=== PATIENT | female | born 1945 | race Caucasian/White ===

== ENCOUNTER → 2017-04-21 | Outpatient (CLI) | payer OTHER ==
[~2017-04-21] MED LIST: DTR/5 PO; HYDR-5688 PO; Hydrocodone PO; IPRA1AER2 INH; LEVO88TA3 PO; LOSA1TAB PO; NICO21DI4 TOP; OMEP20CA9 PO; OXYC-57 PO; PRVC40 PO; SANDOSTATIN IM; TIOT1AER INH; VNTHFA/IN INH
[2017-04-21 18:53] LABS: BLOOD UREA NITROGEN 10 mg/dl (7-18); BUN/CREATININE RATIO 15.8 (10-20); CALCIUM 8.9 mg/dl (8.5-10.1); CARBON DIOXIDE 28 mmol/L (21-32); CHLORIDE 101 mmol/L (98-107); CREATININE 0.64 mg/dl (0.60-1.20); GLUCOSE 87 mg/dl (70-99); POTASSIUM 4.1 mmol/L (3.5-5.1); SODIUM 135 mmol/L (136-145)
[2017-04-28 04:46] LABS: ACETYLCHOLINE RECEP MODULATING 14; ACETYLCHOLINE RECEPT BLOCKING <15 % inhibit (<15)
== END | disposition home or self-care (01) ==
LOC: C.LABBFT 11:39
PROVIDERS: ATTEND Psychiatry & Neurology Neurology
DX: H53.2 Diplopia (principal); R03.0 Elevated blood-pressure reading, without diagnosis of hypertension

== ENCOUNTER → 2017-07-05 | Outpatient (CLI) | payer OTHER ==
[~2017-07-05] MED LIST changes: -DTR/5 PO; -HYDR-5688 PO; -NICO21DI4 TOP; +OXYB5TAB74 PO
[2017-07-05 12:32] LABS: ALT/SGPT 19 U/L (12-78); AST/SGOT 17 U/L (15-37); BLOOD UREA NITROGEN 5 mg/dl (7-18); BUN/CREATININE RATIO 8.1 (10-20); CALCIUM 8.9 mg/dl (8.5-10.1); CARBON DIOXIDE 30 mmol/L (21-32); CHLORIDE 99 mmol/L (98-107); CREATININE 0.67 mg/dl (0.60-1.20); GLUCOSE 89 mg/dl (70-99); POTASSIUM 4.2 mmol/L (3.5-5.1); SODIUM 134 mmol/L (136-145)
[2017-07-05 12:43] LABS: ALKALINE PHOSPHATASE 93 U/L (45-117); CHOLESTEROL 150 mg/dl (0-200); CHOLESTEROL/HDL RATIO 3.9; HDL CHOLESTEROL 38 mg/dl; LDL CHOLESTEROL CALCULATED 66 mg/dl; THYROID STIMULATING HORMONE 0.116 uIu/ml (0.300-4.500); TRIGLYCERIDES 230 mg/dl (0-150); VERY LOW DENSITY LIPOPROT CALC 46 mg/dl
== END | disposition home or self-care (01) ==
LOC: C.LABBFT 09:37
PROVIDERS: ATTEND Physician Assistant Medical
DX: E78.5 Hyperlipidemia, unspecified (principal); E03.9 Hypothyroidism, unspecified; I10 Essential (primary) hypertension

== ENCOUNTER → 2017-08-10 | Outpatient (CLI) | payer OTHER ==
[~2017-08-10] MED LIST changes: -IPRA1AER2 INH; -LEVO88TA3 PO; -LOSA1TAB PO; -OMEP20CA9 PO; -OXYB5TAB74 PO; -PRVC40 PO; -SANDOSTATIN IM; -TIOT1AER INH; -VNTHFA/IN INH
--- NOTE | 2017-08-10 16:04 | DIAGNOSTIC IMAGING REPORT ---
TWO VIEW CHEST CLINICAL HISTORY: COPD. Chronic cough. FINDINGS: PA and lateral chest radiographs are compared to study dated 07/02/2013 and correlated with chest CT dated 04/28/2016. The PA view is degraded by patient rotation The cardiomediastinal silhouette is unremarkable. There is atherosclerotic calcification of the thoracic aorta. Emphysema and chronic interstitial thickening are similar to previous. No airspace consolidation or pleural effusion is identified. A nodular density projecting over the right lung base may represent a nipple shadow. There is no pneumothorax. The skeletal structures are osteopenic. Degenerative change and kyphoscoliosis are noted in the thoracic spine. Atherosclerotic calcification is seen in the carotid bulbs. IMPRESSION: 1. Emphysema with no acute cardiopulmonary abnormality. 2. A nodular density projecting over the right lower lung may represent a nipple shadow. A repeat examination with nipple markers is recommended for reassessment. Electronically signed by: Oliver Galvez M.D. 08/10/2017 4:03 PM Dictated Date/Time: 08/10/2017 4:00 PM
== END | disposition home or self-care (01) ==
LOC: C.RAD1850 15:14
PROVIDERS: ATTEND Physician Assistant Medical
DX: J44.9 Chronic obstructive pulmonary disease, unspecified (principal); R93.8 Abnormal findings on diagnostic imaging of other specified body structures

== ENCOUNTER → 2017-08-17 | Outpatient (CLI) | payer OTHER ==
[~2017-08-17] MED LIST changes: +IPRA1AER2 INH; +LEVO88TA3 PO; +LOSA1TAB PO; +OMEP20CA9 PO; +OXYB5TAB74 PO; +PRVC40 PO; +SANDOSTATIN IM; +TIOT1AER INH; +VNTHFA/IN INH
--- NOTE | 2017-08-17 17:41 | DIAGNOSTIC IMAGING REPORT ---
CHEST 2 VIEWS ROUTINE HISTORY: R93.8 Abnormal chest x-ray repeat chest x-ray to be done with nip COMPARISON: Chest 08/10/2017. FINDINGS: Mild emphysema. No pleural effusions. No pneumothorax. The nodular density seen on the prior study within the right lower lobe is no longer visualized but could be obscured on this study. This did not correspond to a nipple shadow based on this repeat examination. The left lung is clear. The heart is normal in size. IMPRESSION: The nodular density within the right lower lobe on the prior study is not clearly visualized on this examination but did not correspond to a nipple shadow. Follow-up nonemergent chest CT is recommended for further evaluation. Electronically signed by: Bala Jennings M.D. 08/17/2017 5:40 PM Dictated Date/Time: 08/17/2017 5:37 PM
== END | disposition home or self-care (01) ==
LOC: C.RAD1850 16:26
PROVIDERS: ATTEND Internal Medicine
DX: R93.8 Abnormal findings on diagnostic imaging of other specified body structures (principal)

== ENCOUNTER → 2017-08-26 | Day surgery (SDC) | payer OTHER ==
[2017-08-17 14:52] VITALS: Ht 160 cm; Wt 63.2 kg
[~2017-08-26] VITALS: Ht 160 cm; Wt 63.2 kg
[~2017-08-26] MED LIST changes: -Hydrocodone PO; +IOPAMIDOL INJ 61% 15 ML VIAL ONE; +LIDOCAINE HCL 1% MPF 5 ML VIAL ONE; +SODIUM CHLORIDE 0.9% INJ 10 ML VIAL ONE
[2017-08-26 13:27] LABS: HEMATOCRIT 37.1 % (37-47); MEAN CELL VOLUME 87.1 fL (80-100); MEAN CORPUSCULAR HEMOGLOBIN 30.5 pg (25-34); MEAN PLATELET VOLUME 9.8 fL (7.4-10.4); PLATELET COUNT 208 K/uL (130-400); RED BLOOD COUNT 4.26 M/uL (4.2-5.4); WHITE BLOOD COUNT 6.87 K/uL (4.8-10.8)
--- NOTE | 2017-08-26 14:00 | History & Physical Bridge - SC ---
H&P Re-Evaluation Bridge Note: I have examined the patient, reviewed the History & Physical and in the interval since the performance of the History & Physical I have noted the following changes of clinical significance: No changes noted
[2017-08-26 14:24] VITALS: TEMP 37.4
--- NOTE | 2017-08-26 14:31 | Discharge Instructions ---
Discharge Instructions Date of Service Aug 26, 2017. Visit Reason for Visit: Lumbar Radiculopathy Discharge Discharge Diagnosis / Problem: left leg pain Discharge Goals Goal(s): Decrease discomfort, Improve function Activity Recommendations Activity Limitations: resume your previous activity Anesthesia . Post Anesthesia Instructions: If you have had General Anesthesia or IV Sedation: * Do not drive today. * Resume driving when surgeon permits. * Do not make important decisions or sign legal documents today. * Call surgeon for: 1. Temperature elevations greater than 101 degrees F. 2. Uncontrollable pain. 3. Excessive bleeding. 4. Persistent nausea and vomiting. 5. Medication intolerance (nausea, vomiting or rash). * For nausea and vomiting use only clear liquids such as: tea, soda, bouillon until nausea subsides, then gradually increase diet as tolerated. * If you have any concerns or questions, call your surgeon's office. If physician is unavailable and it is an emergency, call 911 or go to the nearest emergency room. . Diet Recommendations Recommended Home Diet: resume previous diet Procedures Procedures Performed: LUMBAR EPIDURAL STEROID INJECTION Pending Studies Studies pending at discharge: no Medical Emergencies . Who to Call and When: Medical Emergencies: If at any time you feel your situation is an emergency, please call 911 immediately. . Non-Emergent Contact Non-Emergency issues call your: Specialist . . "Provider Documentation" section prepared by Marty Slater. .
[2017-08-26 14:35] VITALS: BP 139/75; PULSE 68; O2SAT 98
--- NOTE | 2017-08-26 14:44 | OPERATIVE REPORT ---
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 POSTOPERATIVE DIAGNOSIS: Same. PROCEDURE: Right paramedian L4-L5 interlaminar epidural steroid injection under fluoroscopic guidance. SURGEON: Dr. Marty Slater. INDICATIONS: The patient is a 71-year-old white female who was last seen 8 years ago and she did well following an SI joint injection. She represented to the office with radicular pain down the right leg. She is currently being treated for carcinoid tumor, but she is describing pain that radiates down the right L4 dermatomal distribution. X-rays revealed significant spondylytic changes with scoliosis felt that lead to foraminal stenosis causing the right L4 radiculopathy. She presents today for an injection to provide her with relief. PHYSICAL EXAMINATION: Pleasant female seated comfortably, extension reproduces pain into the buttocks area. She has normal motor and sensory exam with negative seated straight leg raises of her lower extremities. CONSENT: Verbal and written consent was obtained from the patient. Risks and benefits were reviewed. Risks include but are not limited to epidural abscess, epidural hematoma, allergic reaction and dural puncture. The patient wishes to proceed. PROCEDURE: The patient was taken back to the special procedures room of the [facility]. She was maintained in a prone position. Backside was cleansed with Betadine x3 and a dry sterile dressing was applied. Fluoroscope was used to identify the L4-L5 interlaminar space and overlying skin on the right side was anesthetized with 4 mL of lidocaine 1% with a 25 gauge 1.5-inch needle. A 22-gauge 3-1/2 inch Tuohy needle was then directed down towards the intralaminar space. It was advanced under lateral fluoroscopic guidance and loss of resistance was noted at a depth of a little more than 7 cm. Isovue-300 contrast 1 mL was injected in which demonstrated epidural uptake pattern. This was confirmed noted on the lateral view. She then underwent injection after negative aspiration of 40 mg of Depo-Medrol, 4 mL of preservative free sodium chloride. Injection was well tolerated. DISPOSITION: 1. The patient is taken out into the discharge recovery area where she will be discharged home once discharge criteria have been met. 2. Follow up in the [facility] office in 2-4 weeks. Also, it should be noted that we did check her CBC prior to the injection to assure her platelet count was adequate prior to proceeding given the chemotherapy she is on to treat her carcinoid tumor. It was 208, within the normal limits range. I attest to the content of the Intraoperative Record and any orders documented therein. Any exception s are noted below.
== END | disposition home or self-care (01) ==
LOC: X.SURG 12:26
PROVIDERS: ATTEND Physical Medicine & Rehabilitation
DX: M48.061 Spinal stenosis, lumbar region without neurogenic claudication (principal); J44.9 Chronic obstructive pulmonary disease, unspecified; K21.9 Gastro-esophageal reflux disease without esophagitis; E78.5 Hyperlipidemia, unspecified; E03.9 Hypothyroidism, unspecified; Z90.89 Acquired absence of other organs; Z98.49 Cataract extraction status, unspecified eye; Z82.49 Family history of ischemic heart disease and other diseases of the circulatory system

== ENCOUNTER → 2017-10-11 | Day surgery (SDC) | payer OTHER ==
[2017-10-04 14:54] VITALS: Ht 160 cm; Wt 63.2 kg
[~2017-10-11] VITALS: Ht 160 cm; Wt 63.2 kg
[~2017-10-11] MED LIST changes: +DTR/5 PO; +HYDR-5688 PO; -IOPAMIDOL INJ 61% 15 ML VIAL ONE; -LIDOCAINE HCL 1% MPF 5 ML VIAL ONE; +LIDOCAINE HCL 2% 2 ML VIAL (20MG/ML) ONE; +NICO21DI4 TOP; -OXYB5TAB74 PO; -OXYC-57 PO; +PROPOFOL IV EMULSION 10 MG/ML 20 ML VIAL IV ONE; -SODIUM CHLORIDE 0.9% INJ 10 ML VIAL ONE; -TIOT1AER INH
--- NOTE | 2017-10-11 15:52 | Endo History and Physical ---
History & Physical Date of Service: Oct 11, 2017. Chief Complaint: Carcinoid Tumor Referring Physician: Dr Philomena Marquis History of Present Illness For EGD and colonoscopy Past Medical History Cancer, COPD, Thyroid Disease Past Surgical History Hx Cardiac Surgery: No Hx Internal Defibrillator: No Hx Pacemaker: No Hx Abdominal Surgery: Yes (SPEEDY, HYSTER, APPY) Hx of Implantable Prosthesis: No Hx Post-Op Nausea and Vomiting: No Hx Cancer Surgery: Yes (COLON RESECTION) Hx Thoracic Surgery: No Hx Orthopedic: No Hx Urinary Tract Surgery: No Family History None Social History Smoking Status: Current Every Day Smoker Hx Substance Use: Yes (SEE MED REC) Hx Alcohol Use: No Allergies Coded Allergies: No Known Allergies (Verified , 10/11/17) Current Medications Reported Home Medications Medications Dose Route/Sig Max Daily Dose Days Date Category Dose Instructions Nicoderm Cq (Nicotine) 21 Mg/24 Hr Dis 1 Patch TOP DAILY 10/04/17 Reported [place] 5MG/325MG (Acetaminophen/Hydrocodone Bitart) Tab 1-2 Tabs PO Q4H PRN 10/04/17 Reported PRN PAIN [Sandostatin] 1 Dose IM MONTHLY 08/17/17 Reported Pravastatin Sodium (Pravastatin Sod) 40 Mg Tab 1 Tab PO HS 08/17/17 Reported Ditropan (Oxybutynin Chloride) 5 Mg Tab 1 Tab PO BID 08/17/17 Reported Prilosec (Omeprazole) 20 Mg Cap 20 Mg PO QAM 08/17/17 Reported Cozaar (Losartan Potassium) 25 Mg Tab 25 Mg PO QAM 08/17/17 Reported Levothyroxine Sodium 88 Mcg Tab 1 Tab PO QAM 08/17/17 Reported Combivent Respimat (Ipratropium-Albuterol) 1 Aer Aer 1 Puffs INH QID 08/17/17 Reported Ventolin Hfa (Albuterol) 200 Puffs/02438 Mcg Aers 2-4 Puffs INH Q6H PRN 08/17/17 Reported Vital Signs Weight (Kilograms): 63.18 Height (Feet): 5 Height (Inches): 3 Date Time Temp Pulse Resp B/P (MAP) Pulse Ox O2 Delivery O2 Flow Rate FiO2 10/11/17 15:26 36.9 86 20 153/80 (104) 100 Room Air Physical Exam General Appearance: + thin Respiratory/Chest: Respiratory effort: no dyspnea Cardiovascular: Heart Auscultation: RRR Abdomen: Inspection & Palpation: soft Assessment and Plan Recurrent carcinoid for EGD and colonoscopy
--- NOTE | 2017-10-11 16:25 | Discharge Instructions ---
Endoscopy Patient Instructions Date / Procedure(s) Performed Oct 11, 2017. Colonoscopy, EGD Allergy Information Coded Allergies: No Known Allergies (Verified , 10/11/17) Discharge Date / Findings Oct 11, 2017. Vu's, retained gastric fluid, post op colon Medication Instructions Restart Stopped Medication(s): resume meds Reported Home Medications Medications Dose Route/Sig Max Daily Dose Days Date Category Dose Instructions Nicoderm Cq (Nicotine) 21 Mg/24 Hr Dis 1 Patch TOP DAILY 10/04/17 Reported [place] 5MG/325MG (Acetaminophen/Hydrocodone Bitart) Tab 1-2 Tabs PO Q4H PRN 10/04/17 Reported PRN PAIN [Sandostatin] 1 Dose IM MONTHLY 08/17/17 Reported Pravastatin Sodium (Pravastatin Sod) 40 Mg Tab 1 Tab PO HS 08/17/17 Reported Ditropan (Oxybutynin Chloride) 5 Mg Tab 1 Tab PO BID 08/17/17 Reported Prilosec (Omeprazole) 20 Mg Cap 20 Mg PO QAM 08/17/17 Reported Cozaar (Losartan Potassium) 25 Mg Tab 25 Mg PO QAM 08/17/17 Reported Levothyroxine Sodium 88 Mcg Tab 1 Tab PO QAM 08/17/17 Reported Combivent Respimat (Ipratropium-Albuterol) 1 Aer Aer 1 Puffs INH QID 08/17/17 Reported Ventolin Hfa (Albuterol) 200 Puffs/83608 Mcg Aers 2-4 Puffs INH Q6H PRN 08/17/17 Reported Provider Instructions Activity Restrictions - No exercising or heavy lifting for 24 hours. - Do not drink alcohol the day of the procedure. - Do not drive a car or operate machinery until the day after the procedure. - Do not make any important decisions or sign important papers in 24 hours after the procedure. Following Day: - Return to full activity which may include returning to work/school. Diet Start your diet with liquids and light foods (jello, soup, juice, toast). Then eat your usual diet if not nauseated. Treatment For Common After Affects For mild abdominal pain, bloating, or excessive gas: - Rest - Eat lightly - Lie on right side Follow-Up Information Follow-up with Dr Mo, Dr Quach as scheduled Anesthesia Information What You Should Know You have had a procedure that required some medicine to reduce anxiety and discomfort. This treatment is called moderate sedation. After receiving the treatment, you may be sleepy, but you will be able to breathe on your own. The effects of the treatment may last for several hours. Follow these instructions along with Activity/Diet recommendations noted above: * Do NOT do anything where dizziness or clumsiness would be dangerous. * Rest quietly at home today, then you can be up and about tomorrow. * Have a responsible person stay with you the rest of today. * You may have had an I.V. today. If so, you may take the dressing off later today. Recommendations Call your doctor if: * Trouble breathing * Continuous vomiting for more than 24 hours * Temperature above 101 degrees * Severe abdominal pain or bloating * Pain not relieved by pain medicine ordered * There is increased drainage or redness from any incision * A large amount of rectal bleeding greater than 2-3 tablespoons. (If you had a polyp/s removed or have hemorrhoids, a small amount of blood - from the rectum is to be expected.) * You have any unanswered questions or concerns. IN THE EVENT OF A SERIOUS EMERGENCY, GO TO THE NEAREST EMERGENCY ROOM Your discharge instructions were prepared by provider Kevon Esteves. Patient Instructions Signature Page Estefania Krishnan Patient (or Guardian) Signature/Date: I have read and understand the instructions given to me by my caregivers. Caregiver/RN/Doctor Signature/Date: The above-named patient and/or guardian has received patient instructions on this date. + Original Patient Signature Page (only) stays with chart. Please make copy for patient.
--- NOTE | 2017-10-11 16:29 | GI REPORT ---
Procedure Date: 10/11/2017 3:50 PM Procedure: Upper GI endoscopy Indications: Postoperative assessment Medicines: Propofol total dose 200 mg IV, Lidocaine 40 mg IV Complications: No immediate complications. Estimated Blood Loss: Estimated blood loss: none. Procedure: Pre-Anesthesia Assessment: - Prior to the procedure, a History and Physical was performed, and patient medications, allergies and sensitivities were reviewed. The patient's tolerance of previous anesthesia was reviewed. - The risks and benefits of the procedure and the sedation options and risks were discussed with the patient. All questions were answered and informed consent was obtained. After obtaining informed consent, the endoscope was passed under direct vision. Throughout the procedure, the patient's blood pressure, pulse, and oxygen saturations were monitored continuously. The On-site loaner was introduced through the mouth, and advanced to the second part of duodenum. The upper GI endoscopy was accomplished without difficulty. The patient tolerated the procedure well. Findings: There were esophageal mucosal changes suspicious for short-segment Vu's esophagus present at the gastroesophageal junction. Bilious fluid was found in the gastric body. The examined duodenum was normal. 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 - Bilious gastric fluid. - Normal examined duodenum. - No specimens collected. Recommendation: - Discharge patient to home (ambulatory). - Continue present medications. - Return to primary care physician PRN. Kevon Esteves M.D. Kevon Esteves MD 10/11/2017 4:28:58 PM This report has been signed electronically. Note Initiated On: 10/11/2017 3:50 PM I attest to the content of the Intraoperative Record and orders documented therein, exceptions below
--- NOTE | 2017-10-11 16:30 | Anesthesiology Progress Note ---
Anesthesia Post Op Note Date & Time Oct 11, 2017 at 16:30 Vital Signs Vital Signs Past 12 Hours Date Time Temp Pulse Resp B/P (MAP) Pulse Ox O2 Delivery O2 Flow Rate FiO2 10/11/17 15:26 36.9 86 20 153/80 (104) 100 Room Air Notes Mental Status: alert / awake / arousable, participated in evaluation Pt Amnestic to Procedure: Yes Nausea / Vomiting: adequately controlled Pain: adequately controlled Airway Patency, RR, SpO2: stable & adequate BP & HR: stable & adequate Hydration State: stable & adequate Anesthetic Complications: no major complications apparent
--- NOTE | 2017-10-11 16:31 | GI REPORT ---
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 Estimated Blood Loss: Estimated blood loss: none. Procedure: Pre-Anesthesia Assessment: - Prior to the procedure, a History and Physical was performed, and patient medications, allergies and sensitivities were reviewed. The patient's tolerance of previous anesthesia was reviewed. - The risks and benefits of the procedure and the sedation options and risks were discussed with the patient. All questions were answered and informed consent was obtained. After I obtained informed consent, the scope was passed under direct vision. Throughout the procedure, the patient's blood pressure, pulse, and oxygen saturations were monitored continuously. The scope was introduced through the anus and advanced to the terminal ileum. The colonoscopy was performed without difficulty. The patient tolerated the procedure well. The quality of the bowel preparation was good. Findings: There was evidence of a prior end-to-side ileo-colonic anastomosis in the ascending colon. This was patent and was characterized by healthy appearing mucosa. The anastomosis was traversed. The ritika-terminal ileum appeared normal. Impression: - Patent end-to-side ileo-colonic anastomosis, characterized by healthy appearing mucosa. - The examined portion of the ileum was normal. - No specimens collected. Recommendation: - Discharge patient to home (ambulatory). - Continue present medications. - Return to primary care physician PRN. Kevon Esteves M.D. Kevon Esteves MD 10/11/2017 4:31:38 PM This report has been signed electronically. Note Initiated On: 10/11/2017 4:08 PM I attest to the content of the Intraoperative Record and orders documented therein, exceptions below
[2017-10-11 16:57] VITALS: BP 157/87; PULSE 65; O2SAT 98
== END | disposition home or self-care (01) ==
LOC: C.GI 14:39
PROVIDERS: ATTEND Internal Medicine Gastroenterology
DX: K22.9 Disease of esophagus, unspecified (principal); Z85.030 Personal history of malignant carcinoid tumor of large intestine; Z98.0 Intestinal bypass and anastomosis status; J44.9 Chronic obstructive pulmonary disease, unspecified

== ENCOUNTER → 2018-01-06 | Outpatient (CLI) | payer OTHER ==
[~2018-01-06] MED LIST changes: -LIDOCAINE HCL 2% 2 ML VIAL (20MG/ML) ONE; -PROPOFOL IV EMULSION 10 MG/ML 20 ML VIAL IV ONE
[2018-01-06 17:42] LABS: BASO % 0.6 %; BASO ABS # 0.03 K/uL (0-0.2); EOS % 0.9 %; EOS ABS # 0.05 K/uL (0-0.5); HEMATOCRIT 36.9 % (37-47); HEMOGLOBIN 12.6 g/dL (12.0-16.0); IG# 0.01 K/uL (0.00-0.02); LYMPH ABS # 2.39 K/uL (1.2-3.4); MEAN CELL VOLUME 89.3 fL (80-100); MEAN CORPUSCULAR HEMOGLOBIN 30.5 pg (25-34); MEAN CORPUSCULAR HGB CONC 34.1 g/dl (32-36); MEAN PLATELET VOLUME 10.3 fL (7.4-10.4); MONO % 9.2 %; NEUT % 45.1 %; NEUT ABS # 2.45 K/uL (1.4-6.5); PLATELET COUNT 215 K/uL (130-400); RED CELL DISTRIBUTION WIDTH CV 13.6 % (11.5-14.5); RED CELL DISTRIBUTION WIDTH SD 44.7 fL (36.4-46.3); WHITE BLOOD COUNT 5.43 K/uL (4.8-10.8)
[2018-01-06 17:49] LABS: ALBUMIN 3.9 gm/dl (3.4-5.0); ALT/SGPT 22 U/L (12-78); AST/SGOT 21 U/L (15-37); BLOOD UREA NITROGEN 10 mg/dl (7-18); CALCIUM 9.1 mg/dl (8.5-10.1); CARBON DIOXIDE 27 mmol/L (21-32); CHOLESTEROL 174 mg/dl (0-200); CREATININE 0.81 mg/dl (0.60-1.20); GLUCOSE 91 mg/dl (70-99); POTASSIUM 4.6 mmol/L (3.5-5.1); SODIUM 130 mmol/L (136-145)
[2018-01-06 18:00] LABS: ALKALINE PHOSPHATASE 72 U/L (45-117); LDL CHOLESTEROL CALCULATED 91 mg/dl; TOTAL PROTEIN 7.5 gm/dl (6.4-8.2)
== END | disposition home or self-care (01) ==
LOC: C.LABBFT 12:06
PROVIDERS: ATTEND Internal Medicine
DX: E03.9 Hypothyroidism, unspecified (principal); E78.5 Hyperlipidemia, unspecified; I10 Essential (primary) hypertension

== ENCOUNTER → 2018-03-23 | Outpatient (CLI) | payer OTHER ==
--- NOTE | 2018-03-23 17:30 | DIAGNOSTIC IMAGING REPORT ---
CHEST 2 VIEWS ROUTINE HISTORY: R05 Cough productive of purulent rxyiumE15.02 Shortness of breat COMPARISON: Chest 08/17/2017. FINDINGS: The lungs are hyperexpanded with apical predominant emphysematous changes. No focal lung consolidations to suggest pneumonia. No evidence for pulmonary edema. No pleural effusions. No pneumothorax. The heart is normal in size. Dextroscoliosis of the thoracolumbar spine. IMPRESSION: Emphysema. No acute process within the chest. Electronically signed by: Bala Jennings M.D. 03/23/2018 5:29 PM Dictated Date/Time: 03/23/2018 5:28 PM
== END | disposition home or self-care (01) ==
LOC: C.RAD1850 16:22
PROVIDERS: ATTEND Internal Medicine
DX: J43.9 Emphysema, unspecified (principal)

== ENCOUNTER 2024-04-01 16:54 | Observation (INO) ==
--- NOTE | 2024-04-01 17:17 | Emergency Department Note ---
Impression & Plan Pneumonia, Hypotension, Transaminitis ED Provider Note NAME: RJ MOTTA AGE: 78 SEX: F : 1945 ARRIVES VIA: Walk-In INFORMANT: Patient ED PROVIDER(S): Herminio Rodriguez DO CHIEF COMPLAINT: cough HPI: Patient is a 78-year-old female with a past medical history of pulmonary nodules, coronary artery calcification, hypothyroidism, GERD, COPD and hypertension for not feeling well. Symptoms started on Wednesday with worsening cough and congestion. She had diarrhea for 1 day and that resolved on . She feels weak and rundown. She denies any headache or change in vision. No chest pain or shortness of breath. No dysuria, urgency or frequency. No other exacerbating or remitting factors. ADDITIONAL HISTORY OBTAINED: Per HPI Chronic Medical/Social Conditions Affecting Care: Per HPI PAST MEDICAL HISTORY:See Below PAST SURGICAL HISTORY:See Below FAMILY HISTORY:See Below SOCIAL HISTORY:See Below HOME MEDICATIONS:See Below ALLERGIES:See Below VITALS:See Below PHYSICAL EXAMINATION: GENERAL: Sitting up in bed, alert, well appearing, cachectic, coughing EYE EXAM: normal conjunctiva. PERRL and EOM's grossly intact. OROPHARYNX: no exudate, no erythema, lips, buccal mucosa, and tongue normal and mucous membranes are moist NECK: supple, no nuchal rigidity, no adenopathy, non-tender LUNGS: Clear to auscultation. Normal chest wall mechanics HEART: no murmurs, S1 normal and S2 normal ABDOMEN: abdomen soft, non-tender, normo-active bowel sounds, no masses, no rebound or guarding. UPPER EXTREMITIES: upper extremities are grossly normal. LOWER EXTREMITIES: No pitting edema. NEURO EXAM: Normal sensorium, cranial nerves II-XII grossly intact, normal speech, no gross weakness of arms, no gross weakness of legs. MEDICAL DECISION MAKING: Patient is a 78-year-old female who presents ER with above-stated complaint. IV was established blood was obtained. Labs show no significant leukocytosis or anemia. BMP with slightly elevated glucose at 179. Mild transaminitis. Troponin was negative. Lipase normal. Viral panel was negative. Chest x-ray consistent with pneumonia. She was hypotensive with systolics in the 90s. Patient was given IV fluids and systolics improved. She was given IV Rocephin and azithromycin and updated bedside discussed with the hospitalist for pneumonia secondary to her curb 65 score. Consults/Care Managements Discussions: Per MDM Triage Nursing notes reviewed. Limited review of prior medical records performed Vital Signs: reviewed and remarkable for hypotension Differential diagnosis: Differential diagnoses includes but is not limited to pneumonia, bronchitis, COPD/Asthma exacerbation, pneumothorax, pulmonary embolism, congestive heart failure, acute coronary syndrome ER treatment provided: See below Diagnostics interpreted by me include EKG and cardiac monitoring as listed below: -Cardiac Monitoring: An order was placed for continuous cardiac monitoring. The monitor shows a rate of 85 with sinus rhythm. -ECG: Sinus rhythm rate 87 Normal axis New PVCs QTc 438 -Laboratory studies:Interpreted by me as stated above in MDM and shown below. Imaging studies: Xrays: As interpreted by me: Portable AP upright 1 view of the chest shows pneumonia CTs show: none Procedures:none Critical Care: None Past Med/Surg History Problem List (Updated 04/01/24 @ 21:00 by Herminio Rodriguez DO) Transaminitis (Acute) Hypotension (Acute) Pneumonia (Acute) Multiple pulmonary nodules determined by computed tomography of lung Paresthesia of right lower extremity Scoliosis of thoracolumbar spine Neuroforaminal stenosis of lumbar spine Coronary artery calcification seen on CAT scan Vitamin D deficiency Esophageal dysphagia Chronic neck and back pain Barretts esophagus (Acute) Hyperactivity of bladder (Acute) Impaired fasting glucose (Acute) Hypothyroidism (Chronic) Hypercholesteremia (Chronic) Osteoporosis GERD (gastroesophageal reflux disease) COPD (chronic obstructive pulmonary disease) (Acute) inhalers/nebulizers daily and prn 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 Scoliosis Hypertension (Chronic) Medical History Multiple pulmonary nodules determined by computed tomography of lung Paresthesia of right lower extremity Scoliosis of thoracolumbar spine 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 Hypertension Scoliosis History of stomach ulcers Anemia Cardiac murmur no lard maker History of angina 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--following with PCP Surgical History History of dilatation and curettage x2 History of open reduction and internal fixation (ORIF) procedure R khaliday--hardware removed History of colonoscopy last 2018 History of esophagogastroduodenoscopy (EGD) last 11/2022 History of total abdominal hysterectomy and bilateral salpingo-oophorectomy 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[facility] [place] d/t colon cancer History of tooth extraction all teeth removed History of tonsillectomy History of bilateral cataract extraction Hx of appendectomy History of cholecystectomy Family History Son Type 1 diabetes mellitus Father Myocardial infarction Mother Aneurysm of aortic arch Sister Rheumatoid arthritis Leukemia Mantle cell lymphoma Unknown Thyroid disorder Other No family history of adverse response to anesthesia Denies family history of Ovarian cancer Prostate cancer Breast cancer Colorectal cancer Social History Smoking Status: Current every day smoker Tobacco Type: Cigarettes Age Started Using Tobacco: 20; packs per day: 0.25; Cigarettes Per Day: 3-4 a day (advised on policy); Second Hand Exposure: Yes (parents smoked); Do You Dip or Chew Tobacco: No; Hx Alcohol Use: No Hx Substance Use: No Preferred Language: Swedish Communication Ability: Effective Visual Impairment: No Limitations Hearing Ability: Normal Qc Chemist Required: No Beliefs That Will Affect Care: None marital status: Single Current Living Situation: Alone Current Living Situation Comment: has aide come in current occupational status: retired 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, 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) Feels Safe at Home: Yes Childhood Exposure to Second-Hand Smoke: Yes Diet: regular caffeine: No Dental Care, Regularly: No Physical Activity Frequency: Daily Seatbelt Use: always Sunscreen Use: No Assistive Devices: Denture - Upper, Denture - Lower, Glasses, Nebulizer and Walker Allergies Allergies Allergy/AdvReac Type Severity Reaction Status Date / Time epoxy resin Allergy Intermediate rash, get Verified 04/01/24 18:10 very sick Home Meds Home Medications Medication Instructions Recorded Confirmed acetaminophen 325 mg tablet 325 mg PO Q6H PRN Pain 06/07/19 04/01/24 magnesium oxide 400 mg PO QAM 10/08/23 04/01/24 alendronate 70 mg tablet (Fosamax) 70 mg PO WK 03/12/24 04/01/24 Previous Rx's Medication Instructions Recorded cyclobenzaprine 10 mg tablet 10 mg PO TID PRN muscle spasm #90 03/11/23 tabs octreotide,microspheres 20 mg 20 mg IM MONTHLY #1 ea 04/30/23 intramuscular susp, extended release ipratropium 0.5 mg-albuterol 3 mg 3 ml NEB Q4 PRN sob #180 mL 05/25/23 (2.5 mg base)/3 mL nebulization soln fluticasone fur. 100 mcg-umeclid 1 inh inhalation QAM #60 ea 07/27/23 62.5 mcg-vilant 25 mcg inhalat.powder (Trelegy Ellipta) fluticasone propionate 50 2 spray intranasal QAM #11.1 mL 11/30/23 mcg/actuation nasal spray,suspension (Flonase Allergy Relief) pantoprazole 40 mg tablet,delayed 40 mg PO QAM #30 tabs 11/30/23 release oxybutynin chloride 5 mg tablet 5 mg PO BID #60 tabs 12/07/23 rosuvastatin 40 mg tablet (Crestor) 40 mg PO HS #90 tabs 12/07/23 hydrocodone 5 mg-acetaminophen 325 1 tab PO Q6H PRN Pain #30 tabs 01/25/24 mg tablet losartan 25 mg tablet (Cozaar) 25 mg PO QAM #100 tabs 02/08/24 levothyroxine 50 mcg tablet 50 mcg PO QAM #90 tabs 02/27/24 albuterol sulfate 90 mcg/actuation 2 puff inhalation Q4H PRN 03/15/24 aerosol inhaler (Ventolin HFA) Shortness Of Breath #18 grams Results & Data (ED) Vital Signs Vital Signs - 24 hr 04/01/24 16:56 04/01/24 17:05 04/01/24 17:33 Temperature 36.9 C Temperature Source Temporal Artery Scan Pulse Rate 87 82 Pulse Rate [Apical] Respiratory Rate 19 Respiratory Effort / Characteristics Respiratory Depth Blood Pressure 91/56 L Blood Pressure [Left Arm] Blood Pressure Mean 67 Blood Pressure Mean [Left Arm] Blood Pressure Position [Left Arm] Pulse Oximetry 96 96 Oxygen Delivery Method Room Air Room Air Sepsis Recent Fever Within 48 Hours Yes Sepsis New/Unexplained Change in Mental Status N/A Sepsis Action Taken by Nursing No Action Required 04/01/24 18:01 04/01/24 18:55 04/01/24 20:00 Temperature Temperature Source Pulse Rate 84 Pulse Rate [Apical] 87 86 Respiratory Rate 22 22 18 Respiratory Effort / Characteristics Non-Labored Non-Labored Respiratory Depth Normal Normal Blood Pressure 123/79 Blood Pressure [Left Arm] 123/79 119/76 Blood Pressure Mean 93 Blood Pressure Mean [Left Arm] 93 90 Blood Pressure Position [Left Arm] Sitting Pulse Oximetry 96 95 95 Oxygen Delivery Method Room Air Room Air Sepsis Recent Fever Within 48 Hours Sepsis New/Unexplained Change in Mental Status Sepsis Action Taken by Nursing Laboratory Data 04/01/24 17:25 04/01/24 17:25 Lab Results 04/01/24 04/01/24 04/01/24 Range/Units 17:13 17:25 19:17 WBC 5.10 (4.8-10.8) K/ul RBC 3.99 L (4.20-5.40) M/uL Hgb 12.2 (12.0-16.0) g/dl Hct 36.7 L (37.0-47.0) % MCV 92.0 (80.0-100.0) fL MCH 30.6 (25.0-34.0) pg MCHC 33.2 (32.0-36.0) g/dL RDW Std Deviation 48.0 H (36.4-46.3) fL RDW Coeff of Nichole 14.1 (11.5-14.5) % Plt Count 151 (130-400) K/uL MPV 10.1 (9.4-12.4) fL Immature Gran % (Auto) 0.4 % Neut % (Auto) 71.1 % Lymph % (Auto) 21.2 % [place] % (Auto) 6.9 % Eos % (Auto) 0.2 % Baso % (Auto) 0.2 % Neut # (Auto) 3.63 (1.40-6.50) K/uL Lymph # (Auto) 1.08 L (1.20-3.40) K/uL [place] # (Auto) 0.35 (0.11-0.59) K/uL Eos # (Auto) 0.01 (0.00-0.50) K/uL Baso # (Auto) 0.01 (0.00-0.20) K/uL Immature Gran # (Auto) 0.02 (0.01-0.20) K/uL Sodium 135 L (136-145) mmol/L Potassium 3.5 (3.5-5.1) mmol/L Chloride 101 (98-107) mmol/L Carbon Dioxide 24 (21-32) mmol/L Anion Gap 10 (3-11) BUN 13 (6-23) mg/dl Creatinine 1.20 (0.6-1.2) mg/dl Est Cr Clr Drug Dosing Not Reportable Est GFR ( Amer) 50.8 ml/min Est GFR (Non-Af Amer) 43.9 ml/min BUN/Creatinine Ratio 10.8 (10-20) Glucose 139 H (70-99(Fasting)) mg/dl POC Glucose 179 H (70-99) mg/dl Calcium 9.2 (8.6-10.3) mg/dl Total Bilirubin 1.2 H (0.2-1.0) mg/dl AST 122 H (13-39) U/L ALT 78 H (7-52) U/L Alkaline Phosphatase 127 H (34-104) U/L Troponin I High Sens 10.0 (0-14) pg/ml B-Natriuretic Peptide 38 (0-100) pg/ml Total Protein 7.1 (6.0-8.3) gm/dl Albumin 3.8 (3.4-5.0) gm/dl Globulin 3.3 (2.5-4.0) gm/dl Albumin/Globulin Ratio 1.2 (0.9-2) Lipase 12 (11-82) U/L Adenovirus (PCR) Not Detected (NotDetected) B. pertussis DNA (PCR) Not Detected (NotDetected) B.parapertussis DNA PCR Not Detected (NotDetected) C. pneumoniae DNA (PCR) Not Detected (NotDetected) Coronavirus OC43 (PCR) Not Detected (NotDetected) Coronavirus HKU1 (PCR) Not Detected (NotDetected) Coronavirus 229E (PCR) Not Detected (NotDetected) SARS-CoV-2 (PCR) Not Detected (NotDetected) Coronavirus NL63 (PCR) Not Detected (NotDetected) Human Metapneumovir PCR Not Detected (NotDetected) Influenza Type A (PCR) Not Detected (NotDetected) Influenza Type B (PCR) Not Detected (NotDetected) M. pneumoniae (PCR) Not Detected (NotDetected) Parainfluenza 1 (PCR) Not Detected (NotDetected) Parainfluenza 2 (PCR) Not Detected (NotDetected) Parainfluenza 3 (PCR) Not Detected (NotDetected) Parainfluenza 4 (PCR) Not Detected (NotDetected) RSV (PCR) Not Detected (NotDetected) Entero/Rhino (PCR) Not Detected (NotDetected) Administered Medications Insulin Aspart (Insulin Aspart Per Unit Charge) 0 units SC ACHS MEERA Stop: 05/01/24 20:59 Last Admin: 04/01/24 20:45 Dose: 2 units Documented By: MMG Co-signed By: JW Discontinued Medications Albuterol (Albut/Ipratrop 3mg/0.5mg Neb 3 Ml Vial) 3 ml NEB NOW STA; Protocol Stop: 04/01/24 17:07 Last Admin: 04/01/24 17:18 Dose: 3 ml Documented By: OAC Benzonatate (Benzonatate 100 Mg Capsule) 100 mg PO NOW ONE Stop: 04/01/24 17:07 Last Admin: 04/01/24 17:18 Dose: 100 mg Documented By: OAC Sodium Chloride (Nss) 1,000 mls @ 999 mls/hr IV .Q1H1M ONE Stop: 04/01/24 18:05 Last Infusion: 04/01/24 18:31 Dose: Infused Documented By: Admin: 04/01/24 17:19 Dose: 999 mls/hr Documented By: OAC Ceftriaxone Sodium (Rocephin) 2,000 mg in 50 mls @ 100 mls/hr IV NOW STA Stop: 04/01/24 18:56 Last Infusion: 04/01/24 19:19 Dose: Infused Documented By: Admin: 04/01/24 18:43 Dose: 100 mls/hr Documented By: OAC Azithromycin 500 mg/ Dextrose 255 mls @ 125 mls/hr IV NOW ONE Stop: 04/01/24 20:29 Last Admin: 04/01/24 19:59 Dose: 125 mls/hr Documented By: MMG Lactated Ringer's (Lr) 500 mls @ 999 mls/hr IV .Q31M ONE Stop: 04/01/24 19:22 Last Admin: 04/01/24 19:01 Dose: Not Given Documented By: CHRIS Parenteral Electrolytes (Plasma-Lyte A Ph 7.4) 500 mls @ 999 mls/hr IV .Q31M ONE Stop: 04/01/24 19:30 Last Infusion: 04/01/24 20:00 Dose: Infused Documented By: Admin: 04/01/24 19:18 Dose: 999 mls/hr Documented By: CHRIS Methylprednisolone (Methylprednisolone 125 Mg/2 Ml Vial) 40 mg IV NOW STA Stop: 04/01/24 17:07 Last Admin: 04/01/24 17:18 Dose: 40 mg Documented By: OAC Imaging Data Radiologist's Impression: Chest X-Ray 04/01/24 17:05 XR chest 1V portable HISTORY: Chest pain, nonspecific COMPARISON: Chest 01/07/2023. FINDINGS: No pneumothorax. No pleural effusions. The cardiac silhouette is normal in size. There are old, healed left-sided rib fractures again noted. Scoliosis, unchanged. Diffuse interstitial thickening is noted. There is patchy airspace opacities within the left midlung zone. IMPRESSION: 1. Diffuse interstitial thickening. This may be chronic. 2. Patchy hazy airspace opacities within the left midlung zone. This could represent chronic interstitial change or a mild pneumonitis. ACT 112: Negative or not required by law. Electronically signed by: Bala Jennings M.D. 04/01/2024 5:47 PM Discharge Plan Visit Data Chief Complaint: Cough Stated Complaint: WEIGHT LOSS, COUGH, PNEUMONIA ED Provider: Herminio Rodriguez Discharge Problem: Pneumonia, Hypotension, Transaminitis Patient Disposition: Admitted As Inpatient Discharge Instructions Interventions: ED Discharge Assessment Last Done: 04/01/24 20:58 Forms Stand Alone Forms: My [facility] [employer] Prescriptions Prescriptions: No Action cyclobenzaprine 10 mg tablet 10 mg PO TID PRN (Reason: muscle spasm) Qty: 90 6RF octreotide,microspheres 20 mg suspension,extended rel recon 20 mg IM MONTHLY Qty: 1 0RF Rx Instructions: DUE 03/15/24 ipratropium-albuterol 0.5 mg-3 mg(2.5 mg base)/3 mL solution for nebulization 3 ml NEB Q4 PRN (Reason: sob) Qty: 180 5RF Trelegy Ellipta 100-62.5-25 mcg blister with device 1 inh INH QAM Qty: 60 5RF fluticasone propionate [Flonase Allergy Relief] 50 mcg/actuation spray,suspension 2 spray INTRANASAL QAM Qty: 11.1 6RF pantoprazole 40 mg tablet,delayed release (DR/EC) 40 mg PO QAM Qty: 30 5RF oxybutynin chloride 5 mg tablet 5 mg PO BID Qty: 60 5RF rosuvastatin [Crestor] 40 mg tablet 40 mg PO HS Qty: 90 3RF hydrocodone-acetaminophen 5-325 mg tablet 1 tab PO Q6H PRN (Reason: Pain) Qty: 30 0RF losartan [Cozaar] 25 mg tablet 25 mg PO QAM Qty: 100 3RF levothyroxine 50 mcg tablet 50 mcg PO QAM Qty: 90 3RF albuterol sulfate [Ventolin HFA] 90 mcg/actuation HFA aerosol inhaler 2 puff INHALATION Q4H PRN (Reason: Shortness Of Breath) Qty: 18 3RF acetaminophen 325 mg tablet 325 mg PO Q6H PRN (Reason: Pain) magnesium oxide 400 mg magnesium Tablet 400 mg PO QAM alendronate [Fosamax] 70 mg tablet 70 mg PO WK Rx Instructions: WEDNESDAY Referrals Referrals: Rosy Delgado MD [Primary Care Provider] - Discharge Problem: Pneumonia Qualifiers: Pneumonia type: due to unspecified organism Laterality: unspecified laterality Lung location: unspecified part of lung Qualified Code(s): J18.9 - Pneumonia, unspecified organism Hypotension Qualifiers: Hypotension type: unspecified hypotension type Qualified Code(s): I95.9 - Hypotension, unspecified
[2024-04-01] MEDS: ALBUT/IPRATROP 3MG/0.5MG NEB 3 ML VIAL NEB STA (17:18)
[2024-04-01] MEDS: BENZONATATE 100 MG CAPSULE PO ONE (17:18)
[2024-04-01] MEDS: methylPREDNISolone 125 MG/2 ML VIAL IV STA (17:18)
[2024-04-01] MEDS: SODIUM CHLORIDE 0.9% 1,000 ML IV ONE (17:19)
[2024-04-01 17:40] LABS: Basophils # (auto) 0.01 K/uL (0.00-0.20); Basophils % (auto) 0.2 %; Eosinophils # (auto) 0.01 K/uL (0.00-0.50); Eosinophils % (auto) 0.2 %; Hematocrit (blood only) 36.7 % (37.0-47.0); Hemoglobin 12.2 g/dl (12.0-16.0); Immature Granulocytes # (auto) 0.02 K/uL (0.01-0.20); Immature Granulocytes % (auto) 0.4 %; Lymphocytes # (auto) 1.08 K/uL (1.20-3.40); Lymphocytes % (auto) 21.2 %; Mean Corpuscular Hemoglobin 30.6 pg (25.0-34.0); Mean Corpuscular Hgb Conc 33.2 g/dL (32.0-36.0); Mean Platelet Volume 10.1 fL (9.4-12.4); Monocytes # (auto) 0.35 K/uL (0.11-0.59); Monocytes % (auto) 6.9 %; Neutrophils # (auto) 3.63 K/uL (1.40-6.50); Neutrophils % (auto) 71.1 %; Platelet Count 151 K/uL (130-400); RDW Coefficient of Variation 14.1 % (11.5-14.5); Red Blood Count 3.99 M/uL (4.20-5.40)
--- NOTE | 2024-04-01 17:49 | XRay Report ---
XR chest 1V portable HISTORY: Chest pain, nonspecific COMPARISON: Chest 01/07/2023. FINDINGS: No pneumothorax. No pleural effusions. The cardiac silhouette is normal in size. There are old, healed left-sided rib fractures again noted. Scoliosis, unchanged. Diffuse interstitial thickeni ng is noted. There is patchy airspace opacities within the left midlung zone. IMPRESSION: 1. Diffuse interstitial thickening. This may be chronic. 2. Patchy hazy airspace opacities within the left midlung zone. This could represent chronic intersti tial change or a mild pneumonitis. ACT 112: Negative or not required by law. Electronically signed by: Bala Jennings M.D. 04/01/2024 5:47 PM
[2024-04-01 17:55] LABS: Alanine Aminotransferase 78 U/L (7-52); Albumin Globulin Ratio 1.2 (0.9-2); Albumin Level 3.8 gm/dl (3.4-5.0); Alkaline Phosphatase 127 U/L (34-104); Anion Gap 10 (3-11); Aspartate Aminotransferase 122 U/L (13-39); BUN Creatinine Ratio 10.8 (10-20); Bilirubin,Total 1.2 mg/dl (0.2-1.0); Blood Urea Nitrogen 13 mg/dl (6-23); Calcium 9.2 mg/dl (8.6-10.3); Carbon Dioxide 24 mmol/L (21-32); Chloride 101 mmol/L (98-107); Est GFR (African American) 50.8 ml/min; Est GFR (Non-African American) 43.9 ml/min; Globulin 3.3 gm/dl (2.5-4.0); Glucose 139 mg/dl (70-99(Fasting)); Lipase 12 U/L (11-82); Potassium 3.5 mmol/L (3.5-5.1); Sodium 135 mmol/L (136-145); Total Protein 7.1 gm/dl (6.0-8.3)
[2024-04-01 18:12] LABS: Adenovirus PCR Not Detected (NotDetected); Bordetella parapertussis PCR Not Detected (NotDetected); Bordetella pertussis PCR Not Detected (NotDetected); Chlamydia pneumoniae PCR Not Detected (NotDetected); Coronavirus 229E PCR Not Detected (NotDetected); Coronavirus CoV-2 (COVID19)PCR Not Detected (NotDetected); Coronavirus HKU1 PCR Not Detected (NotDetected); Coronavirus NL63 PCR Not Detected (NotDetected); Coronavirus OC43PCR Not Detected (NotDetected); Human Metapneumovirus PCR Not Detected (NotDetected); Influenza A PCR Not Detected (NotDetected); Influenza B PCR Not Detected (NotDetected); Mycoplasma pneumoniae PCR Not Detected (NotDetected); Parainfluenza Virus 1 PCR Not Detected (NotDetected); Parainfluenza Virus 2 PCR Not Detected (NotDetected); Parainfluenza Virus 3 PCR Not Detected (NotDetected); Parainfluenza Virus 4 PCR Not Detected (NotDetected); Respiratory Syncytial VirusPCR Not Detected (NotDetected); Rhinovirus/Enterovirus PCR Not Detected (NotDetected)
[2024-04-01] MEDS: cefTRIAXone SODIUM 2,000 MG/50 ML BAG IV STA (18:43)
[2024-04-01] MEDS: LACTATED RINGER'S 500 ML IV ONE (19:01)
[2024-04-01] MEDS ORDERED: GLUCAGON FOR INJ 1 MG VIAL SQ PRN (19:02)
[2024-04-01] MEDS ORDERED: CARBOHYDRATES FOR HYPOGLYCEMIA PO PRN (19:02)
[2024-04-01] MEDS ORDERED: GLUCOSE 40% GEL 15 GM TUBE PO PRN (19:02)
[2024-04-01] MEDS ORDERED: DEXTROSE 50% 50 ML SYRINGE IV PRN (19:02)
[2024-04-01] MEDS ORDERED: GLUCOSE 10 TAB/TUBE PO PRN (19:02)
--- NOTE | 2024-04-01 19:02 | History & Physical Report ---
Date of Service April 01, 2024 Assessment & Plan (1) Pneumonia: Plan: Acute on chronic COPD exacerbation,? Right pneumonia ? Pneumonitis of the left midlung No leukocytosis Increase shortness of breath, wheezing, sputum production for around 3 days Patient is not requiring oxygen Continue azithromycin/Rocephin Methylprednisolone 40 mg daily Pulmonary toilet Incentive spirometry, flutter valve Continue home inhalers Initially hypotensive in the ER, BP normalized following 1 L fluid. Additional 1500 cc given to meet ideal body weight sepsis recommendations given suspected source, tachypnea, and hypotension. Blood cultures pending. Sputum culture pending (2) COPD (chronic obstructive pulmonary disease): (3) Hypothyroidism: (4) GERD (gastroesophageal reflux disease): Plan Chronic stable issues: Hypothyroidism: Continue Synthroid Hypertension: Continue losartan Hyperlipidemia: Continue rosuvastatin GERD: Continue Protonix DVT prophylaxis: Heparin Diet: DM 2/heart healthy CODE STATUS: DNR/DNI discussed with patient at bedside. History of Present Illness Primary Care Provider: Rosy Delgado MD Patient is 78-year-old female with a past medical history of pulmonary nodules, coronary artery disease, COPD, GERD, hypertension, hypothyroidism, scoliosis, pre-DM presents with general unwellness, cough, congestion of around 3 days, diarrhea for 1 day which resolved, weakness, and fatigue. Bio fire is negative. She does not have a leukocytosis. Renal function is at baseline. Troponin is not elevated. BNP is not elevated. She has a chronic mild transaminitis near baseline. Chest x-ray shows left midlung airspace opacities which combined with patient's acute respiratory symptoms are suspected to be pneumonitis/early pneumonia with concurrent COPD exacerbation. She received albuterol, azithromycin, Rocephin, methylprednisolone in the ER. Joselyn reports that she has chronic shortness of breath and a dry cough due to her COPD however she has been much more short of breath with increased cough and increased thickness of her sputum production for around 3 days. Has not noticed much wheezing. Thinks she did feel feverish around 2 days ago. No chills or night sweats. No chest pain or chest pressure. No lightheadedness dizziness syncope or presyncope. She has been taking her medications as directed. Endorses global weakness without focal weakness. Medical History: Reviewed Medications: Reviewed Surgical History: Reviewed Family history: Reviewed Allergies: Reviewed Social History: Current tobacco use 1ppw. No etoh Code Status:DNR Allergies Allergy/AdvReac Type Severity Reaction Status Date / Time epoxy resin Allergy Intermediate rash, get Verified 04/01/24 18:10 very sick Home Medications Medication Instructions Recorded Confirmed Type acetaminophen 325 mg tablet 325 mg PO Q6H PRN Pain 06/07/19 04/01/24 History cyclobenzaprine 10 mg tablet 10 mg PO TID PRN muscle spasm #90 03/11/23 04/01/24 Rx tabs octreotide,microspheres 20 mg 20 mg IM MONTHLY #1 ea 04/30/23 04/01/24 Rx intramuscular susp, extended release ipratropium 0.5 mg-albuterol 3 mg 3 ml NEB Q4 PRN sob #180 mL 05/25/23 04/01/24 Rx (2.5 mg base)/3 mL nebulization soln fluticasone fur. 100 mcg-umeclid 1 inh inhalation QAM #60 ea 07/27/23 04/01/24 Rx 62.5 mcg-vilant 25 mcg inhalat.powder (Trelegy Ellipta) magnesium oxide 400 mg PO QAM 10/08/23 04/01/24 History fluticasone propionate 50 2 spray intranasal QAM #11.1 mL 11/30/23 04/01/24 Rx mcg/actuation nasal spray,suspension (Flonase Allergy Relief) pantoprazole 40 mg tablet,delayed 40 mg PO QAM #30 tabs 11/30/23 04/01/24 Rx release oxybutynin chloride 5 mg tablet 5 mg PO BID #60 tabs 12/07/23 04/01/24 Rx rosuvastatin 40 mg tablet (Crestor) 40 mg PO HS #90 tabs 12/07/23 04/01/24 Rx hydrocodone 5 mg-acetaminophen 325 1 tab PO Q6H PRN Pain #30 tabs 01/25/24 04/01/24 Rx mg tablet losartan 25 mg tablet (Cozaar) 25 mg PO QAM #100 tabs 02/08/24 04/01/24 Rx levothyroxine 50 mcg tablet 50 mcg PO QAM #90 tabs 02/27/24 04/01/24 Rx alendronate 70 mg tablet (Fosamax) 70 mg PO WK 03/12/24 04/01/24 History albuterol sulfate 90 mcg/actuation 2 puff inhalation Q4H PRN 03/15/24 04/01/24 Rx aerosol inhaler (Ventolin HFA) Shortness Of Breath #18 grams Past Med/Surg History Problem List (Updated 03/27/24 @ 00:07 by Riky Salazar) Multiple pulmonary nodules determined by computed tomography of lung Paresthesia of right lower extremity Scoliosis of thoracolumbar spine Neuroforaminal stenosis of lumbar spine Coronary artery calcification seen on CAT scan Vitamin D deficiency Esophageal dysphagia Chronic neck and back pain Barretts esophagus (Acute) Hyperactivity of bladder (Acute) Impaired fasting glucose (Acute) Hypothyroidism (Chronic) Hypercholesteremia (Chronic) Osteoporosis GERD (gastroesophageal reflux disease) COPD (chronic obstructive pulmonary disease) (Acute) inhalers/nebulizers daily and prn 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 Scoliosis Hypertension (Chronic) Medical History Multiple pulmonary nodules determined by computed tomography of lung Paresthesia of right lower extremity Scoliosis of thoracolumbar spine 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 Hypertension Scoliosis History of stomach ulcers Anemia Cardiac 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 History of angina 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--following with PCP Surgical History History of dilatation and curettage x2 History of open reduction and internal fixation (ORIF) procedure R pinky--hardware removed History of colonoscopy last 2017 History of esophagogastroduodenoscopy (EGD) last 11/2022 History of total abdominal hysterectomy and bilateral salpingo-oophorectomy 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[facility] d/t colon cancer History of tooth extraction all teeth removed History of tonsillectomy History of bilateral cataract extraction Hx of appendectomy History of cholecystectomy Family History Son Type 1 diabetes mellitus Father Myocardial infarction Mother Aneurysm of aortic arch Sister Rheumatoid arthritis Leukemia Mantle cell lymphoma Unknown Thyroid disorder Other No family history of adverse response to anesthesia Denies family history of Ovarian cancer Prostate cancer Breast cancer Colorectal cancer Social History Smoking Status: Current every day smoker Tobacco Type: Cigarettes Age Started Using Tobacco: 20; packs per day: 0.25; Cigarettes Per Day: 3-4 a day (advised on policy); Second Hand Exposure: Yes (parents smoked); Do You Dip or Chew Tobacco: No; Hx Alcohol Use: No Hx Substance Use: No Preferred Language: Guatemalan Communication Ability: Effective Visual Impairment: No Limitations Hearing Ability: Normal [place] Miner Required: No Beliefs That Will Affect Care: None marital status: Single Current Living Situation: Alone Current Living Situation Comment: has aide come in current occupational status: retired 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 NAD. Cooperative. HEENT: Atraumatic, normocephalic. Pulm: Scattered crackle in the right middle, right lower, and left lower lung plascencia. No rales. Trace end expiratory wheeze symmetrical chest rise. No increased work of breathing. No respiratory distress. Cardiac: RRR, -mrg. Radial pulses intact and symmetrical. Abdominal: Nontender, nondistended, soft. BS present. Extremities: Warm and dry Results & Data Results & Data Vital Signs (Past 12 Hours) Vital Signs Temp Pulse Pulse Resp BP BP Pulse Ox 04/01/24 18:55 87 22 123/79 95 04/01/24 18:01 84 22 123/79 96 04/01/24 17:33 82 04/01/24 17:05 96 04/01/24 16:56 36.9 C 87 19 91/56 L 96 O2 Del Method 04/01/24 18:55 Room Air 04/01/24 18:01 04/01/24 17:33 04/01/24 17:05 Room Air 04/01/24 16:56 Room Air Code Status & VTE Plan VTE Prophylaxis Plan VTE Prophylaxis will be ordered: Yes PG Care Time/CCT Total # of Minutes Spent Total Time Spent with Patient: Total time spent is greater than 50% in coordination of care (as documented) at patient's floor/unit and/or counseling patient: Coding Level of Care Code 41972 INT INP/OBS CARE MIN Diagnoses Pneumonia J18.9 Pneumonia type: due to unspecified organism COPD (chronic obstructive pulmonary disease) J44.9 COPD type: unspecified COPD Hypothyroidism E03.9 GERD (gastroesophageal reflux disease) K21.9 (1) Pneumonia Pneumonia type: due to unspecified organism (2) COPD (chronic obstructive pulmonary disease) COPD type: unspecified COPD Qualified Code(s): J44.9 - Chronic obstructive pulmonary disease, unspecified
[2024-04-01] MEDS: PLASMA-LYTE A 500 ML IV ONE (19:18)
[2024-04-01] MEDS: AZITHROMYCIN 500 MG in DEXTROSE 5% 250 ML IV ONE (19:59)
[2024-04-01] MEDS: INSULIN ASPART PER UNIT CHARGE SC SCH (20:45)
[2024-04-01] MEDS ORDERED: ALBUT/IPRATROP 3MG/0.5MG NEB 3 ML VIAL NEB PRN ×2 (21:26)
[2024-04-01] MEDS ORDERED: ACETAMINOPHEN 325 MG TAB PO PRN (21:26)
[2024-04-01] MEDS ORDERED: HYDROCODONE/ACETAMOPHEN 5/325MG TAB PO PRN (21:26)
[2024-04-01] MEDS ORDERED: ALBUTEROL HFA 8 GM INHALER INH PRN (21:26)
[2024-04-01] MEDS ORDERED: CYCLOBENZAPRINE HCL 10 MG TAB PO PRN (21:26)
[2024-04-01] MEDS: oxyBUTYnin chloride 5 MG TAB PO SCH (21:55)
[2024-04-01] MEDS: ROSUVASTATIN CALCIUM 20 MG TAB PO SCH (21:55)
[2024-04-01] MEDS: HEPARIN SOD 5,000 UNIT/0.5 ML VIAL SQ SCH (21:55)
[2024-04-02] MEDS: LEVOTHYROXINE SODIUM 50 MCG TABLET PO SCH (05:52)
[2024-04-02 07:20] LABS: Basophils # (auto) 0.01 K/uL (0.00-0.20); Basophils % (auto) 0.3 %; Hematocrit (blood only) 30.2 % (37.0-47.0); Hemoglobin 10.5 g/dl (12.0-16.0); Immature Granulocytes # (auto) 0.01 K/uL (0.01-0.20); Immature Granulocytes % (auto) 0.3 %; Lymphocytes # (auto) 0.73 K/uL (1.20-3.40); Lymphocytes % (auto) 19.9 %; Mean Corpuscular Hemoglobin 31.3 pg (25.0-34.0); Mean Corpuscular Hgb Conc 34.8 g/dL (32.0-36.0); Mean Corpuscular Volume 90.1 fL (80.0-100.0); Mean Platelet Volume 10.5 fL (9.4-12.4); Monocytes # (auto) 0.11 K/uL (0.11-0.59); Neutrophils % (auto) 76.5 %; Platelet Count 130 K/uL (130-400); RDW Standard Deviation 46.2 fL (36.4-46.3); Red Blood Count 3.35 M/uL (4.20-5.40); White Blood Count 3.66 K/ul (4.8-10.8)
[2024-04-02 07:45] LABS: BUN Creatinine Ratio 10.4 (10-20); Calcium 7.9 mg/dl (8.6-10.3); Creatinine Clr Calc Pharmacy 35.7 ml/min; Est GFR (African American) 66.6 ml/min; Est GFR (Non-African American) 57.4 ml/min; Magnesium 1.8 mg/dl (1.7-2.4); Potassium 3.6 mmol/L (3.5-5.1)
[2024-04-02] MEDS ORDERED: CEFEPIME 1,000 MG in SYRINGE 0 ML IV SCH (08:15)
[2024-04-02] MEDS ORDERED: methylPREDNISolone 10 mg/mL (For Ped Dose < 7mg) IV SCH (08:15)
[2024-04-02] MEDS: PANTOprazole 40 MG TAB PO SCH (08:27)
[2024-04-02] MEDS: UMECLIDINIUM/VILANTEROL 62.5/25MCG 7 PUFFS/INHALER INH SCH (08:28)
[2024-04-02] MEDS: FLUTICASONE FUROATE 100MCG 14 PUFFS/INHALER INH SCH (08:28)
[2024-04-02] MEDS: CEFEPIME 2,000 MG in SYRINGE 0 ML IV SCH (08:36)
[2024-04-02] MEDS: methylPREDNISolone 40 MG in SYRINGE 0 ML IV SCH (08:36)
[2024-04-02] MEDS ORDERED: predniSONE 20 MG TAB PO SCH (09:00)
[2024-04-02] MEDS: ALBUT/IPRATROP 3MG/0.5MG NEB 3 ML VIAL NEB SCH (09:15)
--- NOTE | 2024-04-02 13:41 | Hospitalist Progress Note ---
Date of Service April 02, 2024 Assessment & Plan (1) Pneumonia: Plan: No evidence of pneumonia seen on admission chest x-ray. (2) Acute bronchitis: Plan: Obtain sputum for culture and sensitivity. Antibiotics switched to cefepime. (3) COPD (chronic obstructive pulmonary disease): Plan: Acute exacerbation. Continue parenteral steroid therapy. Scheduled DuoNebs (4) Hypothyroidism: Plan: Stable. Continue current thyroid replacement therapy Plan Anticipate discharge to home tomorrow, April 03, on an oral antibiotic and prednisone tapering dose. Admission and Anticipated Discharge Date Admission Date: April 01, 2024 Subjective Alert and oriented. No distress. I see no evidence of pneumonia on chest x-ray on admission. She does have a productive cough though and probably has acute bronchitis. Sputum culture has been requested. Antibiotic switched to cefepime. Continue Solu-Medrol 40 mg IV every 8 hours along with scheduled DuoNebs. She is on room air. She probably will go home tomorrow, April 03 Review of Systems 2 Review of Systems: Constitutional-no fever or chills ENT-no blurred vision, no double vision, no epistaxis, no sore throat Respiratory-productive cough. Wheezing on admission. No hemoptysis Cardiac-no palpitations, no chest pain, no syncope GI-no nausea, vomiting, diarrhea, melena, hematochezia -no urinary retention, no urinary incontinence, no dysuria, no hematuria Musculoskeletal-no joint pain, no muscle tenderness Skin-no bruising, no rashes, no pruritus Neuro-no isolated weakness, no paresthesia, no weakness Psych-no depression, no anxiety Physical Exam 2 Physical Exam: General-alert and oriented x3, no fever, no chills HEENT-head atraumatic and normocephalic, pupils equal and reactive to light, extraocular muscles intact Neck-no lymphadenopathy or thyromegaly, trachea midline Chest-diminished breath sounds bilaterally. Midline rhonchi. End expiratory wheezes with forced expiration. Cardiac-regular rate and rhythm, normal S1 and S2 Abdomen-normal bowel sounds, no hepatosplenomegaly Extremities-no cyanosis, clubbing, or edema Neuro-cranial nerves II through XII intact, motor and sensory function within normal limits, strength symmetrical, no focal deficits Psych-normal affect, normal mood Results & Data Results & Data Vital Signs (Past 12 Hours) Vital Signs Temp Pulse Pulse Resp BP Pulse Ox O2 Del Method 04/02/24 11:02 79 18 93 Room Air 04/02/24 10:42 Nasal Cannula 04/02/24 09:18 74 18 93 Room Air 04/02/24 07:30 36.8 C 64 20 108/68 96 Room Air O2 Flow Rate 04/02/24 11:02 04/02/24 10:42 2 04/02/24 09:18 04/02/24 07:30 Laboratory Results 04/02/24 06:50 04/02/24 06:50 PG Care Time/CCT Total # of Minutes Spent Total Time Spent with Patient: Total time spent is greater than 50% in coordination of care (as documented) at patient's floor/unit and/or counseling patient: Coding Level of Care Code 87037 SUB INP/OBS CARE 3/50MIN Diagnoses Pneumonia J18.9 Pneumonia type: due to unspecified organism Acute bronchitis J20.9 COPD (chronic obstructive pulmonary disease) J44.9 COPD type: unspecified COPD Hypothyroidism E03.9 (1) Pneumonia Pneumonia type: due to unspecified organism (3) COPD (chronic obstructive pulmonary disease) COPD type: unspecified COPD Qualified Code(s): J44.9 - Chronic obstructive pulmonary disease, unspecified
[2024-04-02] MEDS ORDERED: AZITHROMYCIN 250 MG in DEXTROSE 5% 250 ML IV SCH (19:00)
[2024-04-02] MEDS ORDERED: cefTRIAXone SODIUM 2,000 MG/50 ML BAG IV SCH (19:00)
[2024-04-02] MEDS: MELATONIN 3 MG TAB PO PRN (20:07)
--- NOTE | 2024-04-02 21:20 | Electrocardiogram Report ---
Test Reason : Blood Pressure : / mmHG Vent. Rate : 087 BPM Atrial Rate : 087 BPM P-R Int : 114 ms QRS Dur : 088 ms QT Int : 364 ms P-R-T Axes : 073 075 074 degrees QTc Int : 438 ms Normal sinus rhythm Normal ECG When compared with ECG of 24-DEC-2022 11:07, No significant change Confirmed by Tee Aparicio ([id number]) on 04/02/2024 9:19:49 PM Referred By: REFERRED SELF Confirmed By:Tee Aparicio
[2024-04-03 07:17] LABS: Hemoglobin 10.4 g/dl (12.0-16.0); Immature Granulocytes # (auto) 0.02 K/uL (0.01-0.20); Immature Granulocytes % (auto) 0.3 %; Lymphocytes # (auto) 0.76 K/uL (1.20-3.40); Mean Corpuscular Hemoglobin 30.4 pg (25.0-34.0); Mean Corpuscular Hgb Conc 33.5 g/dL (32.0-36.0); Mean Corpuscular Volume 90.6 fL (80.0-100.0); Mean Platelet Volume 10.3 fL (9.4-12.4); Monocytes % (auto) 4.7 %; Neutrophils # (auto) 5.25 K/uL (1.40-6.50); Platelet Count 141 K/uL (130-400); RDW Standard Deviation 46.5 fL (36.4-46.3); Red Blood Count 3.42 M/uL (4.20-5.40); White Blood Count 6.33 K/ul (4.8-10.8)
[2024-04-03 07:23] LABS: Calcium 8.2 mg/dl (8.6-10.3); Creatinine Clr Calc Pharmacy 35.4 ml/min; Est GFR (African American) 63.4 ml/min; Est GFR (Non-African American) 54.7 ml/min; Potassium 3.9 mmol/L (3.5-5.1)
--- NOTE | 2024-04-03 10:58 | Discharge Summary ---
Date of Service April 03, 2024 Admission HPI Per Admitting Provider Patient is 78-year-old female with a past medical history of pulmonary nodules, coronary artery disease, COPD, GERD, hypertension, hypothyroidism, scoliosis, pre-DM presents with general unwellness, cough, congestion of around 3 days, diarrhea for 1 day which resolved, weakness, and fatigue. Bio fire is negative. She does not have a leukocytosis. Renal function is at baseline. Troponin is not elevated. BNP is not elevated. She has a chronic mild transaminitis near baseline. Chest x-ray shows left midlung airspace opacities which combined with patient's acute respiratory symptoms are suspected to be pneumonitis/early pneumonia with concurrent COPD exacerbation. She received albuterol, azithromycin, Rocephin, methylprednisolone in the ER. Joselyn reports that she has chronic shortness of breath and a dry cough due to her COPD however she has been much more short of breath with increased cough and increased thickness of her sputum production for around 3 days. Has not noticed much wheezing. Thinks she did feel feverish around 2 days ago. No chills or night sweats. No chest pain or chest pressure. No lightheadedness dizziness syncope or presyncope. She has been taking her medications as di rected. Endorses global weakness without focal weakness. Medical History: Reviewed Medications: Reviewed Surgical History: Reviewed Family history: Reviewed Allergies: Reviewed Social History: Current tobacco use 1ppw. No etoh Code Status:DNR Principal Diagnosis Acute bronchitis, acute exacerbation COPD Discharge Exam General-alert and oriented x3, no fever, no chills HEENT-head atraumatic and normocephalic, pupils equal and reactive to light, extraocular muscles intact Neck-no lymphadenopathy or thyromegaly, trachea midline Chest-diminished breath sounds bilaterally. Midline rhonchi. End expiratory wheezes with forced expiration have nearly resolved since admission. Cardiac-regular rate and rhythm, normal S1 and S2 Abdomen-normal bowel sounds, no hepatosplenomegaly Extremities-no cyanosis, clubbing, or edema Neuro-cranial nerves II through XII intact, motor and sensory function within normal limits, strength symmetrical, no focal deficits Psych-normal affect, normal mood Discharge Data Allergies Allergy/AdvReac Type Severity Reaction Status Date / Time epoxy resin Allergy Intermediate rash, get Verified 04/01/24 18:10 very sick Consultations 04/01/24 18:30 ED Decision to Admit Stat Hospital Course (1) Pneumonia: No evidence of pneumonia seen on admission chest x-ray. (2) Acute bronchitis: Antibiotics switched to cefepime while hospitalized. She will be discharged home on Ceftin. Final sputum culture results pending. (3) COPD (chronic obstructive pulmonary disease): Acute exacerbation. Treated while hospitalized with parenteral steroid therapy and scheduled DuoNebs. Much improved. Home on a prednisone tapering dose (4) Hypothyroidism: Stable. Continue current thyroid replacement therapy Plan Home today, April 03. Total Time Total Time Spent Total Time Spent (In Minutes): 45 minutes Discharge Plan Discharge Items Patient Disposition: Home - Self-Care Reason For Visit: PNA, COPD Discharge Diagnosis: Acute bronchitis, acute exacerbation COPD Activity: Resume your previous activity Non-emergency contact: Primary Care Provider Call non-emergency contact if: you have any medication questions and your symptoms worsen Follow-up/Referrals: Rosy Delgado MD [Primary Care Provider] - Diet: Regular Addtl Attending Provider Instructions: Take prednisone in a tapering dose fashion as directed. Take Ceftin antibiotic twice daily for 5 more days Pending Studies at Discharge: No Stand-Alone Forms: [facility] [employer], Smoking Cessation Medications and DC Order Prescriptions: New prednisone 10 mg tablet See Rx Instructions .ROUTE .COMPLEX Qty: 12 0RF Rx Instructions: 10 mg orally 3 times a day for 2 days, then 10 mg twice a day for 2 days, t hen 10 mg once a day for 2 days, then stop cefdinir 300 mg capsule 300 mg PO BID 5 Days Qty: 10 0RF Continued cyclobenzaprine 10 mg tablet 10 mg PO TID PRN (Reason: muscle spasm) Qty: 90 6RF octreotide,microspheres 20 mg suspension,extended rel recon 20 mg IM MONTHLY Qty: 1 0RF Rx Instructions: DUE 03/15/24 ipratropium-albuterol 0.5 mg-3 mg(2.5 mg base)/3 mL solution for nebulization 3 ml NEB Q4 PRN (Reason: sob) Qty: 180 5RF Trelegy Ellipta 100-62.5-25 mcg blister with device 1 inh INH QAM Qty: 60 5RF fluticasone propionate [Flonase Allergy Relief] 50 mcg/actuation spray,suspension 2 spray INTRANASAL QAM Qty: 11.1 6RF pantoprazole 40 mg tablet,delayed release (DR/EC) 40 mg PO QAM Qty: 30 5RF oxybutynin chloride 5 mg tablet 5 mg PO BID Qty: 60 5RF rosuvastatin [Crestor] 40 mg tablet 40 mg PO HS Qty: 90 3RF hydrocodone-acetaminophen 5-325 mg tablet 1 tab PO Q6H PRN (Reason: Pain) Qty: 30 0RF losartan [Cozaar] 25 mg tablet 25 mg PO QAM Qty: 100 3RF levothyroxine 50 mcg tablet 50 mcg PO QAM Qty: 90 3RF albuterol sulfate [Ventolin HFA] 90 mcg/actuation HFA aerosol inhaler 2 puff INHALATION Q4H PRN (Reason: Shortness Of Breath) Qty: 18 3RF acetaminophen 325 mg tablet 325 mg PO Q6H PRN (Reason: Pain) magnesium oxide 400 mg magnesium Tablet 400 mg PO QAM alendronate [Fosamax] 70 mg tablet 70 mg PO WK Rx Instructions: WEDNESDAY Discharge Orders: Discharge Order (Routine); Ordered 04/03/24 Ordered By: Ruslan Pizano Admission Data Admit Date/Time: 04/01/24 19:00 Attending Provider: Ruslan Pizano Admit Provider: Yordan Sawyer Primary Care Provider: Rosy Delgado Other Providers: Yordan Sawyer Coding Level of Care Code 04820 INP/OBS DISCH >30 MIN Diagnoses Pneumonia J18.9 Pneumonia type: due to unspecified organism Acute bronchitis J20.9 COPD (chronic obstructive pulmonary disease) J44.9 COPD type: unspecified COPD Hypothyroidism E03.9
== END 2024-04-03 13:35 | disposition home or self-care (01) | DRG 194 ==
LOC: SUATTDRO → ED 16:54 → INTOOBSV 19:00 → SUATTDRO 19:00 → 3W 19:00

== ENCOUNTER 2024-09-11 02:15 | Inpatient (IN) ==
--- NOTE | 2024-09-11 02:25 | Emergency Department Note ---
History of Present Illness General Chief complaint: Fall Stated complaint: Fall, Leg Weakness, Skin Tear L Forearm Time Seen by Provider: 09/11/24 02:19 History of Present Illness This 78-year-old female presents ER complaining of generalized weakness that has gotten progressively worse over the past few days. Patient denies chest pain, dyspnea, fever, chills, cough, congestion, abdominal pain, back pain, urinary symptoms. Patient states she did not even feel like eating dinner last night. Tetanus was within 10 years. Home Medications Medication Instructions Recorded Confirmed Type acetaminophen 325 mg tablet 325 mg PO Q6H PRN Pain 06/07/19 09/04/24 History cyclobenzaprine 10 mg tablet 10 mg PO TID PRN muscle spasm #90 03/11/23 09/04/24 Rx tabs octreotide,microspheres 20 mg 20 mg IM MONTHLY #1 ea 04/30/23 09/04/24 Rx intramuscular susp, extended release ipratropium 0.5 mg-albuterol 3 mg 3 ml NEB Q4 PRN sob #180 mL 05/25/23 09/04/24 Rx (2.5 mg base)/3 mL nebulization soln magnesium oxide 400 mg PO QAM 10/08/23 09/04/24 History fluticasone propionate 50 2 spray intranasal QAM #11.1 mL 11/30/23 09/04/24 Rx mcg/actuation nasal spray,suspension (Flonase Allergy Relief) rosuvastatin 40 mg tablet (Crestor) 40 mg PO HS #90 tabs 12/07/23 09/04/24 Rx losartan 25 mg tablet (Cozaar) 25 mg PO QAM #100 tabs 02/08/24 09/04/24 Rx alendronate 70 mg tablet (Fosamax) 70 mg PO WK 03/12/24 09/04/24 History albuterol sulfate 90 mcg/actuation 2 puff inhalation Q4H PRN 03/15/24 09/04/24 Rx aerosol inhaler (Ventolin HFA) Shortness Of Breath #18 grams pantoprazole 40 mg tablet,delayed 40 mg PO QAM #30 tabs 05/29/24 09/04/24 Rx release oxybutynin chloride 5 mg tablet 5 mg PO BID #180 tabs 06/08/24 09/04/24 Rx fluticasone fur. 100 mcg-umeclid 1 inh inhalation QAM #60 ea 07/19/24 09/04/24 Rx 62.5 mcg-vilant 25 mcg inhalat.powder (Trelegy Ellipta) hydrocodone 5 mg-acetaminophen 325 1 tab PO Q6H PRN Pain #30 tabs 07/25/24 09/04/24 Rx mg tablet nebulizer accessories (EZ Twist #10 ea 07/26/24 09/04/24 Rx Tubing misc) bupropion HCl 150 mg 24 hr tablet, 150 mg PO QAM #30 tabs 09/01/24 09/04/24 Rx extended release (Wellbutrin XL) levothyroxine 75 mcg tablet 75 mcg PO DAILY 90 days #90 tabs 09/06/24 09/06/24 Rx Allergies Allergy/AdvReac Type Severity Reaction Status Date / Time epoxy resin Allergy Intermediate rash, get Verified 09/04/24 13:53 very sick Past Med/Surg History Problem List (Updated 09/11/24 @ 06:18 by Duke Elkins MD) Status post fall 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 Moderate dehydration Acute dehydration (Acute) Skin tear of left upper extremity (Acute) Generalized weakness (Acute) Cigarette smoker Hypothyroidism Lung nodule Sacroiliitis Left upper lobe pulmonary nodule Transaminitis (Acute) 04/01/24 Multiple pulmonary nodules determined by computed tomography of lung Paresthesia of right lower extremity Scoliosis of thoracolumbar spine Neuroforaminal stenosis of lumbar spine Coronary artery calcification seen on CAT scan Vitamin D deficiency Esophageal dysphagia Chronic neck and back pain Barretts esophagus (Acute) Hyperactivity of bladder (Acute) Impaired fasting glucose (Acute) 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 Hypertension (Chronic) Hypercholesteremia (Chronic) Scoliosis Osteoporosis COPD (chronic obstructive pulmonary disease) (Acute) inhalers/nebulizers daily and prn Medical History COPD (chronic obstructive pulmonary disease) inhalers/nebulizers daily and prn Osteoporosis Hypercholesteremia HTN (hypertension) 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 Barretts esophagus Coronary artery calcification seen on CAT scan Scoliosis of thoracolumbar spine Multiple pulmonary nodules GERD (gastroesophageal reflux disease) History of stomach ulcers Anemia pt not aware 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 History of angina Emphysema lung 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 Surgical History History of dilatation and curettage x2 History of open reduction and internal fixation (ORIF) procedure R pinky--hardware removed History of colonoscopy last 2017 History of esophagogastroduodenoscopy (EGD) last 11/2022 History of total abdominal hysterectomy and bilateral salpingo-oophorectomy 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[facility] d/t colon cancer History of tooth extraction all teeth removed History of tonsillectomy History of bilateral cataract extraction Hx of appendectomy History of cholecystectomy Family History Son Type 1 diabetes mellitus Father Myocardial infarction Mother Aneurysm of aortic arch Sister Rheumatoid arthritis Leukemia Mantle cell lymphoma Unknown Thyroid disorder Sister Cancer Other No family history of adverse response to anesthesia Denies family history of Ovarian cancer Prostate cancer Breast cancer Colorectal cancer Social History Smoking Status: Current every day smoker Tobacco Type: Cigarettes Age Started Using Tobacco: 20; packs per day: 0.25; Cigarettes Per Day: 3-4 a day (advised on policy); Second Hand Exposure: No; Do You Dip or Chew Tobacco: No; Tobacco Cessation Education Requested by Patient: No Hx Alcohol Use: No Hx Substance Use: No Preferred Language: Vietnamese Communication Ability: Effective Visual Impairment: No Limitations Hearing Ability: Normal All Terrain Vehicle Technician Required: No Beliefs That Will Affect Care: None marital status: Single Current Living Situation: Alone Current Living Situation Comment: has aide come in current occupational status: retired 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, 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) Other Information That Helps Us Care for You: No Feels Safe at Home: Yes Safety Concerns: Feels Safe At This Time Childhood Exposure to Second-Hand Smoke: Yes Diet: regular caffeine: No Dental Care, Regularly: No Physical Activity Frequency: Daily Seatbelt Use: always Sunscreen Use: Yes Assistive Devices: Cane and Glasses Review of Systems A total of 10 systems reviewed and were otherwise negative Physical Exam Vital Signs Vital Signs - 24 hr 09/11/24 02:20 09/11/24 02:25 09/11/24 02:40 Temperature 37.3 C Temperature Source Oral Pulse Rate - Lying 76 Pulse Rate - Sitting 84 Pulse Rate - Standing 100 H Pulse Rate 77 78 Pulse Rate [Apical] Respiratory Rate 22 Respiratory Effort / Characteristics Non-Labored Respiratory Depth Normal Respiratory Pattern Regular Blood Pressure - Lying 138/90 Blood Pressure - Sitting 136/75 Blood Pressure- Standing 87/58 L Blood Pressure 149/85 H Blood Pressure [Right Arm] Blood Pressure Mean 106 Blood Pressure Mean [Right Arm] Pulse Oximetry 91 Oxygen Delivery Method Room Air Sepsis Recent Fever Within 48 Hours No Sepsis New/Unexplained Change in Mental Status No Sepsis Action Taken by Nursing No Action Required 09/11/24 02:40 09/11/24 03:00 09/11/24 04:06 Temperature Temperature Source Pulse Rate - Lying Pulse Rate - Sitting Pulse Rate - Standing Pulse Rate Pulse Rate [Apical] 70 73 Respiratory Rate 20 22 Respiratory Effort / Characteristics Respiratory Depth Normal Respiratory Pattern Blood Pressure - Lying Blood Pressure - Sitting Blood Pressure- Standing Blood Pressure Blood Pressure [Right Arm] 149/84 H 129/76 Blood Pressure Mean Blood Pressure Mean [Right Arm] 105 93 Pulse Oximetry 91 92 93 Oxygen Delivery Method Room Air Room Air Room Air Sepsis Recent Fever Within 48 Hours Sepsis New/Unexplained Change in Mental Status Sepsis Action Taken by Nursing VITALS: Vitals are noted on the nurse's note and reviewed by myself. Vital signs stable. GENERAL: Pleasant elderly female following commands, in no acute distress, nondiaphoretic, well-developed well-nourished. SKIN: Skin tear to left forearm, the rest of The skin was without rashes, erythema, edema, or bruising. There is no tenting of the skin. Capillary reflex less than 2 seconds. HEAD: Normocephalic atraumatic. EARS: External auditory canals clear EYES: Pupils equal round and reactive to light and accommodation. Conjunctivae without injection, sclerae without icterus. Extraocular movements intact. NOSE: Patent, no discharge. MOUTH: Mucous membranes moist. Pharynx without erythema or exudate. Uvula midline. Airway patent. Tongue does not deviate. NECK: Supple without nuchal rigidity. No lymphadenopathy. No thyromegaly. Cervical spine is nontender. No JVD. HEART: Regular rate and rhythm LUNGS: Clear to auscultation bilaterally without wheezes, rales or rhonchi. No retractions or accessory muscle use. ABDOMEN: Positive bowel sounds x 4. Normal tympanic percussion. Soft, nontender, without masses or organomegaly. York sign negative. No guarding or rebound tenderness. No CVA tenderness MUSCULOSKELETAL: No muscle atrophy, erythema, or edema noted. 5 out of 5 strength throughout. Patient is moving all extremities. NEURO: Patient was alert and oriented to person place and time. Normal sensation to light and sharp touch. No focal neurological deficits. Course Administered Medications Bupropion HCl (Bupropion Xl 150 Mg Tabcr) 150 mg PO QAM [facility] Stop: 10/11/24 08:59 Last Admin: 09/11/24 08:22 Dose: 150 mg Documented By: ANTHONY Fluticasone Furoate (Fluticasone Furoate 100mcg 14 Puffs/Inhaler) 1 puffs INH DAILY [facility] Stop: 10/11/24 08:59 Last Admin: 09/11/24 08:22 Dose: 1 puffs Documented By: ANTHONY Sodium Chloride (Nss) 1,000 mls @ 80 mls/hr IV .[id number] [facility] Stop: 09/11/24 17:14 Last Admin: 09/11/24 06:18 Dose: 80 mls/hr Documented By: JOANA Levothyroxine Sodium (Levothyroxine Sodium 75 Mcg Tablet) 75 mcg PO DAILYBB [facility] Stop: 10/11/24 06:29 Last Admin: 09/11/24 06:18 Dose: 75 mcg Documented By: JOANA Magnesium Oxide (Magnesium Oxide 400 Mg Tab) 400 mg PO QAM [facility] Stop: 10/11/24 08:59 Last Admin: 09/11/24 08:22 Dose: 400 mg Documented By: ANTHONY Pantoprazole Sodium (Pantoprazole 40 Mg Tab) 40 mg PO QAM [facility] Stop: 10/11/24 08:59 Last Admin: 09/11/24 08:22 Dose: 40 mg Documented By: ANTHONY Umeclidinium/Vilanterol (Umeclidinium/Vilanterol 62.5/25mcg 7 Puffs/Inhaler) 1 puffs INH DAILY [facility] Stop: 10/11/24 08:59 Last Admin: 09/11/24 08:22 Dose: 1 puffs Documented By: ANTHONY Discontinued Medications Sodium Chloride (Nss) 500 mls @ 999 mls/hr IV .Q31M ONE Stop: 09/11/24 03:16 Last Infusion: 09/11/24 03:22 Dose: Infused Documented By: Admin: 09/11/24 02:51 Dose: 999 mls/hr Documented By: ROZINA Medical Decision Making Medical Records Attestation: I reviewed the patient's medical records. Home Medications Current Medication List: was personally reviewed by Laboratory Data Attestation: I reviewed the patient's lab results. 09/11/24 02:29 09/11/24 02:29 Lab Results 09/11/24 09/11/24 Range/Units 02:29 02:40 WBC 6.46 (4.8-10.8) K/ul RBC 4.62 (4.20-5.40) M/uL Hgb 14.6 (12.0-16.0) g/dl Hct 43.0 (37.0-47.0) % MCV 93.1 (80.0-100.0) fL MCH 31.6 (25.0-34.0) pg MCHC 34.0 (32.0-36.0) g/dL RDW Std Deviation 46.6 H (36.4-46.3) fL RDW Coeff of Nichole 13.8 (11.5-14.5) % Plt Count 134 (130-400) K/uL MPV 10.1 (9.4-12.4) fL Immature Gran % (Auto) 0.2 % Neut % (Auto) 73.3 % Lymph % (Auto) 18.3 % [place] % (Auto) 6.8 % Eos % (Auto) 1.2 % Baso % (Auto) 0.2 % Neut # (Auto) 4.74 (1.40-6.50) K/uL Lymph # (Auto) 1.18 L (1.20-3.40) K/uL [place] # (Auto) 0.44 (0.11-0.59) K/uL Eos # (Auto) 0.08 (0.00-0.50) K/uL Baso # (Auto) 0.01 (0.00-0.20) K/uL Immature Gran # (Auto) 0.01 (0.01-0.20) K/uL Sodium 134 L (136-145) mmol/L Potassium 3.8 (3.5-5.1) mmol/L Chloride 97 L (98-107) mmol/L Carbon Dioxide 28 (21-32) mmol/L Anion Gap 9 (3-11) BUN 15 (6-23) mg/dl Creatinine 0.90 (0.6-1.2) mg/dl Est Cr Clr Drug Dosing 41.2 ml/min eGFR 66.26 BUN/Creatinine Ratio 16.7 (10-20) Glucose 108 H (70-99(Fasting)) mg/dl Calcium 9.8 (8.6-10.3) mg/dl Magnesium 2.0 (1.7-2.4) mg/dl Total Bilirubin 1.4 H (0.2-1.0) mg/dl AST 40 H (13-39) U/L ALT 41 (7-52) U/L Alkaline Phosphatase 91 (34-104) U/L Total Creatine Kinase 48 (26-192) U/L Troponin I High Sens 8.1 (0-14) pg/ml Total Protein 7.7 (6.0-8.3) gm/dl Albumin 4.1 (3.4-5.0) gm/dl Globulin 3.6 (2.5-4.0) gm/dl Albumin/Globulin Ratio 1.1 (0.9-2) TSH 15.189 H (0.300-4.500) uIu/ml Free T4 0.80 (0.61-1.60) ng/dl Urine Color Yellow Urine Appearance Cloudy A (Clear) Urine pH 7.0 (4.5-7.5) Ur Specific [place] 1.014 (1.000-1.030) Urine Protein 1+ H (Negative) Urine Glucose (UA) Negative (Negative) Urine Ketones Negative (Negative) Urine Blood Negative (Negative) Urine Nitrite Negative (Negative) Urine Bilirubin Negative (Negative) Urine Urobilinogen Negative (Negative) Ur Leukocyte Esterase Negative (Negative) Urine WBC (Auto) 0-5 (0-5) /hpf Urine RBC (Auto) 0-2 (0-2) /hpf U Hyaline Cast (Auto) 0-2 (0-2) /lpf U Epithel Cells (Auto) 0-2 (0-2) /hpf Urine Bacteria (Auto) None Seen (None Seen) Adenovirus (PCR) Not Detected (NotDetected) B. pertussis DNA (PCR) Not Detected (NotDetected) B.parapertussis DNA PCR Not Detected (NotDetected) C. pneumoniae DNA (PCR) Not Detected (NotDetected) Coronavirus OC43 (PCR) Not Detected (NotDetected) Coronavirus HKU1 (PCR) Not Detected (NotDetected) Coronavirus 229E (PCR) Not Detected (NotDetected) SARS-CoV-2 (PCR) Not Detected (NotDetected) Coronavirus NL63 (PCR) Not Detected (NotDetected) Human Metapneumovir PCR Not Detected (NotDetected) Influenza Type A (PCR) Not Detected (NotDetected) Influenza Type B (PCR) Not Detected (NotDetected) M. pneumoniae (PCR) Not Detected (NotDetected) Parainfluenza 1 (PCR) Not Detected (NotDetected) Parainfluenza 2 (PCR) Not Detected (NotDetected) Parainfluenza 3 (PCR) Not Detected (NotDetected) Parainfluenza 4 (PCR) Not Detected (NotDetected) RSV (PCR) Not Detected (NotDetected) Entero/Rhino (PCR) Not Detected (NotDetected) Imaging Data Attestation: I personally reviewed and interpreted this imaging study as follows: Radiologist's Impression: Chest X-Ray 09/11/24 02:20 EXAM: XR chest 1V portable CLINICAL HISTORY: GENERALIZED WEAKNESS F TECHNIQUE: X-ray image of the chest is obtained in AP portable projection. COMPARISON: Radiograph dated 07/07/2024. FINDINGS: Pulmonary Parenchyma: Interval improvement of previously seen patchy airspace changes in the left lung and retrocardiac region. Emphysematous changes and chronic interstitial thickening is seen. No evidence of consolidation, collapse, or focal opacities. No pulmonary nodules are identified. No evidence of pleural effusion or pleural thickening. Heart and Mediastinum: Heart size and shape are normal. No mediastinal widening or masses. No hilar or mediastinal lymphadenopathy. Bony Thorax: Stable dextroscoliotic deformity. Old fracture of left 6th and 7th ribs. Soft Tissues: Soft tissues overlying the chest wall are unremarkable. IMPRESSION: 1. Interval improvement of previously seen patchy airspace changes in the left lung and retrocardiac region. 2. Emphysematous changes and chronic interstitial thickening, stable. 3. Stable dextroscoliotic deformity, with old fracture of left 6th and 7th ribs. Electronically signed by Sunita Carranza 09-11-2024 03:31 AM MDM Narrative Prior records/ancillary studies reviewed and summarized above. Nursing notes reviewed. Additional history obtained from EMS. The patient's history was concerning for generalized weakness. Differential diagnosis: Etiologies such as metabolic, infection, hypo/hyperglycemia, electrolyte abnormalities, cardiac sources, intracerebral event, toxicologic, neurologic, as well as others were entertained. Physical examination: As above. ER treatment provided: IV Lock An order was placed for continuous cardiac monitoring. The monitor shows a rate of 60-100 with a sinus rhythm per my interpretation. P.o. fluids, IV fluids wound care by nursing On reassessment the patient felt better. Diagnostics interpretation by me: ECG: Ordered for weakness EKG: Normal sinus, normal intervals, poor baseline, no acute ST-T wave changes. Impression normal sinus rhythm independently interpreted by myself Positive orthostatics The labs Independently Interpreted by myself revealed negative troponin Negative urine No worrisome leukocytosis, stable H&H Slightly elevated TSH and T4 is normal Imaging studies: Chest x-ray with no acute consolidation, pneumothorax or free air per my independent interpretation Consultation: A consultation was placed with the hospitalist. The case was discussed and diagnostics were reviewed. The patient was evaluated in the ER for further treatment. Exam and history seem consistent with generalized weakness most likely from dehydration. Orthostatics are positive. Patient was hydrated as above. Patient was too weak to walk. She did not feel comfortable going home. Medicine was consulted and the case was discussed. She will be admitted to the medical service. Patient is agreeable. By the evaluation outlined above emergent etiologies such as infection, electrolyte abnormalities, cardiac sources, intracerebral event, toxologic, neurologic, abnormalities blood glucose, metabolic, as well as others were deemed relatively unlikely. The pt informed about the findings as listed above. All questions were answered and pleased with the treatment. The chart was completed utilizing [employer] voice recognition software. Grammatical errors, random word insertions, pronoun errors, and incomplete sentences are an occassional consequence of this system due to software limitations, ambient noise, and hardware issues. Any formal questions or concerns about the content, text, or information contained within the body of this dictation should be directly addressed to the physician assistant at surgery for clarification. Impression & Plan Generalized weakness, Skin tear of left upper extremity, Acute dehydration Discharge Plan Visit Data Chief Complaint: Fall Stated Complaint: Fall, Leg Weakness, Skin Tear L Forearm ED Provider: Eric Gracia ED Midlevel Provider: Thelma Holguin Discharge Problem: Generalized weakness, Skin tear of left upper extremity, Acute dehydration Patient Disposition: Being Evaluated by Hospitalist Condition: Good Discharge Instructions Interventions: ED Discharge Assessment Last Done: 09/11/24 05:10 Addendum September 11, 2024 12:09 I was consulted by the Advanced Practice Provider and was substantively involved in the patient's visit.This includes aspects of the HPI, MDM, diagnostic interpretations, and disposition/plan. I discussed the case with the GREG and agree with the findings and plan as documented in GREG Ezio's note.
[2024-09-11 02:43] LABS: Appearance Urine Cloudy (Clear); Bacteria Urine Automated None Seen (None Seen); Bilirubin Urine Negative (Negative); Blood Urine Negative (Negative); Cast Urine Automated 0-2 /lpf (0-2); Color Urine Yellow; Epithelial Cell Urine Auto 0-2 /hpf (0-2); Glucose Urine UA Negative (Negative); Ketones Urine Negative (Negative); Leukocyte Esterase Urine Negative (Negative); Nitrite Urine Negative (Negative); Protein Urine 1+ (Negative); RBC Urine Automated 0-2 /hpf (0-2); Specific Gravity Urine 1.014 (1.000-1.030); Urobilinogen Urine Negative (Negative); WBC Urine Automated 0-5 /hpf (0-5)
[2024-09-11 02:46] LABS: Basophils # (auto) 0.01 K/uL (0.00-0.20); Basophils % (auto) 0.2 %; Eosinophils # (auto) 0.08 K/uL (0.00-0.50); Eosinophils % (auto) 1.2 %; Hemoglobin 14.6 g/dl (12.0-16.0); Immature Granulocytes # (auto) 0.01 K/uL (0.01-0.20); Immature Granulocytes % (auto) 0.2 %; Lymphocytes # (auto) 1.18 K/uL (1.20-3.40); Lymphocytes % (auto) 18.3 %; Mean Corpuscular Hemoglobin 31.6 pg (25.0-34.0); Mean Corpuscular Volume 93.1 fL (80.0-100.0); Mean Platelet Volume 10.1 fL (9.4-12.4); Monocytes # (auto) 0.44 K/uL (0.11-0.59); Monocytes % (auto) 6.8 %; Neutrophils # (auto) 4.74 K/uL (1.40-6.50); Neutrophils % (auto) 73.3 %; Platelet Count 134 K/uL (130-400); RDW Coefficient of Variation 13.8 % (11.5-14.5); RDW Standard Deviation 46.6 fL (36.4-46.3); Red Blood Count 4.62 M/uL (4.20-5.40); White Blood Count 6.46 K/ul (4.8-10.8)
[2024-09-11] MEDS: SODIUM CHLORIDE 0.9% 500 ML IV ONE (02:51)
[2024-09-11 02:59] LABS: Albumin Globulin Ratio 1.1 (0.9-2); Albumin Level 4.1 gm/dl (3.4-5.0); BUN Creatinine Ratio 16.7 (10-20); Bilirubin,Total 1.4 mg/dl (0.2-1.0); Calcium 9.8 mg/dl (8.6-10.3); Creatinine Clr Calc Pharmacy 41.2 ml/min; Globulin 3.6 gm/dl (2.5-4.0); Potassium 3.8 mmol/L (3.5-5.1); Total Protein 7.7 gm/dl (6.0-8.3)
[2024-09-11 03:04] LABS: Troponin I High Sensitivity 8.1 pg/ml (0-14)
[2024-09-11 03:13] LABS: Thyroid Stimulating Hormone 15.189 uIu/ml (0.300-4.500)
[2024-09-11 03:32] LABS: Adenovirus PCR Not Detected (NotDetected); Bordetella parapertussis PCR Not Detected (NotDetected); Bordetella pertussis PCR Not Detected (NotDetected); Chlamydia pneumoniae PCR Not Detected (NotDetected); Coronavirus 229E PCR Not Detected (NotDetected); Coronavirus CoV-2 (COVID19)PCR Not Detected (NotDetected); Coronavirus HKU1 PCR Not Detected (NotDetected); Coronavirus NL63 PCR Not Detected (NotDetected); Coronavirus OC43PCR Not Detected (NotDetected); Human Metapneumovirus PCR Not Detected (NotDetected); Influenza A PCR Not Detected (NotDetected); Influenza B PCR Not Detected (NotDetected); Mycoplasma pneumoniae PCR Not Detected (NotDetected); Parainfluenza Virus 1 PCR Not Detected (NotDetected); Parainfluenza Virus 2 PCR Not Detected (NotDetected); Parainfluenza Virus 3 PCR Not Detected (NotDetected); Parainfluenza Virus 4 PCR Not Detected (NotDetected); Respiratory Syncytial VirusPCR Not Detected (NotDetected); Rhinovirus/Enterovirus PCR Not Detected (NotDetected)
--- NOTE | 2024-09-11 03:32 | XRay Report ---
EXAM: XR chest 1V portable CLINICAL HISTORY: GENERALIZED WEAKNESS [facility] TECHNIQUE: X-ray image of the chest is obtained in AP portable projection. COMPARISON: Radiograph dated 07/07/2024. FINDINGS: Pulmonary Parenchyma: Interval improvement of previously seen patchy airspace changes in the left lung and retrocardiac region. Emphysematous changes and chronic interstitial thickening is seen. No evidence of consolidation, collapse, or focal opacities. No pulmonary nodules are identified. No evidence of pleural effusion or pleural thickening. Heart and Mediastinum: Heart size and shape are normal. No mediastinal widening or masses. No hilar or mediastinal lymphadenopathy. Bony Thorax: Stable dextroscoliotic deformity. Old fracture of left 6th and 7th ribs. Soft Tissues: Soft tissues overlying the chest wall are unremarkable. IMPRESSION: 1. Interval improvement of previously seen patchy airspace changes in the left lung and retrocardiac region. 2. Emphysematous changes and chronic interstitial thickening, stable. 3. Stable dextroscoliotic deformity, with old fracture of left 6th and 7th ribs. Electronically signed by Sunita Carranza 09-11-2024 03:31 AM
[2024-09-11 03:49] LABS: T4 Free Thyroxine 0.8 ng/dl (0.61-1.60)
--- NOTE | 2024-09-11 04:46 | History & Physical Report ---
Date of Service September 11, 2024 Assessment & Plan (1) Generalized weakness: (2) Status post fall: (3) Neuroforaminal stenosis of lumbar spine: (4) Paresthesia of right lower extremity: (5) Drug-induced xerostomia: (6) Moderate dehydration: (7) Skin tear of left upper extremity: (8) Cigarette smoker: (9) Hypothyroidism: (10) Hypertension: (11) Hypercholesteremia: (12) COPD (chronic obstructive pulmonary disease): (13) Multiple pulmonary nodules determined by computed tomography of lung: (14) Carcinoid syndrome: (15) Barretts esophagus: Plan Status post fall/generalized weakness/right lower extremity paresthesias and weakness- Generalized weakness with RLE weakness due to radiculopathy, aggravated by dehydration, leading to fall Patient underwent injections with fluoroscopy on 08/08/2024 by pain management, with improvement in chronic low back pain Consult PT/OT Xerostomia/moderate dehydration/protein calorie malnutrition- Hold oxybutynin, could be considered for one of the newer treatments with less side effects such as vibegron Status post NSS bolus 500 mL from the ED NSS at 80 mL x 1 L Encouraged oral fluid intake May benefit from nutritional supplements, consult dietitian COPD- Continue Trelegy Ellipta Continue albuterol HFA Continue DuoNebs every 2 hours as needed Bladder hyperactivity- Holding oxybutynin as noted above Consider trial of another medication such as vibegron/gemtesa Carcinoid syndrome- On octreotide IM monthly as outpatient, following with Dr. Chamberlain GERD/Vu's esophagus- Continue pantoprazole History of Present Illness Chief Complaint: The patient presents to the emergency department with complaint of a fall that occurred when she was trying to get up out of bed to get a drink of water. Primary Care Provider: Rosy Delgado MD The patient is a 78-year-old female with a past medical history including cigarette smoker, hypothyroidism, sacroiliitis, transaminitis, multiple pulmonary nodules, right lower extremity paresthesias, CAD, vitamin D deficiency, Vu's esophagus, bladder hyperactivity, primary malignant neuroendocrine tumor of the ileum, hypertension and COPD. The patient presents to the emergency department from [facility] where she lives, after a ground- level fall that occurred as she was trying to get out of bed to get a drink of w ater. She has significant issues with her mouth being dry, which she attributes oxybutynin. She reports feeling generally weak in her lower extremities, right is worse than the left, which appears to be a chronic weakness. Allergies Allergy/AdvReac Type Severity Reaction Status Date / Time epoxy resin Allergy Intermediate rash, get Verified 09/04/24 13:53 very sick Home Medications Medication Instructions Recorded Confirmed Type acetaminophen 325 mg tablet 325 mg PO Q6H PRN Pain 06/07/19 09/04/24 History cyclobenzaprine 10 mg tablet 10 mg PO TID PRN muscle spasm #90 03/11/23 09/04/24 Rx tabs octreotide,microspheres 20 mg 20 mg IM MONTHLY #1 ea 04/30/23 09/04/24 Rx intramuscular susp, extended release ipratropium 0.5 mg-albuterol 3 mg 3 ml NEB Q4 PRN sob #180 mL 05/25/23 09/04/24 Rx (2.5 mg base)/3 mL nebulization soln magnesium oxide 400 mg PO QAM 10/08/23 09/04/24 History fluticasone propionate 50 2 spray intranasal QAM #11.1 mL 11/30/23 09/04/24 Rx mcg/actuation nasal spray,suspension (Flonase Allergy Relief) rosuvastatin 40 mg tablet (Crestor) 40 mg PO HS #90 tabs 12/07/23 09/04/24 Rx losartan 25 mg tablet (Cozaar) 25 mg PO QAM #100 tabs 02/08/24 09/04/24 Rx alendronate 70 mg tablet (Fosamax) 70 mg PO WK 03/12/24 09/04/24 History albuterol sulfate 90 mcg/actuation 2 puff inhalation Q4H PRN 03/15/24 09/04/24 Rx aerosol inhaler (Ventolin HFA) Shortness Of Breath #18 grams pantoprazole 40 mg tablet,delayed 40 mg PO QAM #30 tabs 05/29/24 09/04/24 Rx release oxybutynin chloride 5 mg tablet 5 mg PO BID #180 tabs 06/08/24 09/04/24 Rx fluticasone fur. 100 mcg-umeclid 1 inh inhalation QAM #60 ea 07/19/24 09/04/24 Rx 62.5 mcg-vilant 25 mcg inhalat.powder (Trelegy Ellipta) hydrocodone 5 mg-acetaminophen 325 1 tab PO Q6H PRN Pain #30 tabs 07/25/2409/04 Rx mg tablet nebulizer accessories (EZ Twist #10 ea 07/26/24 09/04/24 Rx Tubing misc) bupropion HCl 150 mg 24 hr tablet, 150 mg PO QAM #30 tabs 09/01/24 09/04/24 Rx extended release (Wellbutrin XL) levothyroxine 75 mcg tablet 75 mcg PO DAILY 90 days #90 tabs 09/06/24 09/06/24 Rx Past Med/Surg History Problem List (Updated 09/11/24 @ 06:18 by Duke Elkins MD) Status post fall 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 Moderate dehydration Acute dehydration (Acute) Skin tear of left upper extremity (Acute) Generalized weakness (Acute) Cigarette smoker Hypothyroidism Lung nodule Sacroiliitis Left upper lobe pulmonary nodule Transaminitis (Acute) 04/01/24 Multiple pulmonary nodules determined by computed tomography of lung Paresthesia of right lower extremity Scoliosis of thoracolumbar spine Neuroforaminal stenosis of lumbar spine Coronary artery calcification seen on CAT scan Vitamin D deficiency Esophageal dysphagia Chronic neck and back pain Barretts esophagus (Acute) Hyperactivity of bladder (Acute) Impaired fasting glucose (Acute) 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 Hypertension (Chronic) Hypercholesteremia (Chronic) Scoliosis Osteoporosis COPD (chronic obstructive pulmonary disease) (Acute) inhalers/nebulizers daily and prn Medical History COPD (chronic obstructive pulmonary disease) inhalers/nebulizers daily and prn Osteoporosis Hypercholesteremia HTN (hypertension) 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 Barretts esophagus Coronary artery calcification seen on CAT scan Scoliosis of thoracolumbar spine Multiple pulmonary nodules GERD (gastroesophageal reflux disease) History of stomach ulcers Anemia pt not aware 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 History of angina Emphysema lung 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 Surgical History History of dilatation and curettage x2 History of open reduction and internal fixation (ORIF) procedure R willian-hardware removed History of colonoscopy last 2017 History of esophagogastroduodenoscopy (EGD) last 11/2022 History of total abdominal hysterectomy and bilateral salpingo-oophorectomy 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[facility] [place]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 History of tooth extraction all teeth removed History of tonsillectomy History of bilateral cataract extraction Hx of appendectomy History of cholecystectomy Family History Son Type 1 diabetes mellitus Father Myocardial infarction Mother Aneurysm of aortic arch Sister Rheumatoid arthritis Leukemia Mantle cell lymphoma Unknown Thyroid disorder Sister Cancer Other No family history of adverse response to anesthesia Denies family history of Ovarian cancer Prostate cancer Breast cancer Colorectal cancer Social History Smoking Status: Current every day smoker Tobacco Type: Cigarettes Age Started Using Tobacco: 20; packs per day: 0.25; Cigarettes Per Day: 3-4 a day (advised on policy); Second Hand Exposure: No; Do You Dip or Chew Tobacco: No; Tobacco Cessation Education Requested by Patient: No Hx Alcohol Use: No Hx Substance Use: No Preferred Language: Welsh Communication Ability: Effective Visual Impairment: No Limitations Hearing Ability: Normal Classifications Officer Cc/Cm Required: No Beliefs That Will Affect Care: None marital status: Single Current Living Situation: Alone Current Living Situation Comment: has aide come in current occupational status: retired 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, 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) Other Information That Helps Us Care for You: No Feels Safe at Home: Yes Safety Concerns: Feels Safe At This Time Childhood Exposure to Second-Hand Smoke: Yes Diet: regular caffeine: No Dental Care, Regularly: No Physical Activity Frequency: Daily Seatbelt Use: always Sunscreen Use: Yes Assistive Devices: Cane and Glasses Review of Systems Review of Systems: The patient denies chest pain, palpitations, shortness of breath, dyspnea on exertion, cough, sore throat, fevers, chills, sweats, nausea, vomiting, diarrhea , constipation, abdominal pain, pelvic pain, blood in urine or stool, dysuria, urinary frequency or urgency, lightheadedness, dizziness, headache, memory loss, loss of consciousness, rash, abnormal bruising or bleeding, focal or generalized weakness, numbness or tingling in arms, generalized arthralgias or myalgias, neck pain, or night sweats. The review of systems is otherwise negative other than for that already noted above, and at least 10 systems have been reviewed. Physical Exam Physical Exam: The patient is awake, alert and oriented 3, appears overly thin, normocephalic and atraumatic, lying in bed and in no acute distress. HEENT--PERRL, EOMI, mucous membranes and oropharynx moderately dry. Neck--supple. No JVD. No bruits. Thyroid normal, trachea midline, no adenopa thy. Heart--normal S1 and S2. No murmurs, rubs or gallops. Lungs--clear bilaterally, no respiratory distress, no accessory muscle use. Abdomen--normal bowel sounds and soft. Nontender. Nondistended, no hernias or masses, no organomegaly. Extremities--no cyanosis or clubbing. No edema. Dermatologic--skin is dry Neurologic--cranial nerves II through XII grossly intact. Rheumatologic--normal range of motion. Mildly decreased strength right lower extremity Psychiatric--normal affect. Results & Data Results & Data Vital Signs (Past 12 Hours) Vital Signs Temp Pulse Pulse Resp BP BP Pulse Ox 09/11/24 04:06 73 22 129/76 93 09/11/24 03:00 70 20 149/84 H 92 09/11/24 02:40 91 09/11/24 02:25 37.3 C 78 22 149/85 H 91 09/11/24 02:20 77 O2 Del Method 09/11/24 04:06 Room Air 09/11/24 03:00 Room Air 09/11/24 02:40 Room Air 09/11/24 02:25 Room Air 09/11/24 02:20 Laboratory Results Laboratory Results WBC 6.46 K/ul (4.8-10.8) 09/11/24 02:29 RBC 4.62 M/uL (4.20-5.40) 09/11/24 02:29 Hgb 14.6 g/dl (12.0-16.0) 09/11/24 02:29 Hct 43.0 % (37.0-47.0) 09/11/24 02:29 MCV 93.1 fL (80.0-100.0) 09/11/24 02:29 MCH 31.6 pg (25.0-34.0) 09/11/24 02: MCHC 34.0 g/dL (32.0-36.0) 09/11/24 02: RDW Std Deviation 46.6 fL (36.4-46.3) H 09/11/24 02: RDW Coeff of Nichole 13.8 % (11.5-14.5) 09/11/24 02: Plt Count 134 K/uL (130-400) 09/11/24 02: MPV 10.1 fL (9.4-12.4) 09/11/24 02: Immature Gran % (Auto) 0.2 % 09/11/24 02: Neut % (Auto) 73.3 % 09/11/24 02: Lymph % (Auto) 18.3 % 09/11/24 02: [place] % (Auto) 6.8 % 09/11/24 02: Eos % (Auto) 1.2 % 09/11/24 02: Baso % (Auto) 0.2 % 09/11/24 02:29 Neut # (Auto) 4.74 K/uL (1.40-6.50) 09/11/24 02: Lymph # (Auto) 1.18 K/uL (1.20-3.40) L 09/11/24 02:29 [place] # (Auto) 0.44 K/uL (0.11-0.59) 09/11/24 02: Eos # (Auto) 0.08 K/uL (0.00-0.50) 09/11/24 02: Baso # (Auto) 0.01 K/uL (0.00-0.20) 09/11/24 02: Immature Gran # (Auto) 0.01 K/uL (0.01-0.20) 09/11/24 02: Sodium 134 mmol/L (136-145) L 09/11/24 02: Potassium 3.8 mmol/L (3.5-5.1) 09/11/24 02: Chloride 97 mmol/L (98-107) L 09/11/24 02: Carbon Dioxide 28 mmol/L (21-32) 09/11/24 02:29 Anion Gap 9 (3-11) 09/11/24 02:29 BUN 15 mg/dl (6-23) 09/11/24 02:29 Creatinine 0.90 mg/dl (0.6-1.2) 09/11/24 02:29 Est Cr Clr Drug Dosing 41.2 ml/min 09/11/24 02:29 eGFR 66.26 09/11/24 02:29 BUN/Creatinine Ratio 16.7 (10-20) 09/11/24 02:29 Glucose 108 mg/dl (70-99(Fasting)) H 09/11/24 02:29 Calcium 9.8 mg/dl (8.6-10.3) 09/11/24 02:29 Magnesium 2.0 mg/dl (1.7-2.4) 09/11/24 02: Total Bilirubin 1.4 mg/dl (0.2-1.0) H 09/11/24 02:29 AST 40 U/L (13-39) H 09/11/24 02:29 ALT 41 U/L (7-52) 09/11/24 02:29 Alkaline Phosphatase 91 U/L (34-104) 09/11/24 02:29 Total Creatine Kinase 48 U/L (26-192) 09/11/24 02: Troponin I High Sens 8.1 pg/ml (0-14) 09/11/24 02: Total Protein 7.7 gm/dl (6.0-8.3) 09/11/24 02:29 Albumin 4.1 gm/dl (3.4-5.0) 09/11/24 02: Globulin 3.6 gm/dl (2.5-4.0) 09/11/24 02:29 Albumin/Globulin Ratio 1.1 (0.9-2) 09/11/24 02: TSH 15.189 uIu/ml (0.300-4.500) H 09/11/24 02: Free T4 0.80 ng/dl (0.61-1.60) 09/11/24 02:29 Urine Color Yellow 09/11/24 02:29 Urine Appearance Cloudy (Clear) A 09/11/24 02: Urine pH 7.0 (4.5-7.5) 09/11/24 02:29 Ur Specific [place] 1.014 (1.000-1.030) 09/11/24 02: Urine Protein 1+ (Negative) H 09/11/24 02: Urine Glucose (UA) Negative (Negative) 09/11/24 02: Urine Ketones Negative (Negative) 09/11/24 02: Urine Blood Negative (Negative) 09/11/24 02: Urine Nitrite Negative (Negative) 09/11/24 02: Urine Bilirubin Negative (Negative) 09/11/24 02: Urine Urobilinogen Negative (Negative) 09/11/24 02: Ur Leukocyte Esterase Negative (Negative) 09/11/24 02: Urine WBC (Auto) 0-5 /hpf (0-5) 09/11/24: Urine RBC (Auto) 0-2 /hpf (0-2) 09/11/24 02: U Hyaline Cast (Auto) 0-2 /lpf (0-2) 09/11/24 02: U Epithel Cells (Auto) 0-2 /hpf (0-2) 09/11/24 02:29 Urine Bacteria (Auto) None Seen (None Seen) 09/11/24 02:29 Adenovirus (PCR) Not Detected (NotDetected) 09/11/24 02:40 B. pertussis DNA (PCR) Not Detected (NotDetected) 09/11/24 02:40 B.parapertussis DNA PCR Not Detected (NotDetected) 09/11/24 02:40 C. pneumoniae DNA (PCR) Not Detected (NotDetected) 09/11/24 02:40 Coronavirus OC43 (PCR) Not Detected (NotDetected) 09/11/24 02:40 Coronavirus HKU1 (PCR) Not Detected (NotDetected) 09/11/24 02:40 Coronavirus 229E (PCR) Not Detected (NotDetected) 09/11/24 02:40 SARS-CoV-2 (PCR) Not Detected (NotDetected) 09/11/24 02:40 Coronavirus NL63 (PCR) Not Detected (NotDetected) 09/11/24 02:40 Human Metapneumovir PCR Not Detected (NotDetected) 09/11/24 02:40 Influenza Type A (PCR) Not Detected (NotDetected) 09/11/24 02:40 Influenza Type B (PCR) Not Detected (NotDetected) 09/11/24 02:40 M. pneumoniae (PCR) Not Detected (NotDetected) 09/11/24 02:40 Parainfluenza 1 (PCR) Not Detected (NotDetected) 09/11/24 02:40 Parainfluenza 2 (PCR) Not Detected (NotDetected) 09/11/24 02:40 Parainfluenza 3 (PCR) Not Detected (NotDetected) 09/11/24 02:40 Parainfluenza 4 (PCR) Not Detected (NotDetected) 09/11/24 02:40 RSV (PCR) Not Detected (NotDetected) 09/11/24 02:40 Entero/Rhino (PCR) Not Detected (NotDetected) 09/11/24 02:40 Impressions Chest X-Ray 09/11/24 02:20 EXAM: XR chest 1V portable CLINICAL HISTORY: GENERALIZED WEAKNESS JMF TECHNIQUE: X-ray image of the chest is obtained in AP portable projection. COMPARISON: Radiograph dated 07/07/2024. FINDINGS: Pulmonary Parenchyma: Interval improvement of previously seen patchy airspace changes in the left lung and retrocardiac region. Emphysematous changes and chronic interstitial thickening is seen. No evidence of consolidation, collapse, or focal opacities. No pulmonary nodules are identified. No evidence of pleural effusion or pleural thickening. Heart and Mediastinum: Heart size and shape are normal. No mediastinal widening or masses. No hilar or mediastinal lymphadenopathy. Bony Thorax: Stable dextroscoliotic deformity. Old fracture of left 6th and 7th ribs. Soft Tissues: Soft tissues overlying the chest wall are unremarkable. IMPRESSION: 1. Interval improvement of previously seen patchy airspace changes in the left lung and retrocardiac region. 2. Emphysematous changes and chronic interstitial thickening, stable. 3. Stable dextroscoliotic deformity, with old fracture of left 6th and 7th ribs. Electronically signed by Sunita Carranza 09-11-2024 03:31 AM Code Status & VTE Plan Code Status DNR/DNI VTE Prophylaxis Plan VTE Prophylaxis will be ordered: Yes PG Care Time/CCT Total # of Minutes Spent Total Time Spent with Patient: Total time spent is greater than 50% in coordination of care (as documented) at patient's floor/unit and/or counseling patient: Coding Level of Care Code 89858 INT INP/OBS CARE 3/75MIN Diagnoses Generalized weakness R53.1 Status post fall Z91.81 Neuroforaminal stenosis of lumbar spine M48.061 Paresthesia of right lower extremity R20.2 Drug-induced xerostomia K11.7; T50.905A Moderate dehydration E86.0 Skin tear of left upper extremity S41.112A Cigarette smoker F17.210 Hypothyroidism E03.9 Hypertension I10 Hypercholesteremia E78.00 COPD (chronic obstructive pulmonary disease) J44.9 COPD type: unspecified COPD Multiple pulmonary nodules determined by computed tomography of lung R91.8 Carcinoid syndrome E34.0 Barretts esophagus K22.70 (12) COPD (chronic obstructive pulmonary disease) COPD type: unspecified COPD Qualified Code(s): J44.9 - Chronic obstructive pulmonary disease, unspecified
[2024-09-11] MEDS ORDERED: ONDANSETRON INJ 2 MG/ML 2 ML VIAL IV PRN (05:29)
[2024-09-11] MEDS ORDERED: HYDROCODONE/ACETAMOPHEN 5/325MG TAB PO PRN (05:29)
[2024-09-11] MEDS ORDERED: ACETAMINOPHEN 325 MG TAB PO PRN (05:29)
[2024-09-11] MEDS ORDERED: ALBUT/IPRATROP 3MG/0.5MG NEB 3 ML VIAL NEB PRN (05:29)
[2024-09-11] MEDS ORDERED: ALBUTEROL HFA 8 GM INHALER INH PRN (05:29)
[2024-09-11] MEDS: SODIUM CHLORIDE 0.9% 1,000 ML IV SCH (06:18)
[2024-09-11] MEDS: LEVOTHYROXINE SODIUM 75 MCG TABLET PO SCH (06:18)
[2024-09-11] MEDS: UMECLIDINIUM/VILANTEROL 62.5/25MCG 7 PUFFS/INHALER INH SCH (08:22)
[2024-09-11] MEDS: PANTOprazole 40 MG TAB PO SCH (08:22)
[2024-09-11] MEDS: MAGNESIUM OXIDE 400 MG TAB PO SCH (08:22)
[2024-09-11] MEDS: buPROPion XL 150 MG TABCR PO SCH (08:22)
[2024-09-11] MEDS: FLUTICASONE FUROATE 100MCG 14 PUFFS/INHALER INH SCH (08:22)
[2024-09-11] MEDS ORDERED: NON-FORMULARY MEDICATION (Fluticasone-Umeclidin-Vilanter [Trelegy Ellipta] 100-62.5-25 mcg INH SCH (09:00)
[2024-09-11] MEDS: HEPARIN SOD 5,000 UNIT/0.5 ML VIAL SQ SCH (12:09)
--- NOTE | 2024-09-11 14:59 | Electrocardiogram Report ---
Test Reason : Blood Pressure : */* mmHG Vent. Rate : 75 BPM Atrial Rate : 75 BPM P-R Int : 160 ms QRS Dur : 92 ms QT Int : 384 ms P-R-T Axes : 82 66 79 degrees QTcB Int : 428 ms Normal sinus rhythm Normal ECG When compared with ECG of 01-Apr-2024 17:13, No significant change was found Confirmed by Peyman Pemberton ([id number]) on 09/11/2024 2:58:34 PM Referred By: Confirmed By: Peyman Pemberton
--- NOTE | 2024-09-11 15:49 | Hospitalist Progress Note ---
Date of Service September 11, 2024 Assessment & Plan (1) Generalized weakness: Plan: Status post fall/generalized weakness/right lower extremity paresthesias and weakness- Generalized weakness with RLE weakness due to radiculopathy, aggravated by dehydration, leading to fall Patient underwent injections with fluoroscopy on 08/08/2024 by pain management, with improvement in chronic low back pain Consult PT/OT - recommending rehab, pt agreeable (2) Moderate dehydration: Plan: Xerostomia/moderate dehydration/protein calorie malnutrition- Hold oxybutynin, could be considered for one of the newer treatments with less side effects such as vibegron Status post NSS bolus 500 mL from the ED, NSS at 80 mL x 1 L Encouraged oral fluid intake May benefit from nutritional supplements, consult dietitian - recommend smaller meals with snacks Positive Orthostatic VS in ED - repeat 09/11 WNL, continue to check daily losartan held (3) Hypothyroidism: Plan: TSH 15 on arrival However synthroid recently increased by PCP to 75mcg, no further adjustments while inpatient (4) Skin tear of left upper extremity: Plan Chronic stable medical conditions: * COPD-Continue Trelegy Ellipta, albuterol and prn duonebs * Carcinoid syndrome- On octreotide IM monthly as outpatient, following with Dr. Chamberlain * GERD/Vu's esophagus- Continue pantoprazole * HLD - continue statin * tobacco use - continue wellbutrin, using nicotine patches at home. Dispo: continued inpatient stay Admission and Anticipated Discharge Date Admission Date: September 11, 2024 Supervising Physician Co-Signing Physician Notes PA Supervision Note: I did not personally see or examine the patient today, but I verified all sharma points of ELLA Harrison's assessment and plan with the following exceptions/additions: None Subjective Patient seen lying in bed - has been out of bed twice today and was doing better. Feels like she cant move her right leg but is able to lift off bed to show me States at home when she got out of bed she just collapsed and could not stand on that leg - denies any lightheadedness or dizziness Review of Systems Review of Systems: All systems reviewed & are unremarkable except as noted in Subjective Physical Exam Physical Exam: General: NAD, VS as above Resp: normal respiratory effort, lungs clear to auscultation CV: RRR, no murmur, Abd: normal bowel sounds, non tender, no hepatosplenomegaly Extremities: Moves all extremities, no edema Neuro: A&O x3, Skin: intact, no lesions noted Results & Data Results & Data Vital Signs (Past 12 Hours) Vital Signs Temp Pulse Pulse Pulse Resp BP BP 09/11/24 07:44 99.0 F 67 16 156/71 H 09/11/24 05:30 98.4 F 80 18 145/86 H 09/11/24 05:12 71 18 119/68 09/11/24 04:06 73 22 129/76 Pulse Ox O2 Del Method 09/11/24 07:44 93 Room Air 09/11/24 05:30 93 Room Air 09/11/24 05:12 92 09/11/24 04:06 93 Room Air PG Care Time/CCT Total # of Minutes Spent Total Time Spent with Patient: Total time spent is greater than 50% in coordination of care (as documented) at patient's floor/unit and/or counseling patient: Coding Level of Care Code None Diagnoses Generalized weakness R53.1 Moderate dehydration E86.0 Hypothyroidism E03.9 Skin tear of left upper extremity S41.112A
[2024-09-11] MEDS: ROSUVASTATIN CALCIUM 20 MG TAB PO SCH (20:15)
[2024-09-12 07:34] LABS: Basophils # (auto) 0.02 K/uL (0.00-0.20); Basophils % (auto) 0.4 %; Eosinophils # (auto) 0.09 K/uL (0.00-0.50); Eosinophils % (auto) 1.7 %; Hematocrit (blood only) 33.7 % (37.0-47.0); Hemoglobin 11.7 g/dl (12.0-16.0); Immature Granulocytes # (auto) 0.03 K/uL (0.01-0.20); Immature Granulocytes % (auto) 0.6 %; Lymphocytes # (auto) 1.07 K/uL (1.20-3.40); Lymphocytes % (auto) 19.7 %; Mean Corpuscular Hemoglobin 31.7 pg (25.0-34.0); Mean Corpuscular Hgb Conc 34.7 g/dL (32.0-36.0); Mean Corpuscular Volume 91.3 fL (80.0-100.0); Mean Platelet Volume 10.3 fL (9.4-12.4); Monocytes # (auto) 0.55 K/uL (0.11-0.59); Monocytes % (auto) 10.1 %; Neutrophils # (auto) 3.68 K/uL (1.40-6.50); Neutrophils % (auto) 67.5 %; Platelet Count 117 K/uL (130-400); RDW Coefficient of Variation 13.5 % (11.5-14.5); RDW Standard Deviation 45.5 fL (36.4-46.3); Red Blood Count 3.69 M/uL (4.20-5.40); White Blood Count 5.44 K/ul (4.8-10.8)
[2024-09-12 07:56] LABS: Albumin Globulin Ratio 1.3 (0.9-2); Albumin Level 3.4 gm/dl (3.4-5.0); BUN Creatinine Ratio 14.4 (10-20); Calcium 8.4 mg/dl (8.6-10.3); Creatinine Clr Calc Pharmacy 38.2 ml/min; Globulin 2.7 gm/dl (2.5-4.0); Magnesium 1.9 mg/dl (1.7-2.4); Potassium 3.9 mmol/L (3.5-5.1); Total Protein 6.1 gm/dl (6.0-8.3)
--- NOTE | 2024-09-12 14:33 | Hospitalist Progress Note ---
Date of Service September 12, 2024 Assessment & Plan (1) Generalized weakness: Plan: Status post fall/generalized weakness/right lower extremity paresthesias and weakness- Generalized weakness with RLE weakness due to radiculopathy, aggravated by dehydration, leading to fall Patient underwent injections with fluoroscopy on 08/08/2024 by pain management, with improvement in chronic low back pain Consult PT/OT - recommending rehab, pt agreeable - CM following (2) Moderate dehydration: Plan: Xerostomia/moderate dehydration/protein calorie malnutrition- Hold oxybutynin, could be considered for one of the newer treatments with less side effects such as vibegron Status post NSS bolus 500 mL from the ED, NSS at 80 mL x 1 L Encouraged oral fluid intake May benefit from nutritional supplements, consult dietitian - recommend smaller meals with snacks Positive Orthostatic VS in ED - repeat 09/11 WNL, continue to check daily losartan held (3) Transaminitis: Plan: Mild elevation on admission T. Bili 1.4, AST 40 - has had mild fluctuating elevations in LFT since 10/2023. Alk phos rarely elevated - 10/2023 is also when her Octreotide dose was increased Repeat labs with T.Bili 1.0, AST 65 and ALt 52 - pt denies RUQ pain (4) Hypothyroidism: Plan: TSH 15 on arrival However synthroid recently increased by PCP to 75mcg, no further adjustments while inpatient (5) Skin tear of left upper extremity: Plan Chronic stable medical conditions: * COPD-Continue Trelegy Ellipta, albuterol and prn duonebs * Carcinoid syndrome- On octreotide IM monthly as outpatient, following with Dr. Chamberlain * GERD/Vu's esophagus- Continue pantoprazole * HLD - continue statin * tobacco use - continue wellbutrin, using nicotine patches at home. Dispo: continued inpatient stay Admission and Anticipated Discharge Date Admission Date: September 11, 2024 Supervising Physician Co-Signing Physician Notes PA Supervision Note: I did not personally see or examine the patient today, but I verified all sharma points of ELLA Harrison's assessment and plan with the following exceptions/additions: None Subjective Patient seen sitting up in the chair - feels like her leg is starting to move better. Denies numbness or tingling in either leg. No lightheadedness or dizziness. No low back pain states no one has ever discussed her rising LFTs with her Physical Exam Physical Exam: General: NAD, VS as above Resp: normal respiratory effort, lungs clear to auscultation CV: RRR, no murmur, Abd: normal bowel sounds, non tender, no hepatosplenomegaly Extremities: Moves all extremities, no edema - increased movement of right leg without pain Neuro: A&O x3, Skin: intact, no lesions noted Results & Data Results & Data Vital Signs (Past 12 Hours) Vital Signs Temp Pulse Resp BP Pulse Ox O2 Del Method 09/12/24 09:00 Room Air 09/12/24 07:32 98.4 F 66 18 122/73 95 Room Air Laboratory Results CBC and chemistry reviewed PG Care Time/CCT Total # of Minutes Spent Total Time Spent with Patient: Total time spent is greater than 50% in coordination of care (as documented) at patient's floor/unit and/or counseling patient: Coding Level of Care Code 99810 SUB INP/OBS CARE 2/35MIN Diagnoses Generalized weakness R53.1 Moderate dehydration E86.0 Transaminitis R74.01 Hypothyroidism E03.9 Skin tear of left upper extremity S41.112A
[2024-09-12] MEDS: FLUTICASONE PROPIONATE NA SPR 16 GM BTL SCH (20:31)
[2024-09-13 07:40] LABS: Basophils # (auto) 0.01 K/uL (0.00-0.20); Basophils % (auto) 0.2 %; Hematocrit (blood only) 35.4 % (37.0-47.0); Hemoglobin 11.9 g/dl (12.0-16.0); Immature Granulocytes # (auto) 0.02 K/uL (0.01-0.20); Immature Granulocytes % (auto) 0.4 %; Lymphocytes # (auto) 0.99 K/uL (1.20-3.40); Lymphocytes % (auto) 19.8 %; Mean Corpuscular Hemoglobin 31.2 pg (25.0-34.0); Mean Corpuscular Hgb Conc 33.6 g/dL (32.0-36.0); Mean Corpuscular Volume 92.7 fL (80.0-100.0); Mean Platelet Volume 10.2 fL (9.4-12.4); Monocytes # (auto) 0.52 K/uL (0.11-0.59); Monocytes % (auto) 10.4 %; Neutrophils # (auto) 3.35 K/uL (1.40-6.50); Neutrophils % (auto) 67.2 %; Platelet Count 125 K/uL (130-400); RDW Coefficient of Variation 13.5 % (11.5-14.5); RDW Standard Deviation 45.7 fL (36.4-46.3); Red Blood Count 3.82 M/uL (4.20-5.40); White Blood Count 4.99 K/ul (4.8-10.8)
[2024-09-13 07:42] LABS: Albumin Globulin Ratio 1.2 (0.9-2); Albumin Level 3.5 gm/dl (3.4-5.0); BUN Creatinine Ratio 13.3 (10-20); Bilirubin,Total 0.9 mg/dl (0.2-1.0); Calcium 8.6 mg/dl (8.6-10.3); Creatinine Clr Calc Pharmacy 38.2 ml/min; Globulin 2.9 gm/dl (2.5-4.0); Potassium 3.9 mmol/L (3.5-5.1); Total Protein 6.4 gm/dl (6.0-8.3)
[2024-09-13] MEDS: OPTIRAY 320 100ml IV ONE (10:49)
--- NOTE | 2024-09-13 11:50 | CT Scan Report ---
CHEST CT WITH CONTRAST CT DOSE: 248.86 mGy.cm HISTORY: Follow-up study in a patient with history of pulmonary nodules. recheck pulm nodule TECHNIQUE: Multiaxial CT images of the chest were performed following the IV administration of 94 cc of Optiray. A dose lowering technique was utilized adhering to the principles of ALARA. COMPARISON: PET CT 06/28/2024, chest CT 04/13/2024. FINDINGS: No thyroid nodule. A 2.3 x 1.1 cm precarinal lymph node on image 95 series 4, previously me asured 1.6 x 1.0 cm. No additional lymphadenopathy is identified. Heart is normal in size without per icardial effusion. Extensive coronary artery calcifications. Atherosclerosis of the thoracic aorta wi thout aneurysm. Descending thoracic aortic tortuosity. No pulmonary emboli is identified. Trace right pleural effusion. No pneumothorax. Severe pulmonary emphysema with bronchial wall thicken ing suggestive of bronchitis. Mild right lung base mucus plugging. An 8 mm irregular solid nodule of the left upper lobe on image 55 series 4 has slightly decreased in size from prior. This originally m easured 12 mm on the 04/13/2024 exam. Unchanged 8 mm subpleural solid nodule of the basal left lower lo be on image 173. Previously noted 5 mm left lower lobe solid pulmonary nodule is not seen on today's study. New consolidative opacities of the right lung apex measure up to approximately 4 cm, extending into the right suprahilar distribution. Unchanged calcified granuloma of the left lower lobe on imag e 98. Intrahepatic and extrahepatic biliary ductal dilation is similar to prior. Chronic midthoracic compre ssion deformity. No destructive bone lesions. No acute fracture. IMPRESSION: 1. Severe pulmonary emphysema with new right apical airspace opacities suggestive of pneumonia. Atten tion at follow-up is recommended. 2. Irregular 8 mm solid nodule of the left upper lobe has mildly decreased in size from prior, origin ally measuring 12 mm on the 04/13/2024 study. 3. Increased size of the nonspecific precarinal lymph node measuring 11 mm in short axis. No addition al lymphadenopathy. ACT 112: Negative or not required by law. Dictated: 09/13/2024 11:15 AM Transcribed: 09/13/2024 11:44 AM Jesús [id number] PAULINA_Carol Ann Electronically signed by: Oskar Rodriguez M.D. 09/13/2024 11:48 AM
--- NOTE | 2024-09-13 16:07 | Hospitalist Progress Note ---
Date of Service September 13, 2024 Assessment & Plan (1) Generalized weakness: Plan: Status post fall/generalized weakness/right lower extremity paresthesias and weakness- Generalized weakness with RLE weakness due to radiculopathy, aggravated by dehydration, leading to fall Patient underwent injections with fluoroscopy on 08/08/2024 by pain management, with improvement in chronic low back pain Consult PT/OT - recommending rehab, pt agreeable - Plan for [facility] on Sunday 09/16 (2) Moderate dehydration: Plan: Xerostomia/moderate dehydration/protein calorie malnutrition- Hold oxybutynin, could be considered for one of the newer treatments with less side effects such as vibegron Status post NSS bolus 500 mL from the ED, NSS at 80 mL x 1 L Encouraged oral fluid intake Laboratory Sampler consulted - recommend smaller meals with snacks Positive Orthostatic VS in ED - repeat x2 WNL losartan held (3) Transaminitis: Plan: Mild elevation on admission T. Bili 1.4, AST 40 and continue to fluctuate - pt denies RUQ pain -PET CT from recent shows no liver abnormalities - has had mild fluctuating elevations in LFT since 10/2023. Alk phos rarely elevated - 10/2023 is also when her Octreotide dose was increased (4) Hypothyroidism: Plan: TSH 15 on arrival However synthroid recently increased by PCP to 75mcg, no further adjustments while inpatient (5) Skin tear of left upper extremity: (6) Carcinoid syndrome: Plan: On octreotide IM monthly as outpatient, following with Dr. Chamberlain Was due for repeat CT scan per pulmonology 09/15 - preformed while inpatient and message sent to Dr. Poole - showing one nodule decreased in size with one lymph node increasing in size as well as RUL PNA-start antibiotics with Augmentin, doxycycline Needs f/u with PULM for abnormal lung findings on CT chest Plan Chronic stable medical conditions: * COPD-Continue Trelegy Ellipta, albuterol and prn duonebs * GERD/Vu's esophagus- Continue pantoprazole * HLD - continue statin * tobacco use - continue wellbutrin, using nicotine patches at home. * htn - resume losartan Dispo: continued inpatient stay son updated at bedside 09/12 Admission and Anticipated Discharge Date Admission Date: September 11, 2024 Supervising Physician Co-Signing Physician Notes PA Supervision Note: I did not personally see or examine the patient today, but I verified all sharma points of ELLA Harrison's assessment and plan with the following exceptions/additions: None Subjective Leg continues to improve. Very appreciative that we were able to do her CT scan today. Review of Systems Review of Systems: All systems reviewed & are unremarkable except as noted in Subjective Physical Exam Physical Exam: General: NAD, VS as above Resp: normal respiratory effort, lungs clear to auscultation CV: RRR, no murmur, Abd: soft, non tender, no hepatosplenomegaly Extremities: Moves all extremities, no edema - increased movement of right leg without pain Neuro: A&O x3, Skin: intact, no lesions noted Results & Data Results & Data Vital Signs (Past 12 Hours) Vital Signs Temp Pulse Resp BP Pulse Ox O2 Del Method 09/13/24 09:06 Room Air 09/13/24 08:24 98.1 F 69 18 124/73 94 Room Air 09/13/24 07:31 Room Air Laboratory Results CBC and chemistry reviewed Diagnostic Findings Chest CT reviewed PG Care Time/CCT Total # of Minutes Spent Total Time Spent with Patient: Total time spent is greater than 50% in coordination of care (as documented) at patient's floor/unit and/or counseling patient: Coding Level of Care Code 70593 SUB INP/OBS CARE 3/50MIN Diagnoses Generalized weakness R53.1 Moderate dehydration E86.0 Transaminitis R74.01 Hypothyroidism E03.9 Skin tear of left upper extremity S41.112A Carcinoid syndrome E34.0
[2024-09-13] MEDS: AMOXICILLIN/CLAVULANATE 875 MG TAB PO SCH (17:28)
[2024-09-13] MEDS: DOXYCYCLINE HYCLATE 100 MG CAP PO SCH (22:08)
[2024-09-14] MEDS: LOSARTAN POTASSIUM 25 MG TAB PO SCH (07:32)
[2024-09-14 07:42] LABS: Hematocrit (blood only) 34.4 % (37.0-47.0); Hemoglobin 11.8 g/dl (12.0-16.0); Mean Corpuscular Hemoglobin 31.3 pg (25.0-34.0); Mean Corpuscular Hgb Conc 34.3 g/dL (32.0-36.0); Mean Corpuscular Volume 91.2 fL (80.0-100.0); Mean Platelet Volume 10.4 fL (9.4-12.4); Platelet Count 128 K/uL (130-400); RDW Coefficient of Variation 13.3 % (11.5-14.5); RDW Standard Deviation 44.7 fL (36.4-46.3); Red Blood Count 3.77 M/uL (4.20-5.40); White Blood Count 4.97 K/ul (4.8-10.8)
--- NOTE | 2024-09-14 12:13 | Hospitalist Progress Note ---
Date of Service September 14, 2024 Assessment & Plan (1) Generalized weakness: Plan: Status post fall/generalized weakness/right lower extremity paresthesias and weakness- Generalized weakness with RLE weakness due to radiculopathy, aggravated by dehydration, leading to fall Patient underwent injections with fluoroscopy on 08/08/2024 by pain management, with improvement in chronic low back pain Consult PT/OT - recommending rehab, pt agreeable - Plan for [facility] on Sunday 09/16 (2) Moderate dehydration: Plan: Xerostomia/moderate dehydration/protein calorie malnutrition- Hold oxybutynin, could be considered for one of the newer treatments with less side effects such as vibegron - has not reported worsening incontinence Received 1.5L IVF Encouraged oral fluid intake Tool And Production Planner consulted - recommend smaller meals with snacks Positive Orthostatic VS in ED - repeat x2 WNL losartan resumed (3) Transaminitis: Plan: Mild elevation on admission T. Bili 1.4, AST 40 and continue to fluctuate - pt denies RUQ pain -PET CT from recent shows no liver abnormalities - has had mild fluctuating elevations in LFT since 10/2023. Alk phos rarely elevated - 10/2023 is also when her Octreotide dose was increased (4) Hypothyroidism: Plan: TSH 15 on arrival However synthroid recently increased by PCP to 75mcg, no further adjustments while inpatient (5) Carcinoid syndrome: Plan: On octreotide IM monthly as outpatient, following with Dr. Chamberlain Was due for repeat CT scan per pulmonology 09/15 - preformed while inpatient and message sent to Dr. Poole - he will see in her follow up, has appointment scheduled 09/19 - showing one nodule decreased in size with one lymph node increasing in size as well CT scan also showing Right apical PNA - 10 day course of Augmentin and Doxycycline per pulmonology - IS Plan Chronic stable medical conditions: * COPD-Continue Trelegy Ellipta, albuterol and prn duonebs * GERD/Vu's esophagus- Continue pantoprazole * HLD - continue statin * tobacco use - continue wellbutrin, using nicotine patches at home. * htn - resume losartan Dispo: continued inpatient stay son updated at bedside 09/12 Admission and Anticipated Discharge Date Admission Date: September 11, 2024 Subjective Patient seen sitting up in the chair. was not surprised to hear that she has pneumonia, but denies cough or shortness of breath feels like her legs is moving better plan for [facility] Review of Systems Review of Systems: All systems reviewed & are unremarkable except as noted in Subjective Physical Exam Physical Exam: General: NAD, VS as above Resp: normal respiratory effort, lungs clear to auscultation, no wheezing CV: RRR, no murmur, Abd: soft, non tender, Extremities: Moves all extremities, no edema Neuro: A&O x3, Skin: intact, no lesions noted Results & Data Results & Data Vital Signs (Past 12 Hours) Vital Signs Temp Pulse Resp BP Pulse Ox O2 Del Method 09/14/24 08:20 98.2 F 77 18 157/78 H 93 Room Air Laboratory Results cbc reviewed PG Care Time/CCT Total # of Minutes Spent Total Time Spent with Patient: Total time spent is greater than 50% in coordination of care (as documented) at patient's floor/unit and/or counseling patient: Coding Level of Care Code 43088 SUB INP/OBS CARE 2/35MIN Diagnoses Generalized weakness R53.1 Moderate dehydration E86.0 Transaminitis R74.01 Hypothyroidism E03.9 Carcinoid syndrome E34.0
[2024-09-14] MEDS: MAGNESIUM OXIDE 400 MG TAB PO SCH (13:54)
[2024-09-14 20:23] VITALS: TEMP 99.1; O2SAT 92
[2024-09-15 07:25] LABS: Albumin Globulin Ratio 1.1 (0.9-2); Albumin Level 3.4 gm/dl (3.4-5.0); BUN Creatinine Ratio 13.1 (10-20); Bilirubin,Total 0.7 mg/dl (0.2-1.0); Calcium 8.4 mg/dl (8.6-10.3); Creatinine Clr Calc Pharmacy 40.9 ml/min; Potassium 3.4 mmol/L (3.5-5.1); Total Protein 6.4 gm/dl (6.0-8.3)
[2024-09-15 07:59] VITALS: BP 133/80; PULSE 77; RESP 18
[2024-09-15] MEDS: POTASSIUM CHLORIDE CRTAB 20 MEQ TABCR PO STA (09:22)
--- NOTE | 2024-09-15 09:54 | Discharge Summary ---
Discharge Summary Date of Service September 15, 2024 Principal Dx & Hospital Course #1 = Principal Diagnosis (1) Generalized weakness: Status post fall/generalized weakness/right lower extremity paresthesias and weakness- Generalized weakness with RLE weakness due to radiculopathy, aggravated by dehydration, leading to fall Patient underwent injections with fluoroscopy on 08/08/2024 by pain management, with improvement in chronic low back pain Consult PT/OT - recommending rehab, pt agreeable - Plan for [facility] today (2) Moderate dehydration: Xerostomia/moderate dehydration/protein calorie malnutrition- Oxybutynin discontinued - denies worsening incontience, consider different medication outpatient if worsens. Sample Display Preparer consulted - recommend smaller meals with snacks Received IVFs, orthostatic Vital signs improved. Losartan resumed. (3) Transaminitis: Mild elevation on admission T. Bili 1.4, AST 40 and continue to fluctuate - pt denies RUQ pain -PET CT from recent shows no liver abnormalities - has had mild fluctuating elevations in LFT since 10/2023. Alk phos rarely elevated - 10/2023 is also when her Octreotide dose was increased --> message sent to Oncology provider (4) Hypothyroidism: TSH 15 on arrival However synthroid recently increased by PCP to 75mcg, no further adjustments while inpatient (5) Carcinoid syndrome: On octreotide IM monthly as outpatient, following with Dr. Chamberlain Was due for repeat CT scan per pulmonology 09/15 - preformed while inpatient and message sent to Dr. Poole - he will see in her follow up, has appointment scheduled 09/19 - KEEP THIS - showing one nodule decreased in size with one lymph node increasing in size as well CT scan also showing Right apical PNA ---> 10 day course of Augmentin and Doxycycline per pulmonology - IS Plan Chronic stable medical conditions: * COPD-Continue Trelegy Ellipta, albuterol and prn duonebs * GERD/Vu's esophagus- Continue pantoprazole * HLD - continue statin * tobacco use - continue Wellbutrin, using nicotine patches at home. * htn - resume losartan Dispo: [facility] son updated at bedside 09/12 Notes For Next Care Provider stop oxybutynin - urinary incontinence unchanged continuing treatment for PNA - keep pulm follow up suspect LFT elevations are from octreotide injections Admission HPI Per Admitting Provider The patient is a 78-year-old female with a past medical history including cigarette smoker, hypothyroidism, sacroiliitis, transaminitis, multiple pulmonary nodules, right lower extremity paresthesias, CAD, vitamin D deficiency, Vu's esophagus, bladder hyperactivity, primary malignant neuroendocrine tumor of the ileum, hypertension and COPD. The patient presents to the emergency department from [facility] where she lives, after a ground- level fall that occurred as she was trying to get out of bed to get a drink of water. She has significant issues with her mouth being dry, which she attributes oxybutynin. She reports feeling generally weak in her lower extremities, right is worse than the left, which appears to be a chronic weakness. Discharge Exam General: NAD, VS as above Resp: normal respiratory effort, lungs clear to auscultation, no wheezing CV: RRR, no murmur, Abd: soft, non tender, Extremities: Moves all extremities, no edema Neuro: A&O x3, Skin: intact, no lesions noted Discharge Plan Discharge Items Patient Disposition: [facility] Reason For Visit: MODERATE DEHYDRATION, MED SIDE EFFECT. S.P Discharge Diagnosis: Pneumonia, dehydration Condition on Discharge: Good Activity: As commented below Activity Comment: work with therapy to get stronger Non-emergency contact: Primary Care Provider Call non-emergency contact if: you have any medication questions and your symptoms worsen Follow-up/Referrals: Reece Poole MD [Physician] - (keep appointment 09/19 ) Rosy Delgado MD [Primary Care Provider] - (follow up within one week from discharge from [facility] ) Diet: Regular Addtl Attending Provider Instructions: Ms. Gunderson, Ald[place] were hospitalized after having weakness and falls at home. This was found to be from dehydration and possible related to your pneumonia. For the pneumonia you will be treated with 2 antibiotics for a total of 10 days. Last day of treatment is 09/23. You had fluctuating changes in your liver function tests, based on your history and the workup we did, I expect that this is from the octreotide you receive. You can discuss this with Dr. Chamberlain if it should change your dosing. We have discontinued your oxybutynin and your urinary incontinence/leakage has been stable. If this worsens, please talk to your PCP about alternatives. Continue to monitor Thyroid function with your PCP. Keep your follow up with Dr. Poole as scheduled 09/19 at 11AM Thank you for allowing us to participate in your care Leticia Harrison PA-C Pending Studies at Discharge: No Stand-Alone Forms: My [facility] Skilled Items Patient informed of condition?: Yes DNR: Yes Discharge Level of Care: Acute rehab Communicable Disease: No Discharge Prognosis: Stable Lines: None Urinary Catheter: No Medications and DC Order Prescriptions: New amoxicillin-pot clavulanate 875-125 mg Tablet 1 tab PO BIDM 8 Days Qty: 16 0RF doxycycline hyclate 100 mg Capsule 100 mg PO BID 8 Days Qty: 16 0RF Continued cyclobenzaprine 10 mg tablet 10 mg PO TID PRN (Reason: muscle spasm) Qty: 90 6RF octreotide,microspheres 20 mg suspension,extended rel recon 20 mg IM MONTHLY Qty: 1 0RF Rx Instructions: DUE 03/15/24 ipratropium-albuterol 0.5 mg-3 mg(2.5 mg base)/3 mL solution for nebulization 3 ml NEB Q4 PRN (Reason: sob) Qty: 180 5RF fluticasone propionate [Flonase Allergy Relief] 50 mcg/actuation spray,suspension 2 spray INTRANASAL QAM Qty: 11.1 6RF rosuvastatin [Crestor] 40 mg tablet 40 mg PO HS Qty: 90 3RF losartan [Cozaar] 25 mg tablet 25 mg PO QAM Qty: 100 3RF albuterol sulfate [Ventolin HFA] 90 mcg/actuation HFA aerosol inhaler 2 puff INHALATION Q4H PRN (Reason: Shortness Of Breath) Qty: 18 3RF pantoprazole 40 mg tablet,delayed release (DR/EC) 40 mg PO QAM Qty: 30 5RF Trelegy Ellipta 100-62.5-25 mcg blister with device 1 inh INH QAM Qty: 60 5RF hydrocodone-acetaminophen 5-325 mg tablet 1 tab PO Q6H PRN (Reason: Pain) Qty: 30 0RF (DME) EZ Twist Tubing Misc See Rx Instructions .Route Qty: 10 0RF Rx Instructions: As directed acetaminophen 325 mg tablet 325 mg PO Q6H PRN (Reason: Pain) bupropion HCl [Wellbutrin XL] 150 mg tablet extended release 24 hr 150 mg PO QAM Qty: 30 2RF levothyroxine 75 mcg tablet 75 mcg PO DAILY 90 Days Qty: 90 3RF magnesium oxide 400 mg magnesium Tablet 400 mg PO QAM alendronate [Fosamax] 70 mg tablet 70 mg PO WK Rx Instructions: WEDNESDAY Discontinued oxybutynin chloride 5 mg tablet 5 mg PO BID Qty: 180 3RF Discharge Orders: Discharge Order (Routine); Ordered 09/15/24 Ordered By: Leticia Harrison Admission Data Admit Date/Time: 09/11/24 04:38 Attending Provider: Zane Abarca Admit Provider: Duke Elkins Primary Care Provider: Rosy Delgado Other Providers: Duke Elkins; [facility] Emergency [facility] Hospital Stay Data Consultations 09/11/24 03:34 ED Decision to Admit Stat Diagnostic Imagining Performed Chest X-Ray 09/11/24 02:20 EXAM: XR chest 1V portable CLINICAL HISTORY: GENERALIZED WEAKNESS JMF TECHNIQUE: X-ray image of the chest is obtained in AP portable projection. COMPARISON: Radiograph dated 07/07/2024. FINDINGS: Pulmonary Parenchyma: Interval improvement of previously seen patchy airspace changes in the left lung and retrocardiac region. Emphysematous changes and chronic interstitial thickening is seen. No evidence of consolidation, collapse, or focal opacities. No pulmonary nodules are identified. No evidence of pleural effusion or pleural thickening. Heart and Mediastinum: Heart size and shape are normal. No mediastinal widening or masses. No hilar or mediastinal lymphadenopathy. Bony Thorax: Stable dextroscoliotic deformity. Old fracture of left 6th and 7th ribs. Soft Tissues: Soft tissues overlying the chest wall are unremarkable. IMPRESSION: 1. Interval improvement of previously seen patchy airspace changes in the left lung and retrocardiac region. 2. Emphysematous changes and chronic interstitial thickening, stable. 3. Stable dextroscoliotic deformity, with old fracture of left 6th and 7th ribs. Electronically signed by Sunita Carranza 09-11-2024 03:[address] 09/13/24 09:[address] CONTRAST CT DOSE: 248.86 mGy.cm HISTORY: Follow-up study in a patient with history of pulmonary nodules. recheck pulm nodule TECHNIQUE: Multiaxial CT images of the chest were performed following the IV administration of 94 cc of Optiray. A dose lowering technique was utilized adhering to the principles of ALARA. COMPARISON: PET CT 06/28/2024, chest CT 04/13/2024. FINDINGS: No thyroid nodule. A 2.3 x 1.1 cm precarinal lymph node on image 95 series 4, previously measured 1.6 x 1.0 cm. No additional lymphadenopathy is identified. Heart is normal in size without pericardial effusion. Extensive coronary artery calcifications. Atherosclerosis of the thoracic aorta without aneurysm. Descending thoracic aortic tortuosity. No pulmonary emboli is identified. Trace right pleural effusion. No pneumothorax. Severe pulmonary emphysema with bronchial wall thickening suggestive of bronchitis. Mild right lung base mucus p lugging. An 8 mm irregular solid nodule of the left upper lobe on image 55 series 4 has slightly decreased in size from prior. This originally measured 12 mm on the 04/13/2024 exam. Unchanged 8 mm subpleural solid nodule of the basal left lower lobe on image 173. Previously noted 5 mm left lower lobe solid pulmonary nodule is not seen on today's study. New consolidative opacities of the right lung apex measure up to approximately 4 cm, extending into the right suprahilar distribution. Unchanged calcified granuloma of the left lower lobe on image 98. Intrahepatic and extrahepatic biliary ductal dilation is similar to prior. Chronic midthoracic compression deformity. No destructive bone lesions. No acute fracture. IMPRESSION: 1. Severe pulmonary emphysema with new right apical airspace opacities suggestive of pneumonia. Attention at follow-up is recommended. 2. Irregular 8 mm solid nodule of the left upper lobe has mildly decreased in size from prior, originally measuring 12 mm on the 04/13/2024 study. 3. Increased size of the nonspecific precarinal lymph node measuring 11 mm in short axis. No additional lymphadenopathy. ACT 112: Negative or not required by law. Dictated: 09/13/2024 11:15 AM Transcribed: 09/13/2024 11:44 AM Jesús [id number] PAULINA_Carol Ann Electronically signed by: Oskar Rodriguez M.D. 09/13/2024 11:48 AM Pending Results Patient Have Any Pending Studies at Discharge: No Discharge Instructions Given to Patient (Per Discharging Provider) Ms. Gunderson, [place] were hospitalized after having weakness and falls at home. This was found to be from dehydration and possible related to your pneumonia. For the pneumonia you will be treated with 2 antibiotics for a total of 10 days. Last day of treatment is 09/23. You had fluctuating changes in your liver function tests, based on your history and the workup we did, I expect that this is from the octreotide you receive. You can discuss this with Dr. Chamberlain if it should change your dosing. We have discontinued your oxybutynin and your urinary incontinence/leakage has been stable. If this worsens, please talk to your PCP about alternatives. Continue to monitor Thyroid function with your PCP. Keep your follow up with Dr. Poole as scheduled 09/19 at 11AM Thank you for allowing us to participate in your care Leticia Harrison PA-C Total Time Total Time Spent Total Time Spent (In Minutes): Time spent day of discharge 35 minutes including direct patient care, medication reconciliation, documentation, review of labs and images, and coordination of care. Coding Level of Care Code 91728 INP/OBS DISCH >30 MIN Diagnoses Generalized weakness R53.1 Moderate dehydration E86.0 Transaminitis R74.01 Hypothyroidism E03.9 Carcinoid syndrome E34.0
== END 2024-09-15 15:00 | DRG 640 ==
LOC: ED 02:15 → SUATTDRO 04:38 → 3W 04:38
DX: E86.0 Dehydration; F17.210 Nicotine dependence, cigarettes, uncomplicated; R74.01 Elevation of levels of liver transaminase levels; J43.9 Emphysema, unspecified; I25.10 Atherosclerotic heart disease of native coronary artery without angina pectoris; Z79.899 Other long term (current) drug therapy; R20.2 Paresthesia of skin; M48.061 Spinal stenosis, lumbar region without neurogenic claudication; X58.XXXA Exposure to other specified factors, initial encounter; I10 Essential (primary) hypertension; Z11.52 Encounter for screening for COVID-19; Z90.49 Acquired absence of other specified parts of digestive tract; Z66 Do not resuscitate; E46 Unspecified protein-calorie malnutrition; K21.9 Gastro-esophageal reflux disease without esophagitis; E78.00 Pure hypercholesterolemia, unspecified; J44.9 Chronic obstructive pulmonary disease, unspecified; K22.70 Barrett's esophagus without dysplasia; E03.9 Hypothyroidism, unspecified; R91.8 Other nonspecific abnormal finding of lung field; R29.6 Repeated falls; S41.112A Laceration without foreign body of left upper arm, initial encounter; J18.9 Pneumonia, unspecified organism; Z68.1 Body mass index [BMI] 19.9 or less, adult; Z79.818 Long term (current) use of other agents affecting estrogen receptors and estrogen levels

== ENCOUNTER 2025-03-08 22:01 | Inpatient (IN) ==
--- NOTE | 2025-03-08 23:06 | Emergency Department Note ---
Impression & Plan Closed fracture of left hip, Ground-level fall ED Provider Note Name: RJ Wilkerson Age: 79 Sex: Female Arrives Via: Ambulance Informant: Patient, Son, EMS ED Provider: José Antonio Kaye MD Chief Complaint: Hip pain Impression: As per impressions above Medical Decision Making: Pleasant 79-year-old female arrives for evaluation of left-sided hip pain. Patient tripped fell landing on left hip. No other significant injuries by examination. Fentanyl used for pain control. X-ray reveals left hip fracture. No indication for CT head or cervical spine. Isolated hip fracture thus hospitalization here makes sense. Medical workup ordered. She does have mild hypoglycemia though is asymptomatic. Hospitalist consulted for further management and clearance prior to orthopedic intervention. I do not feel this is consistent with nonmechanical fall given she clearly recalls what events led to this. Triage/Nursing Notes reviewed by Me External Chart Review by me: PCP note from 02/26/2025 reviewing patient's past medical history. Differential:Fracture, dislocation, hematoma, neurovascular injury, nonmechanical fall, multiple other pathologies considered Vital Signs: reviewed and remarkable for no significant abnormalities Interventions: Fentanyl IV, Dilaudid IV, Zofran IV Labs:ED labs Reviewed by me and remarkable for mild hyperglycemia Imagin view left hip with pelvis reveals an intertrochanteric left hip fracture into the neck as per my interpretation. 1 view chest x-ray as per my interpretation bilateral chronic lung disease without evidence of lobar infiltrate nor significant effusion. EKG:As per my interpretation. Fall. Normal sinus rhythm at 67 bpm QTc of 464. There is no ectopy nor ischemia. Compared to September 11, 2024 EKG there is no significant change. Cardiac/Tele Monitoring: Cardiac Monitoring: An Order was placed for continuous cardiac monitoring. The monitor shows a rate of 60 with a normal sinus rhythm. Consults:Discussed with Dr. Mercado of the [facility] who will further evaluate and manage. Plan: Disposition:Hospitalization. Condition: Good History of Present Illness: 79-year-old female arrives for evaluation of hip pain. Patient notes she was walking a few hours ago and her room when she tripped and fell over her cane. Landed awkwardly under her desk. Did not strike her head or neck. She notes immediate left hip pain. Unable to move the left leg. Laid on the ground for about an hour or 2 before EMS was able to get to her and then bring her into the ER. Patient notes primarily just the left hip pain. She has some mild right hip pain as well. Denies any chest pain, shortness of breath, headache, neck pain abdominal pain or other concerning signs or symptoms. No inciting event. Denies frequent falls. She frequently does use a cane though for steadiness. She uses oxygen at times when ambulating but denies needing to use it increased recently. She did receive 50 of fentanyl prior to arrival with initial improvement though pain is started to return. Patient makes clear she does not take any blood thinners. She did strike her left hand but denies significant pain in this location. Past Medical History:See Below Home Medications:See Below Allergies:nkda Vitals:Blood Pressure: 112/51, Pulse 64, RR 16, T 36.5C, O2 99% on 2L NC Physical Exam: Primary and secondary surveys completed as per ATLS by me. Cervical spine was cleared by me on my initial evaluation. GENERAL: Patient is uncomfortable appearing and in mild distress. Lay on left side RESPIRATORY: No dyspnea. Clear to auscultation and equal bilaterally. CARDIOVASCULAR: Regular rate and rhythm.No murmur appreciated. GASTROINTESTINAL: Abdomen soft, non-tender, no peritonitis. BACK: No midline tenderness, no CVA tenderness EXTREMITIES: Pain over left hip with palpation. Shortened left hip. Pelvis stable. Otherwise normal motion all extremities, no cyanosis, no edema. PVD NEUROLOGIC: Alert and oriented. No focal neurologic deficits appreciated SKIN: No rash, no jaundice, no diaphoresis. PSYCH: Appropriate GCS: 15 ED Course: Times/Reassessments: stable, improved pain with iv meds. José Antonio Kaye MD Past Med/Surg History Problem List (Updated 03/09/25 @ 05:14 by José Antonio Kaye MD) Ground-level fall (Acute) Closed fracture of left hip (Acute) Osteoporotic hip fracture Chronic prescription opiate use Hypertension Tobacco abuse (Chronic) Exercise hypoxemia Right upper lobe pulmonary nodule Lung nodule Sacroiliitis Left upper lobe pulmonary nodule Scoliosis of thoracolumbar spine Neuroforaminal stenosis of lumbar spine Coronary artery calcification seen on CAT scan Esophageal dysphagia Chronic neck and back pain Hyperactivity of bladder (Acute) Impaired fasting glucose (Acute) 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 Scoliosis Osteoporosis Medical History Vitamin D deficiency Cigarette smoker Transaminitis 04/01/24 Multiple pulmonary nodules determined by computed tomography of lung Paresthesia of right lower extremity Barretts esophagus Hypothyroidism Hypercholesteremia COPD (chronic obstructive pulmonary disease) inhalers/nebulizers daily and prn 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 COPD (chronic obstructive pulmonary disease) inhalers/nebulizers daily and prn Osteoporosis Hypercholesteremia HTN (hypertension) 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 Barretts esophagus Coronary artery calcification seen on CAT scan Scoliosis of thoracolumbar spine Multiple pulmonary nodules GERD (gastroesophageal reflux disease) History of stomach ulcers Anemia pt not aware Cardiac murmur no gallery host History of angina Emphysema lung Surgical History History of dilatation and curettage x2 History of open reduction and internal fixation (ORIF) procedure R pinky--hardware removed History of colonoscopy last 2017 History of esophagogastroduodenoscopy (EGD) last 11/2022 History of total abdominal hysterectomy and bilateral salpingo-oophorectomy 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[facility] [place] d/t colon cancer History of tooth extraction all teeth removed History of tonsillectomy History of bilateral cataract extraction Hx of appendectomy History of cholecystectomy Family History Son Type 1 diabetes mellitus Father Myocardial infarction Mother Aneurysm of aortic arch Sister Rheumatoid arthritis Leukemia Mantle cell lymphoma Unknown Thyroid disorder Sister Cancer Other No family history of adverse response to anesthesia Denies family history of Ovarian cancer Prostate cancer Breast cancer Colorectal cancer Social History Smoking Status: Current some day smoker Tobacco Type: Cigarettes Age Started Using Tobacco: 20; packs per day: 0.25; Cigarettes Per Day: 3-4 a day (advised on policy); Second Hand Exposure: No; Do You Dip or Chew Tobacco: No; Hx Alcohol Use: No Hx Substance Use: No Preferred Language: Albanian Communication Ability: Effective Visual Impairment: No Limitations Hearing Ability: Normal Houseman Required: No Beliefs That Will Affect Care: None marital status: Single Current Living Situation: Other Current Living Situation Comment: has aide come in current occupational status: retired 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, 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) Other Information That Helps Us Care for You: Yes Feels Safe at Home: Yes Safety Concerns: Feels Safe At This Time Childhood Exposure to Second-Hand Smoke: Yes Diet: regular caffeine: No Dental Care, Regularly: No Physical Activity Frequency: Daily Seatbelt Use: always Sunscreen Use: Yes Assistive Devices: Cane and Walker Allergies Allergies Allergy/AdvReac Type Severity Reaction Status Date / Time epoxy resin Allergy Intermediate rash, get Verified 02/26/25 14:01 very sick Home Meds Home Medications Medication Instructions Recorded Confirmed acetaminophen 325 mg tablet 325 mg PO Q6H PRN Pain 06/07/19 03/09/25 magnesium oxide 400 mg PO QAM 10/08/23 03/09/25 ondansetron HCl 4 mg tablet 4 mg PO Q6H 09/25/24 03/09/25 bupropion HCl 300 mg 24 hr tablet, 300 mg PO QAM 03/09/25 03/09/25 extended release losartan 25 mg tablet (Cozaar) 25 mg PO .DAILY ON HOLD 03/09/25 03/09/25 Previous Rx's Medication Instructions Recorded octreotide,microspheres 20 mg 20 mg IM MONTHLY #1 ea 04/30/23 intramuscular susp, extended release ipratropium 0.5 mg-albuterol 3 mg 3 ml NEB Q4 PRN sob #180 mL 05/25/23 (2.5 mg base)/3 mL nebulization soln fluticasone propionate 50 2 spray intranasal QAM #11.1 mL 11/30/23 mcg/actuation nasal spray,suspension (Flonase Allergy Relief) albuterol sulfate 90 mcg/actuation 2 puff inhalation Q4H PRN 03/15/24 aerosol inhaler (Ventolin HFA) Shortness Of Breath #18 grams fluticasone fur. 100 mcg-umeclid 1 inh inhalation QAM #60 ea 07/19/24 62.5 mcg-vilant 25 mcg inhalat.powder (Trelegy Ellipta) hydrocodone 5 mg-acetaminophen 325 1 tab PO Q6H PRN Pain #30 tabs 09/17/24 mg tablet nebulizer accessories (EZ Twist #10 ea 07/26/24 Tubing [facility] [place]) levothyroxine 75 mcg tablet 75 mcg PO DAILY 90 days #90 tabs 09/06/24 pantoprazole 40 mg tablet,delayed 40 mg PO QAM #30 tabs 10/30/24 release Portable Oxygen #1 ea 11/10/24 rosuvastatin 40 mg tablet (Crestor) 40 mg PO HS #90 tabs 11/20/24 cyclobenzaprine 10 mg tablet 10 mg PO TID PRN muscle spasm #90 12/04/24 tabs Results & Data (ED) Vital Signs Vital Signs - 24 hr 03/08/25 22:10 03/09/25 00:03 Temperature 36.5 C Temperature Source Oral Pulse Rate 64 Pulse Rate [Right] 69 Pulse Rhythm [Right] Regular Pulse Strength [Right] Normal Respiratory Rate 16 18 Respiratory Effort / Characteristics Non-Labored Spontaneous Non-Labored Spontaneous Respiratory Depth Normal Normal Blood Pressure 112/51 L Blood Pressure [Right Arm] 114/57 L Blood Pressure Mean 71 Blood Pressure Mean [Right Arm] 76 Blood Pressure Position Lying Pulse Oximetry 99 100 Oxygen Delivery Method Nasal Cannula Nasal Cannula Oxygen Flow Rate 2 2 Sepsis Recent Fever Within 48 Hours No Sepsis New/Unexplained Change in Mental Status N/A Sepsis Action Taken by Nursing No Action Required Laboratory Data 03/08/25 22:17 03/08/25 22:17 Lab Results 03/08/25 03/08/25 Range/Units 22:17 23:39 WBC 7.25 (4.8-10.8) K/ul RBC 3.85 L (4.20-5.40) M/uL Hgb 11.4 L (12.0-16.0) g/dl Hct 35.2 L (37.0-47.0) % MCV 91.4 (80.0-100.0) fL MCH 29.6 (25.0-34.0) pg MCHC 32.4 (32.0-36.0) g/dL RDW Std Deviation 49.2 H (36.4-46.3) fL RDW Coeff of Nichole 14.7 H (11.5-14.5) % Plt Count 112 L (130-400) K/uL MPV 11.1 (9.4-12.4) fL Immature Gran % (Auto) 0.3 % Neut % (Auto) 52.4 % Lymph % (Auto) 34.2 % [place] % (Auto) 9.9 % Eos % (Auto) 2.6 % Baso % (Auto) 0.6 % Neut # (Auto) 3.80 (1.40-6.50) K/uL Lymph # (Auto) 2.48 (1.20-3.40) K/uL [place] # (Auto) 0.72 H (0.11-0.59) K/uL Eos # (Auto) 0.19 (0.00-0.50) K/uL Baso # (Auto) 0.04 (0.00-0.20) K/uL Immature Gran # (Auto) 0.02 (0.01-0.20) K/uL PT 11.9 (9.0-12.0) Seconds INR 1.1 (0.9-1.1) Sodium 139 (136-145) mmol/L Potassium 3.5 (3.5-5.1) mmol/L Chloride 107 (98-107) mmol/L Carbon Dioxide 26 (21-32) mmol/L Anion Gap 6 (3-11) BUN 17 (6-23) mg/dl Creatinine 0.98 (0.6-1.2) mg/dl Est Cr Clr Drug Dosing 38.0 ml/min eGFR 59.45 BUN/Creatinine Ratio 17.3 (10-20) Glucose 57 L (70-99(Fasting)) mg/dl Calcium 8.3 L (8.6-10.3) mg/dl Magnesium 1.9 (1.7-2.4) mg/dl Total Bilirubin 0.6 (0.2-1.0) mg/dl Direct Bilirubin 0.1 (0-0.2) mg/dl AST 33 (13-39) U/L ALT 23 (7-52) U/L Alkaline Phosphatase 63 (34-104) U/L Total Creatine Kinase 67 (26-192) U/L Troponin I High Sens 7.8 (0-14) pg/ml Total Protein 6.1 (6.0-8.3) gm/dl Albumin 3.5 (3.4-5.0) gm/dl TSH 9.806 H (0.300-4.500) uIu/ml Free T4 0.88 (0.61-1.60) ng/dl Urine Color Yellow Urine Appearance Clear (Clear) Urine pH 5.5 (4.5-7.5) Ur Specific [place] 1.021 (1.000-1.030) Urine Protein 1+ H (Negative) Urine Glucose (UA) Negative (Negative) Urine Ketones Trace H (Negative) Urine Blood Negative (Negative) Urine Nitrite Negative (Negative) Urine Bilirubin Negative (Negative) Urine Urobilinogen Negative (Negative) Ur Leukocyte Esterase Negative (Negative) Urine WBC (Auto) 0-5 (0-5) /hpf Urine RBC (Auto) 0-2 (0-2) /hpf U Hyaline Cast (Auto) 0-2 (0-2) /lpf U Epithel Cells (Auto) 0-2 (0-2) /hpf Urine Bacteria (Auto) None Seen (None Seen) Calcium Oxalate Crystal Present A (None Prsent) Administered Medications Hydromorphone HCl (Hydromorphone Inj 0.5 Mg/0.5 Ml Syr) 0.5 mg IV Q3H PRN PRN Reason: Pain (6,7,8,9,10) Stop: 03/23/25 00:37 Last Admin: 03/09/25 03:47 Dose: 0.5 mg Documented By: ROBBIE Lactated Ringer's (Lr) 1,000 mls @ 80 mls/hr IV .[id number] [facility] Stop: 03/12/25 00:44 Last Admin: 03/09/25 01:27 Dose: 80 mls/hr Documented By: RADHA Ondansetron HCl (Ondansetron Inj 2 Mg/Ml 2 Ml Vial) 4 mg IV Q6H PRN PRN Reason: Nausea And Vomiting Stop: 04/08/25 00:37 Last Admin: 03/09/25 04:12 Dose: 4 mg Documented By: ROBBIE Discontinued Medications Fentanyl Citrate (Fentanyl Citrate Pf 100 Mcg/2 Ml Vial) 50 mcg IV NOW STA Stop: 03/08/25 23:05 Last Admin: 03/08/25 23:07 Dose: 50 mcg Documented By: RADHA Hydromorphone HCl (Hydromorphone Inj 0.5 Mg/0.5 Ml Syr) 0.25 mg IV NOW STA Stop: 03/08/25 23:44 Last Admin: 03/08/25 23:48 Dose: 0.25 mg Documented By: RADHA Acetaminophen (Ofirmev) 1,000 mg in 100 mls @ 400 mls/hr IV NOW STA Stop: 03/08/25 23:57 Last Infusion: 03/09/25 00:06 Dose: Infused Documented By: Admin: 03/08/25 23:48 Dose: 400 mls/hr Documented By: RADHA Ondansetron HCl (Ondansetron Inj 2 Mg/Ml 2 Ml Vial) 4 mg IV NOW STA Stop: 03/08/25 23:05 Last Admin: 03/08/25 23:07 Dose: 4 mg Documented By: RADHA Imaging Data Radiologist's Impression: Hip/Pelvis X-Ray 03/08/25 22:29 Exam(s): XR HIP + PELVIS, 1 view EXAM: XR Left Hip With Pelvis, 3 Views CLINICAL HISTORY: Hip trauma, fracture suspected, no prior imaging. TECHNIQUE: Three views of the left hip with pelvis. COMPARISON: CT pelvis 10/26/2024. FINDINGS: Bones are osteopenic. Acute impacted intertrochanteric and neck fracture through the proximal left femur with varus angulation of the distal fracture fragment. Left femoral head and acetabulum appear intact. No other fracture identified. Degenerative changes of the lumbar spine are present. Abundant stool throughout the colon. IMPRESSION: Acute impacted intertrochanteric and neck fracture through the proximal left femur with varus angulation of the distal fracture fragment. Electronically signed by: Manuelito Mtz M.D. 03/09/25 02:33 AM Chest X-Ray 03/08/25 23:36 Exam(s): XR CXR 1 VIEW EXAM: XR Chest, 1 View CLINICAL HISTORY: chest pain. TECHNIQUE: Frontal view of the chest. COMPARISON: CT chest 02-15-2025. FINDINGS: Heart is normal size. Lungs are hyperinflated. Mild diffuse interstitial prominence. Previously demonstrated lung nodules on CT are not distinctly visualized. No pleural effusion or pneumothorax. Bones are osteopenic. Degenerative changes of the thoracic spine. IMPRESSION: Hyperinflation. Interstitial lung disease. Previously demonstrated lung nodules on CT are not distinctly visualized. Electronically signed by: Manuelito Mtz M.D. 03/09/25 02:35 AM Discharge Plan Visit Data Chief Complaint: Hip Pain Stated Complaint: Fall, Bilateral Hip Pain ED Provider: José Antonio Kaye Discharge Problem: Closed fracture of left hip, Ground-level fall Patient Disposition: Admitted As Inpatient Condition: Critical Discharge Instructions Interventions: ED Discharge Assessment Last Done: 03/09/25 01:55 Discharge Problem: Closed fracture of left hip Qualifiers: Encounter type: initial encounter Qualified Code(s): S72.002A - Fracture of unspecified part of neck of left femur, initial encounter for closed fracture
[2025-03-08] MEDS: fentaNYL citrate PF 100 MCG/2 ML VIAL IV STA (23:07)
[2025-03-08] MEDS: ONDANSETRON INJ 2 MG/ML 2 ML VIAL IV STA (23:07)
[2025-03-08] MEDS: HYDROmorphone INJ 0.5 MG/0.5 ML SYR IV STA (23:48)
[2025-03-08] MEDS: ACETAMINOPHEN 1,000 MG/100 ML VIAL IV STA (23:48)
[2025-03-09 00:07] LABS: Basophils # (auto) 0.04 K/uL (0.00-0.20); Basophils % (auto) 0.6 %; Eosinophils # (auto) 0.19 K/uL (0.00-0.50); Eosinophils % (auto) 2.6 %; Hematocrit (blood only) 35.2 % (37.0-47.0); Hemoglobin 11.4 g/dl (12.0-16.0); Immature Granulocytes # (auto) 0.02 K/uL (0.01-0.20); Immature Granulocytes % (auto) 0.3 %; Lymphocytes # (auto) 2.48 K/uL (1.20-3.40); Lymphocytes % (auto) 34.2 %; Mean Corpuscular Hemoglobin 29.6 pg (25.0-34.0); Mean Corpuscular Hgb Conc 32.4 g/dL (32.0-36.0); Mean Corpuscular Volume 91.4 fL (80.0-100.0); Mean Platelet Volume 11.1 fL (9.4-12.4); Monocytes # (auto) 0.72 K/uL (0.11-0.59); Monocytes % (auto) 9.9 %; Neutrophils % (auto) 52.4 %; Platelet Count 112 K/uL (130-400); RDW Coefficient of Variation 14.7 % (11.5-14.5); RDW Standard Deviation 49.2 fL (36.4-46.3); Red Blood Count 3.85 M/uL (4.20-5.40); White Blood Count 7.25 K/ul (4.8-10.8)
--- NOTE | 2025-03-09 00:13 | History & Physical Report ---
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 ED evaluation reveals no leukocytosis, H&H 11.4/35.2; PT/INR WNL; CMP with glucose 57, calcium 8.3; CK 67; troponin 7.8; TSH 9.86, pending free T4; UA with some protein and ketones but no infection; hip/pelvis XR acute impacted intertrochanteric and neck fracture through proximal L femur, varus angulation of distal fracture fragment; CXR hyperinflation, ILD, nodule not visualized; EKG NSR, 67 bpm.; Provided with Zofran 4 mg IV, Jackson morphine 0.25 mg IV, fentanyl citrate 50 mcg IV, and acetaminophen 1 g IV in ED. #Osteoporotic hip fracture Pt presenting for GLF, landing on L hip and on ground ~ 2 hours; current complaint some L hip pain, increased with any movement. 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 ? contributing factor to fall, but patient assures that it was mechanical in nature. - Glucose 57 - Hypoglycemia protocol ordered - BSG q4hr #COPD/tobacco use H/o COPD, 1L with exertion, 2L O2 at night per baseline. Follows with pulmonology, most recent visit 02/23/2025. >[id number] smoking history - CXR hyperinflation, ILD, nodule not visualized (from prior CT) - No evidence of exacerbation today - Continue home meds Trelegy, albuterol, DuoNebs as needed - Wellbutrin 400 mg for tobacco abuse, patches- patiently actively trying to stop #Hypothyroidism-TSH 1.86, pending free T4; thyroxine #HTN- Currently holding losartan per PCP (02/26/2025) #HLD- Crestor #GERD/Vu's- Pantoprazole #OP- Fosamax #Neuroendocrine tumor- S/p resection 2011, octreotide HOLD po meds while NPO. Dispo: Admit, med/sx VTE Prophylaxis: SCDs This document was dictated utilizing Endoclear. Please excuse any grammatical errors that may be secondary to use of this software. 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 States that she was using her rolling walker when it got caught under her feet and she tripped over it. Landed on her left side, did not hit anything other than her hip. Denying symptoms prior to the fall to include chest pain, shortness of breath, numbness or tingling, or weakness. Patient laid on the ground for approximately 2 hours and was unable to get herself up. No known LOC. Patient states that she has had falls before, but did not have any symptoms prior to this 1. Complaining of improved L hip pain, but no tingling in the leg. Did have some nausea with vomiting following pain med administration, but no abdominal pain. No headaches or vision changes. Denying chest pain, shortness of breath, palpitations, abdominal pain, D/C, URI symptoms, fever/chills, LUTS, or LOC. 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 Patient does not take any blood thinners. Again, did not hit head. ED evaluation reveals no leukocytosis, H&H 11.4/35.2; PT/INR WNL; CMP with glucose 57, calcium 8.3; CK 67; troponin 7.8; TSH 9.86, pending free T4; UA with some protein and ketones but no infection; hip/pelvis XR acute impacted intertrochanteric and neck fracture through proximal L femur, varus angulation of distal fracture fragment; CXR hyperinflation, ILD, nodule not visualized; EKG NSR, 67 bpm.; Provided with Zofran 4 mg IV, Jackson morphine 0.25 mg IV, fentanyl citrate 50 mcg IV, and acetaminophen 1 g IV in ED. Please see Dr. Mercado's attestation for adjustments/additions to treatment plan. Allergies Allergy/AdvReac Type Severity Reaction Status Date / Time epoxy resin Allergy Intermediate rash, get Verified 02/26/25 14:01 very sick Home Medications Medication Instructions Recorded Confirmed Type acetaminophen 325 mg tablet 325 mg PO Q6H PRN Pain 06/07/19 03/09/25 History octreotide,microspheres 20 mg 20 mg IM MONTHLY #1 ea 04/30/23 03/09/25 Rx intramuscular susp, extended release ipratropium 0.5 mg-albuterol 3 mg 3 ml NEB Q4 PRN sob #180 mL 05/25/23 03/09/25 Rx (2.5 mg base)/3 mL nebulization soln magnesium oxide 400 mg PO QAM 10/08/23 03/09/25 History fluticasone propionate 50 2 spray intranasal QAM #11.1 mL 11/30/23 03/09/25 Rx mcg/actuation nasal spray,suspension (Flonase Allergy Relief) albuterol sulfate 90 mcg/actuation 2 puff inhalation Q4H PRN 03/15/24 03/09/25 Rx aerosol inhaler (Ventolin HFA) Shortness Of Breath #18 grams fluticasone fur. 100 mcg-umeclid 1 inh inhalation QAM #60 ea 07/19/24 03/09/25 Rx 62.5 mcg-vilant 25 mcg inhalat.powder (Trelegy Ellipta) hydrocodone 5 mg-acetaminophen 325 1 tab PO Q6H PRN Pain #30 tabs 07/25/24 03/09/25 Rx mg tablet nebulizer accessories (EZ Twist #10 ea 07/26/24 03/09/25 Rx Tubing misc) levothyroxine 75 mcg tablet 75 mcg PO DAILY 90 days #90 tabs 09/06/24 03/09/25 Rx ondansetron HCl 4 mg tablet 4 mg PO Q6H 11/18/24 05/02/25 History pantoprazole 40 mg tablet,delayed 40 mg PO QAM #30 tabs 10/30/24 03/09/25 Rx release Portable Oxygen #1 ea 11/10/24 03/09/25 Rx rosuvastatin 40 mg tablet (Crestor) 40 mg PO HS #90 tabs 11/20/24 03/09/25 Rx cyclobenzaprine 10 mg tablet 10 mg PO TID PRN muscle spasm #90 12/04/24 03/09/25 Rx tabs bupropion HCl 300 mg 24 hr tablet, 300 mg PO QAM 03/09/25 03/09/25 History extended release losartan 25 mg tablet (Cozaar) 25 mg PO .DAILY ON HOLD 03/09/25 03/09/25 History Past Med/Surg History Problem List (Updated 03/09/25 @ 05:14 by José Antonio Kaye MD) Ground-level fall (Acute) Closed fracture of left hip (Acute) Osteoporotic hip fracture Chronic prescription opiate use Hypertension Tobacco abuse (Chronic) Exercise hypoxemia Right upper lobe pulmonary nodule Lung nodule Sacroiliitis Left upper lobe pulmonary nodule Scoliosis of thoracolumbar spine Neuroforaminal stenosis of lumbar spine Coronary artery calcification seen on CAT scan Esophageal dysphagia Chronic neck and back pain Hyperactivity of bladder (Acute) Impaired fasting glucose (Acute) 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 Scoliosis Osteoporosis Medical History Vitamin D deficiency Cigarette smoker Transaminitis 04/01/24 Multiple pulmonary nodules determined by computed tomography of lung Paresthesia of right lower extremity Barretts esophagus Hypothyroidism Hypercholesteremia COPD (chronic obstructive pulmonary disease) inhalers/nebulizers daily and prn 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 COPD (chronic obstructive pulmonary disease) inhalers/nebulizers daily and prn Osteoporosis Hypercholesteremia HTN (hypertension) 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 Barretts esophagus Coronary artery calcification seen on CAT scan Scoliosis of thoracolumbar spine Multiple pulmonary nodules GERD (gastroesophageal reflux disease) History of stomach ulcers Anemia pt not aware Cardiac murmur no dynamic etching processor History of angina Emphysema lung Surgical History History of dilatation and curettage x2 History of open reduction and internal fixation (ORIF) procedure R pinky--hardware removed History of colonoscopy last 2017 History of esophagogastroduodenoscopy (EGD) last 11/2022 History of total abdominal hysterectomy and bilateral salpingo-oophorectomy 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[facility] [place] History of tooth extraction all teeth removed History of tonsillectomy History of bilateral cataract extraction Hx of appendectomy History of cholecystectomy Family History Son Type 1 diabetes mellitus Father Myocardial infarction Mother Aneurysm of aortic arch Sister Rheumatoid arthritis Leukemia Mantle cell lymphoma Unknown Thyroid disorder Sister Cancer Other No family history of adverse response to anesthesia Denies family history of Ovarian cancer Prostate cancer Breast cancer Colorectal cancer Social History Smoking Status: Current some day smoker Tobacco Type: Cigarettes Age Started Using Tobacco: 20; packs per day: 0.25; Cigarettes Per Day: 3-4 a day (advised on policy); Second Hand Exposure: No; Do You Dip or Chew Tobacco: No; Hx Alcohol Use: No Hx Substance Use: No Preferred Language: Uzbek Communication Ability: Effective Visual Impairment: No Limitations Hearing Ability: Normal Driller And Broacher Required: No Beliefs That Will Affect Care: None marital status: Single Current Living Situation: Other Current Living Situation Comment: has aide come in current occupational status: retired 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, 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) Other Information That Helps Us Care for You: Yes Feels Safe at Home: Yes Safety Concerns: Feels Safe At This Time Childhood Exposure to Second-Hand Smoke: Yes Diet: regular caffeine: No Dental Care, Regularly: No Physical Activity Frequency: Daily Seatbelt Use: always Sunscreen Use: Yes Assistive Devices: Cane and Walker Review of Systems Review of Systems: All systems reviewed & are unremarkable except as noted in Subjective Physical Exam Physical Exam: General: No acute distress Skin: Warm and dry; varicose veins bilaterally (LE) Head: Normocephalic, atraumatic Eyes: PERRL, conjunctivae clear, sclera non-icteric; wearing glasses ENT: External ear and ear canal without swelling; nose atraumatic; no teeth, tongue normal appearance, pharynx normal Neck: Supple, no LAD Cardio: RRR, no M/G/R, S1 and S2 normal Resp: No respiratory distress, Lungs CTA in all lobes bilaterally, no wheezes, rales, or rhonchi Abdomen: Soft, symmetric, nontender; No masses or hepatosplenomegaly; Bowel sounds normoactive MSK: LLE shortened, no ecchymosis noted; pulses palpable and equal; no edema. Neuro: Awake, alert; Sensation intact bilaterally; CN grossly intact Psych: Appropriate mood and affect; good judgement and insight. Son present in room at time of visit. Results & Data Results & Data Vital Signs (Past 12 Hours) Vital Signs Temp Pulse Pulse Resp BP BP Pulse Ox 03/09/25 00:03 69 18 114/57 L 100 03/08/25 22:10 36.5 C 64 16 112/51 L 99 O2 Del Method O2 Flow Rate 03/09/25 00:03 Nasal Cannula 2 03/08/25 22:10 Nasal Cannula 2 Laboratory Results 03/08/25 03/08/25 23:39 22:17 WBC 7.25 RBC 3.85 L Hgb 11.4 L Hct 35.2 L MCV 91.4 MCH 29.6 MCHC 32.4 RDW Std Deviation 49.2 H RDW Coeff of Nichole 14.7 H Plt Count 112 L MPV 11.1 Immature Gran % (Auto) 0.3 Neut % (Auto) 52.4 Lymph % (Auto) 34.2 Leake % (Auto) 9.9 Eos % (Auto) 2.6 Baso % (Auto) 0.6 Neut # (Auto) 3.80 Lymph # (Auto) 2.48 Leake # (Auto) 0.72 H Eos # (Auto) 0.19 Baso # (Auto) 0.04 Immature Gran # (Auto) 0.02 PT 11.9 INR 1.1 Sodium 139 Potassium 3.5 Chloride 107 Carbon Dioxide 26 Anion Gap 6 BUN 17 Creatinine 0.98 Est Cr Clr Drug Dosing 38.0 eGFR 59.45 BUN/Creatinine Ratio 17.3 Glucose 57 L Calcium 8.3 L Magnesium 1.9 Total Bilirubin 0.6 Direct Bilirubin 0.1 AST 33 ALT 23 Alkaline Phosphatase 63 Total Creatine Kinase 67 Troponin I High Sens 7.8 Total Protein 6.1 Albumin 3.5 TSH 9.806 H Urine Color Yellow Urine Appearance Clear Urine pH 5.5 Ur Specific [employer] [place] 1.021 Urine Protein 1+ H Urine Glucose (UA) Negative Urine Ketones Trace H Urine Blood Negative Urine Nitrite Negative Urine Bilirubin Negative Urine Urobilinogen Negative Ur Leukocyte Esterase Negative Urine WBC (Auto) 0-5 Urine RBC (Auto) 0-2 U Hyaline Cast (Auto) 0-2 U Epithel Cells (Auto) 0-2 Urine Bacteria (Auto) None Seen Calcium Oxalate Crystal Present A Medications Administered Ondansetron 4 mg IV Hydromorphone 0.25 mg IV Fentanyl citrate 50 mcg IV Acetaminophen 1 g IV ECG Additional Comments: NSR 67 bpm, CA 192, QRS 88, QT/QTc 440/464, PRT 82/49/74 Code Status & VTE Plan Code Status Full Supervising Physician Co-Signing Physician Notes I personally saw and examined the patient. I independently reviewed the labs, EKG, imaging, problem list, medication list, past medical history and family history. I verified all sharma points and agree with Sarai Holguin PA-C with the following exceptions and/or additions: 79 year old female presents to the ER with left hip pain following a fall. Feeling well prior to fall. Known osteoporosis. O/E HS RRR, no murmurs, Chest CTAB, Abdo SNT, left leg contracted, DP/PT pulses intact, normal sensation in toes A/P Osteoporotic hip fracture - routine acetaminophen, IV Dilaudid PRN, NPO, IV fluids, consult orthopedics for surgical fixation PG Care Time/CCT Total # of Minutes Spent Total Time Spent with Patient: Total time spent is greater than 50% in coordination of care (as documented) at patient's floor/unit and/or counseling patient: Coding Level of Care Code 39701 INT INP/OBS CARE 3/75MIN Diagnoses Osteoporotic hip fracture M80.059A COPD (chronic obstructive pulmonary disease) J44.9 COPD type: unspecified COPD (2) COPD (chronic obstructive pulmonary disease) COPD type: unspecified COPD Qualified Code(s): J44.9 - Chronic obstructive pulmonary disease, unspecified
[2025-03-09 00:15] LABS: Albumin Level 3.5 gm/dl (3.4-5.0); BUN Creatinine Ratio 17.3 (10-20); Bilirubin Direct 0.1 mg/dl (0-0.2); Bilirubin,Total 0.6 mg/dl (0.2-1.0); Calcium 8.3 mg/dl (8.6-10.3); Magnesium 1.9 mg/dl (1.7-2.4); Potassium 3.5 mmol/L (3.5-5.1); Total Protein 6.1 gm/dl (6.0-8.3)
[2025-03-09 00:22] LABS: Troponin I High Sensitivity 7.8 pg/ml (0-14)
[2025-03-09 00:24] LABS: Appearance Urine Clear (Clear); Bacteria Urine Automated None Seen (None Seen); Bilirubin Urine Negative (Negative); Blood Urine Negative (Negative); Calcium Oxalate Crystals Urine Present (None Prsent); Cast Urine Automated 0-2 /lpf (0-2); Color Urine Yellow; Epithelial Cell Urine Auto 0-2 /hpf (0-2); Glucose Urine UA Negative (Negative); Ketones Urine Trace (Negative); Leukocyte Esterase Urine Negative (Negative); Nitrite Urine Negative (Negative); Protein Urine 1+ (Negative); RBC Urine Automated 0-2 /hpf (0-2); Specific Gravity Urine 1.021 (1.000-1.030); Urobilinogen Urine Negative (Negative); WBC Urine Automated 0-5 /hpf (0-5); pH Urine 5.5 (4.5-7.5)
[2025-03-09 00:31] LABS: Thyroid Stimulating Hormone 9.806 uIu/ml (0.300-4.500)
[2025-03-09] MEDS ORDERED: HYDROmorphone INJ 0.5 MG/0.5 ML SYR IV PRN (00:38)
[2025-03-09 00:43] LABS: INR 1.1 (0.9-1.1); Prothrombin Time 11.9 Seconds (9.0-12.0)
[2025-03-09] MEDS ORDERED: DEXTROSE 50% 50 ML SYRINGE IV PRN ×2 (00:57→01:54)
[2025-03-09 01:06] LABS: T4 Free Thyroxine 0.88 ng/dl (0.61-1.60)
[2025-03-09] MEDS: LACTATED RINGER'S 1,000 ML IV SCH (01:27)
[2025-03-09] MEDS ORDERED: bisacodyL 10 MG SUPP PR PRN (01:54)
[2025-03-09] MEDS ORDERED: ALBUT/IPRATROP 3MG/0.5MG NEB 3 ML VIAL NEB PRN (01:54)
[2025-03-09] MEDS ORDERED: GLUCOSE 10 TAB/TUBE PO PRN (01:54)
[2025-03-09] MEDS ORDERED: CARBOHYDRATES FOR HYPOGLYCEMIA PO PRN (01:54)
[2025-03-09] MEDS ORDERED: MAGNESIUM HYDROXIDE SUSP 30 ML UDC PO PRN (01:54)
[2025-03-09] MEDS ORDERED: GLUCOSE 40% GEL 15 GM TUBE PO PRN (01:54)
[2025-03-09] MEDS ORDERED: GLUCAGON FOR INJ 1 MG VIAL SQ PRN (01:54)
[2025-03-09] MEDS ORDERED: NALOXONE HCL 0.4 MG/1 ML VIAL/CARP IV PRN (01:54)
--- NOTE | 2025-03-09 02:34 | XRay Report ---
Exam(s): XR HIP + PELVIS, 1 view EXAM: XR Left Hip With Pelvis, 3 Views CLINICAL HISTORY: Hip trauma, fracture suspected, no prior imaging. TECHNIQUE: Three views of the left hip with pelvis. COMPARISON: CT pelvis 10/26/2024. FINDINGS: Bones are osteopenic. Acute impacted intertrochanteric and neck fracture through the proximal left femur with varus angulation of the distal fracture fragment. Left femoral head and acetabulum appear intact. No other fracture identified. Degenerative changes of the lumbar spine are present. Abundant stool throughout the colon. IMPRESSION: Acute impacted intertrochanteric and neck fracture through the proximal left femur with varus angulation of the distal fracture fragment. Electronically signed by: Manuelito Mtz M.D. 03/09/25 02:33 AM
--- NOTE | 2025-03-09 02:36 | XRay Report ---
Exam(s): XR CXR 1 VIEW EXAM: XR Chest, 1 View CLINICAL HISTORY: chest pain. TECHNIQUE: Frontal view of the chest. COMPARISON: CT chest 02-15-2025. FINDINGS: Heart is normal size. Lungs are hyperinflated. Mild diffuse interstitial prominence. Previously demonstrated lung nodules on CT are not distinctly visualized. No pleural effusion or pneumothorax. Bones are osteopenic. Degenerative changes of the thoracic spine. IMPRESSION: Hyperinflation. Interstitial lung disease. Previously demonstrated lung nodules on CT are not distinctly visualized. Electronically signed by: Manuelito Mtz M.D. 03/09/25 02:35 AM
[2025-03-09] MEDS: HYDROmorphone INJ 0.5 MG/0.5 ML SYR IV PRN (03:47)
[2025-03-09] MEDS: ONDANSETRON INJ 2 MG/ML 2 ML VIAL IV PRN (04:12)
[2025-03-09] MEDS: ONDANSETRON INJ 2 MG/ML 2 ML VIAL IV STA (05:20)
[2025-03-09] MEDS: PROMETHAZINE 6.25 MG/50.25 ML BAG IV STA (05:58)
[2025-03-09] MEDS: LEVOTHYROXINE SODIUM 75 MCG TABLET PO SCH (06:37)
--- NOTE | 2025-03-09 07:38 | XRay Report ---
EXAM: XR femur LT 2V routine CLINICAL HISTORY: Eval entire bone TECHNIQUE: X-ray images of the left femur were obtained in anteroposterior (AP) and lateral projections. COMPARISON: No prior studies are available for comparison. FINDINGS: Bone Structure: Osteopenia. Comminuted intertrochanteric fractures in the left femur. The femoral shaft and distal regions are normal in structure and alignment. Joint and Articular Surfaces: Mild degenerative changes in the left hip joint. Soft Tissues: Soft tissue swelling along the left proximal femur. Vascular calcifications noted. IMPRESSION: 1. Osteopenia. 2. Comminuted intertrochanteric fractures in the left femur. 3. Mild degenerative changes in the left hip joint. Disclaimer: A subtle bone abnormality or fracture may not be readily apparent on X-rays. Clinical correlation and further imaging, including CT, MRI, or follow-up X-rays, are advised if clinically warranted. Electronically signed by Tiom Zuluaga 03-09-2025 07:37 AM
--- NOTE | 2025-03-09 08:09 | Anesthesiology Consultation ---
Date of Service March 09, 2025 Assessment & Plan Chart Review Chart Review: Acceptable Risk for Surgery and Patient NOT seen in Pre Admission Testing History Surgery Operation Date: 03/09/25 08:00 Proposed Procedures p Left Troch Nail - Lloyd Pemberton DO Height/Weight Height: 5 ft 2 in Weight: 54.2 kg Allergies Allergy/AdvReac Type Severity Reaction Status Date / Time epoxy resin Allergy Intermediate rash, get Verified 02/26/25 14:01 very sick Medications Home Medications Medication Instructions Recorded Confirmed Last Taken acetaminophen 325 mg tablet 325 mg PO Q6H PRN Pain 06/07/19 03/09/25 10/17/23 octreotide,microspheres 20 mg 20 mg IM MONTHLY #1 ea 04/30/23 03/09/25 07/05/24 intramuscular susp, extended release ipratropium 0.5 mg-albuterol 3 mg 3 ml NEB Q4 PRN sob #180 mL 05/25/23 03/09/25 3 Weeks Ago (2.5 mg base)/3 mL nebulization ~06/16/24 soln magnesium oxide 400 mg PO QAM 10/08/23 03/09/25 07/06/24 fluticasone propionate 50 2 spray intranasal QAM #11.1 mL 11/30/23 03/09/25 07/07/24 07:45 mcg/actuation nasal spray,suspension (Flonase Allergy Relief) albuterol sulfate 90 mcg/actuation 2 puff inhalation Q4H PRN 03/15/24 03/09/25 07/07/24 07:45 aerosol inhaler (Ventolin HFA) Shortness Of Breath #18 grams fluticasone fur. 100 mcg-umeclid 1 inh inhalation QAM #60 ea 07/19/24 03/09/25 Unknown 62.5 mcg-vilant 25 mcg inhalat.powder (Trelegy Ellipta) hydrocodone 5 mg-acetaminophen 325 1 tab PO Q6H PRN Pain #30 tabs 07/25/24 03/09/25 Unknown mg tablet nebulizer accessories (EZ Twist #10 ea 07/26/24 03/09/25 Unknown Tubing misc) levothyroxine 75 mcg tablet 75 mcg PO DAILY 90 days #90 tabs 09/06/24 03/09/25 Unknown ondansetron HCl 4 mg tablet 4 mg PO Q6H 09/25/24 03/09/25 Unknown pantoprazole 40 mg tablet,delayed 40 mg PO QAM #30 tabs 10/30/24 03/09/25 Unknown release Portable Oxygen #1 ea 11/10/24 03/09/25 Unknown rosuvastatin 40 mg tablet (Crestor) 40 mg PO HS #90 tabs 11/20/24 03/09/25 Unknown cyclobenzaprine 10 mg tablet 10 mg PO TID PRN muscle spasm #90 12/04/24 03/09/25 Unknown tabs bupropion HCl 300 mg 24 hr tablet, 300 mg PO QAM 03/09/25 03/09/25 Unknown extended release losartan 25 mg tablet (Cozaar) 25 mg PO .DAILY ON HOLD 03/09/25 03/09/25 Unknown Active Medications Generic Name Dose Route Start Last Admin Trade Name Freq PRN Reason Stop Dose Admin Hydromorphone HCl 0.5 mg 03/09/25 00:38 03/09/25 03:47 Hydromorphone Inj 0.5 Mg/0.5 Ml Syr IV 03/23/25 00:37 0.5 mg Q3H PRN Administration Pain (6,7,8,9,10) Lactated Ringer's 1,000 mls @ 80 mls/hr 03/09/25 00:45 03/09/25 01:27 Lr IV 03/12/25 00:44 80 mls/hr .[id number] MEERA Administration Levothyroxine Sodium 75 mcg 03/09/25 06:30 03/09/25 06:37 Levothyroxine Sodium 75 Mcg Tablet PO 04/08/25 06:29 75 mcg DAILYBB MEERA Administration Ondansetron HCl 4 mg 03/09/25 00:38 03/09/25 04:12 Ondansetron Inj 2 Mg/Ml 2 Ml Vial IV 04/08/25 00:37 4 mg Q6H PRN Administration Nausea And Vomiting Past Medical History Medical History Vitamin D deficiency Cigarette smoker Transaminitis 04/01/24 Multiple pulmonary nodules determined by computed tomography of lung Paresthesia of right lower extremity Barretts esophagus Hypothyroidism Hypercholesteremia COPD (chronic obstructive pulmonary disease) inhalers/nebulizers daily and prn 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 COPD (chronic obstructive pulmonary disease) inhalers/nebulizers daily and prn Osteoporosis Hypercholesteremia HTN (hypertension) 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 Barretts esophagus Coronary artery calcification seen on CAT scan Scoliosis of thoracolumbar spine Multiple pulmonary nodules GERD (gastroesophageal reflux disease) History of stomach ulcers Anemia pt not aware Cardiac murmur no legal support assistant History of angina Emphysema lung Past Family History Family History Son Type 1 diabetes mellitus Father Myocardial infarction Mother Aneurysm of aortic arch Sister Rheumatoid arthritis Leukemia Mantle cell lymphoma Unknown Thyroid disorder Sister Cancer Other No family history of adverse response to anesthesia Denies family history of Ovarian cancer Prostate cancer Breast cancer Colorectal cancer Past Surgical History Surgical History History of dilatation and curettage x2 History of open reduction and internal fixation (ORIF) procedure R pinky--hardware removed History of colonoscopy last 2017 History of esophagogastroduodenoscopy (EGD) last 11/2022 History of total abdominal hysterectomy and bilateral salpingo-oophorectomy 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[facility] [place] d/t colon cancer History of tooth extraction all teeth removed History of tonsillectomy History of bilateral cataract extraction Hx of appendectomy History of cholecystectomy Social History Smoking Status: Current some day smoker tobacco type: cigarettes Smoking cigarettes per day: 3-4 a day (advised on policy) Do You Dip or Chew Tobacco: No Hx Alcohol Use: No Hx Substance Use: No substance use type: does not use Physical Exam Vital Signs Last Vital Signs Temp 36.5 C 03/09/25 03:20 Pulse 72 03/09/25 07:06 Resp 20 03/09/25 05:58 BP 144/79 H 03/09/25 05:58 Pulse Ox 100 03/09/25 05:58 O2 Del Method Nasal Cannula 03/09/25 05:58 O2 Flow Rate 2 03/09/25 05:58 Testing Laboratory Results 03/08/25 22:17 03/08/25 22:17 PT 11.9 Seconds (9.0-12.0) 03/08/25 22:17 INR 1.1 (0.9-1.1) 03/08/25 22:17 Urine Color Yellow 03/08/25 23:39 Urine Appearance Clear (Clear) 03/08/25 23:39 Urine pH 5.5 (4.5-7.5) 03/08/25 23:39 Ur Specific [place] 1.021 (1.000-1.030) 03/08/25 23:39 Urine Protein 1+ (Negative) H 03/08/25 23:39 Urine Glucose (UA) Negative (Negative) 03/08/25: Urine Ketones Trace (Negative) H 03/08/25 23: Urine Nitrite Negative (Negative) 03/08/25 23:39 Ur Leukocyte Esterase Negative (Negative) 03/08/25 23:39 Urine WBC (Auto) 0-5 /hpf (0-5) 03/08/25 23:39 Urine RBC (Auto) 0-2 /hpf (0-2) 03/08/25 23:39 U Hyaline Cast (Auto) 0-2 /lpf (0-2) 03/08/25 23:39 U Epithel Cells (Auto) 0-2 /hpf (0-2) 03/08/25 23:39 Urine Bacteria (Auto) None Seen (None Seen) 03/08/25 23:39
--- NOTE | 2025-03-09 08:18 | CT Scan Report ---
EXAM: CT pelvis wo con CLINICAL HISTORY: preop planning TECHNIQUE: Contiguous axial CT images of pelvis were obtained without intravenous contrast. Coronal and sagittal reconstructions were likewise performed and indicated to increase the sensitivity for detecting clinically relevant pathology. CT scan was performed according to ALARA (as low as reasonable achievable). COMPARISON: None. FINDINGS: Diffuse osteopenia noted. Comminuted displaced fracture is noted involving intertrochanteric region of left femur. No destructive osseous lesion. The visualized muscles and tendons appear grossly unremarkable. No cortical destruction to suggest osteomyelitis. No abscess formation. No significant joint effusion. There are no soft tissue masses. Normal subcutaneous adipose space. Mild osteoporotic compression collapse of visualized lower lumbar vertebrae. Left iliopsoas muscle appears mildly bulky as compared to its counter part. IMPRESSION: 1. Diffuse osteopenia noted. 2. Comminuted displaced fracture is noted involving intertrochanteric region of left femur. Electronically signed by Jose L Egan 03-09-2025 08:17 AM
--- NOTE | 2025-03-09 08:43 | Orthopedic Consultation ---
Date of Consultation March 09, 2025 Assessment & Plan (1) Closed fracture of left hip: (2) Osteoporotic hip fracture: (3) Ground-level fall: (4) Chronic prescription opiate use: (5) Hypertension: (6) Tobacco abuse: (7) Right upper lobe pulmonary nodule: (8) Sacroiliitis: (9) Left upper lobe pulmonary nodule: (10) Scoliosis of thoracolumbar spine: (11) Coronary artery calcification seen on CAT scan: (12) Esophageal dysphagia: (13) Chronic neck and back pain: (14) Hyperactivity of bladder: (15) Impaired fasting glucose: (16) Primary malignant neuroendocrine tumor of ileum: (17) Scoliosis: (18) Osteoporosis: Plan This patient is a very medically frail 79-year-old female who presents to the emergency department after a ground-level fall complaining of left hip pain. The patient's history, physical exam, imaging findings are consistent with a left hip fracture. On careful review of the imaging, this does appear to be an intertrochanteric fracture with extension into the femoral neck. I had a very long discussion with the patient this morning regarding the nature of this injury. We discussed in great detail the pathoanatomy, pathophysiology, treatment options. I did express to the patient that given the significance of this fracture, my recommendation is for operative management. I discussed with her operative plan which would be for a cephalomedullary nail of her hip. I expressed to her that her fracture is somewhat atypical as it involves both the intertrochanteric and the femoral neck regions. I expressed to her that with or without surgery she is at a very high risk of avascular necrosis of the femoral head. I expressed to the patient there are risks associated with surgery. These risks include but are not limited to loss of life/limb, DVT, incomplete relief of pain, need for additional surgery, hardware complication, hardware failure, iatrogenic injury to bone/nerve/tendon/vessel, nonunion, malunion, hardware irritation, femoral head collapse, femoral head avascular necrosis. I expressed to the patient the alternatives to surgery which would include nonoperative care. Nonoperative care does carry with a higher risk of complications of immobilization including but not limited to DVT, decubitus ulcers, pneumonia. Also, in very clear terms, I expressed to the patient that in elderly patients after hip fracture, often times their level of mobility and independence decreases. Expressed to her that she may require more nursing care in the future and may not be nearly as ambulatory. Often times, after hip fracture, patients decreased 1 functional level of ambulation and if she is currently walking with a walker, she may not walk much after surgery. She expressed understanding to this. Through shared decision making model, after thorough discussion of risk, benefits, alternatives to surgical management, the patient is interested in pursuing surgery. Surgical plan: Open versus closed reduction and cephalomedullary nailing of the left hip Patient has been n.p.o. since midnight. We will plan to proceed to the operating room pending OR availability. I did discuss all of the above with the patient's sister and son as well. History of Present Illness Reason for Consultation: left hip pain Attending Physician: Ruslan Pizano MD History of Present Illness 79-year-old female PMHx HTN, hypothyroidism, HLD, GERD, hyperactive bladder, OP, COPD, tobacco abuse, and neuroendocrine carcinoma presenting s/p ground-level fall and complaining of L hip pain. States that she was using her rolling walker when it got caught under her feet and she tripped over it. Landed on her left side, did not hit anything other than her hip. Denying symptoms prior to the fall to include chest pain, shortness of breath, numbness or tingling, or weakness. Patient laid on the ground for approximately 2 hours and was unable to get herself up. No known LOC. Patient states that she has had falls before, but did not have any symptoms prior to this. Denying chest pain, shortness of breath, palpitations, abdominal pain, URI symptoms, fever/chills, or LOC. Patient does not take any blood thinners. On my evaluation with the patient this morning, she notes that the pain in her left hip is improving. She has no pain anywhere else. At baseline, she walks with the assistance of a walker and lives in an assisted Allergies Allergy/AdvReac Type Severity Reaction Status Date / Time epoxy resin Allergy Intermediate rash, get Verified 02/26/25 14:01 very sick Home Medications Medication Instructions Recorded Confirmed Type acetaminophen 325 mg tablet 325 mg PO Q6H PRN Pain 06/07/19 03/09/25 History octreotide,microspheres 20 mg 20 mg IM MONTHLY #1 ea 04/30/23 03/09/25 Rx intramuscular susp, extended release ipratropium 0.5 mg-albuterol 3 mg 3 ml NEB Q4 PRN sob #180 mL 05/25/23 03/09/25 Rx (2.5 mg base)/3 mL nebulization soln magnesium oxide 400 mg PO QAM 10/08/23 03/09/25 History fluticasone propionate 50 2 spray intranasal QAM #11.1 mL 11/30/23 03/09/25 Rx mcg/actuation nasal spray,suspension (Flonase Allergy Relief) albuterol sulfate 90 mcg/actuation 2 puff inhalation Q4H PRN 03/15/24 03/09/25 Rx aerosol inhaler (Ventolin HFA) Shortness Of Breath #18 grams fluticasone fur. 100 mcg-umeclid 1 inh inhalation QAM #60 ea 07/19/24 03/09/25 Rx 62.5 mcg-vilant 25 mcg inhalat.powder (Trelegy Ellipta) hydrocodone 5 mg-acetaminophen 325 1 tab PO Q6H PRN Pain #30 tabs 07/25/24 03/09/25 Rx mg tablet nebulizer accessories (EZ Twist #10 ea 07/26/24 03/09/25 Rx Tubing misc) levothyroxine 75 mcg tablet 75 mcg PO DAILY 90 days #90 tabs 09/06/24 03/09/25 Rx ondansetron HCl 4 mg tablet 4 mg PO Q6H 09/25/24 03/09/25 History pantoprazole 40 mg tablet,delayed 40 mg PO QAM #30 tabs 10/30/24 03/09/25 Rx release Portable Oxygen #1 ea 11/10/24 03/09/25 Rx rosuvastatin 40 mg tablet (Crestor) 40 mg PO HS #90 tabs 11/20/24 03/09/25 Rx cyclobenzaprine 10 mg tablet 10 mg PO TID PRN muscle spasm #90 12/04/24 03/09/25 Rx tabs bupropion HCl 300 mg 24 hr tablet, 300 mg PO QAM 03/09/25 03/09/25 History extended release losartan 25 mg tablet (Cozaar) 25 mg PO .DAILY ON HOLD 03/09/25 03/09/25 History Patient History Medical History Vitamin D deficiency Cigarette smoker Transaminitis 04/01/24 Multiple pulmonary nodules determined by computed tomography of lung Paresthesia of right lower extremity Barretts esophagus Hypothyroidism Hypercholesteremia COPD (chronic obstructive pulmonary disease) inhalers/nebulizers daily and prn 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 COPD (chronic obstructive pulmonary disease) inhalers/nebulizers daily and prn Osteoporosis Hypercholesteremia HTN (hypertension) 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 Barretts esophagus Coronary artery calcification seen on CAT scan Scoliosis of thoracolumbar spine Multiple pulmonary nodules GERD (gastroesophageal reflux disease) History of stomach ulcers Anemia pt not aware Cardiac murmur no staff auditor History of angina Emphysema lung Surgical History History of dilatation and curettage x2 History of open reduction and internal fixation (ORIF) procedure R pinky--hardware removed History of colonoscopy last 2017 History of esophagogastroduodenoscopy (EGD) last 11/2022 History of total abdominal hysterectomy and bilateral salpingo-oophorectomy 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[facility] [place]t colon cancer History of tooth extraction all teeth removed History of tonsillectomy History of bilateral cataract extraction Hx of appendectomy History of cholecystectomy Family History Son Type 1 diabetes mellitus Father Myocardial infarction Mother Aneurysm of aortic arch Sister Rheumatoid arthritis Leukemia Mantle cell lymphoma Unknown Thyroid disorder Sister Cancer Other No family history of adverse response to anesthesia Denies family history of Ovarian cancer Prostate cancer Breast cancer Colorectal cancer Social History Smoking Status: Current some day smoker Tobacco Type: Cigarettes Age Started Using Tobacco: 20; packs per day: 0.25; Cigarettes Per Day: 3-4 a day (advised on policy); Second Hand Exposure: No; Do You Dip or Chew Tobacco: No; Hx Alcohol Use: No Hx Substance Use: No Preferred Language: Spanish Communication Ability: Effective Visual Impairment: No Limitations Hearing Ability: Normal Horseshoer Required: No Beliefs That Will Affect Care: None marital status: Single Current Living Situation: Other Current Living Situation Comment: has aide come in current occupational status: retired 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 She has pain with any attempted range of motion of the hip. She has positive heel strike and logroll. No open wounds appreciated. No additional areas of tenderness. Results & Data Vital Signs (Past 12 Hours) Vital Signs Temp Pulse Pulse Resp BP BP Pulse Ox 03/09/25 07:06 72 03/09/25 05:58 81 20 144/79 H 100 03/09/25 03:20 36.5 C 67 18 122/80 99 03/09/25 02:20 03/09/25 02:01 67 16 107/58 L 98 03/09/25 01:25 67 16 114/57 L 98 03/09/25 00:46 65 03/09/25 00:03 69 18 114/57 L 100 03/08/25 22:10 36.5 C 64 16 112/51 L 99 Pulse Ox O2 Del Method O2 Del Method O2 Flow Rate O2 Flow Rate 03/09/25 07:06 03/09/25 05:58 Nasal Cannula 2 03/09/25 03:20 Nasal Cannula 2 03/09/25 02:20 98 Nasal Cannula 2 03/09/25 02:01 Nasal Cannula 2 03/09/25 01:25 Nasal Cannula 2 03/09/25 00:46 03/09/25 00:03 Nasal Cannula 2 03/08/25 22:10 Nasal Cannula 2 Diagnostic Findings X-rays of the left femur, pelvis, left hip and CT scan of the pelvis were personally interpreted and reviewed. These demonstrate a comminuted fracture involving the intertrochanteric and basicervical femoral neck regions of the left proximal femur. No additional acute abnormalities are appreciated. (1) Closed fracture of left hip Encounter type: initial encounter Qualified Code(s): S72.002A - Fracture of unspecified part of neck of left femur, initial encounter for closed fracture (10) Scoliosis of thoracolumbar spine Scoliosis type: unspecified scoliosis Qualified Code(s): M41.9 - Scoliosis, unspecified
[2025-03-09] MEDS: ACETAMINOPHEN 1,000 MG/100 ML VIAL IV SCH (08:46)
[2025-03-09] MEDS: buPROPion XL 300 MG TABCR PO SCH (08:50)
[2025-03-09] MEDS: FLUTICASONE FUROATE 100MCG 14 PUFFS/INHALER INH SCH (08:50)
[2025-03-09] MEDS: UMECLIDINIUM/VILANTEROL 62.5/25MCG 7 PUFFS/INHALER INH SCH (08:51)
[2025-03-09] MEDS: FLUTICASONE PROPIONATE NA SPR 16 GM BTL SCH (08:51)
[2025-03-09] MEDS: MAGNESIUM OXIDE 400 MG TAB PO SCH (08:51)
[2025-03-09] MEDS: PANTOprazole 40 MG TAB PO SCH (08:51)
[2025-03-09] MEDS ORDERED: NON-FORMULARY MEDICATION (Fluticasone-Umeclidin-Vilanter [Trelegy Ellipta] 100-62.5-25 mcg INH SCH (09:00)
[2025-03-09 10:23] LABS: Hematocrit (blood only) 32.3 % (37.0-47.0); Hemoglobin 10.7 g/dl (12.0-16.0); Mean Corpuscular Hemoglobin 30.2 pg (25.0-34.0); Mean Corpuscular Hgb Conc 33.1 g/dL (32.0-36.0); Mean Corpuscular Volume 91.2 fL (80.0-100.0); Mean Platelet Volume 10.5 fL (9.4-12.4); Platelet Count 103 K/uL (130-400); RDW Coefficient of Variation 14.6 % (11.5-14.5); Red Blood Count 3.54 M/uL (4.20-5.40); White Blood Count 6.41 K/ul (4.8-10.8)
[2025-03-09 10:36] LABS: BUN Creatinine Ratio 18.4 (10-20); Calcium 8.6 mg/dl (8.6-10.3); Creatinine Clr Calc Pharmacy 42.8 ml/min; Potassium 3.9 mmol/L (3.5-5.1)
[2025-03-09] MEDS ORDERED: ALBUTEROL HFA 8 GM INHALER INH PRN (13:12)
--- NOTE | 2025-03-09 13:18 | Hospitalist Progress Note ---
Date of Service March 09, 2025 Assessment & Plan (1) Osteoporotic hip fracture: (2) COPD (chronic obstructive pulmonary disease): Plan 79-year-old female PMHx HTN, hypothyroidism, HLD, GERD, hyperactive bladder, OP, COPD, tobacco abuse, and neuroendocrine carcinoma presenting s/p ground-level fall and complaining of L hip pain on day [employer]. ED evaluation reveals no leukocytosis, H&H 11.4/35.2; PT/INR WNL; CMP with glucose 57, calcium 8.3; CK 67; troponin 7.8; TSH 9.86, pending free T4; UA with some protein and ketones but no infection; hip/pelvis XR acute impacted intertrochanteric and neck fracture through proximal L femur, varus angulation of distal fracture fragment; CXR hyperinflation, ILD, nodule not visualized; EKG NSR, 67 bpm.; Provided with Zofran 4 mg IV, [place] morphine 0.25 mg IV, fentanyl citrate 50 mcg IV, and acetaminophen 1 g IV in ED. EKG w/ NSR, CXR w hyperinflation, interstitial lung disease #Osteoporotic LEFT hip fracture Pt presenting for GLF, landing on L hip and on ground ~ 2 hours; current complaint some L hip pain, increased with any movement. Baseline cane use but does have a walker Imaging w/ xray, CT noting comminuted displaced fracture is noted involving intertrochanteric region of left femur. Diffuse osteopenia Orthopedics consulted, Dr Pemberton NPO x meds LR @ 80cc/hr BSG q4h checks added given Glu 57 on admit, POC 112 and stable Pain control: Tylenol 1gm IV q8h scheduled, dilaudid 0.25-0.5mg as needed for breakthrough but currently stable Antiemetics as needed Vit D low 29, low dose PO started. continue at dc Plan for OR w/ Dr Pemberton this afternoon for L troch nail PT/OT following and likely need for rehab -- prior good experience at [facility] as discussed w/ son in room and CM to follow DVT proph: SCDs for now, chemoproph following OR Labs/exam in AM #Hypoglycemia Found to be hypoglycemic on arrival, Glu 57. Reports did not eat dinner the day of admission/poor intake reported. Not diabetic/no meds at baseline Hypoglycemia protocol ordered, BSG q4h while NPO and then monitor as needed. Can consult nutrition as needed for supplements #COPD/tobacco use H/o COPD, 1L with exertion, 2L O2 at night per baseline. Follows with pulmonology, most recent visit 02/23/2025. >[id number] smoking history CXR hyperinflation, ILD, nodule not visualized (from prior CT) No evidence of exacerbation today Continue home meds Trelegy/hospital equivalent, albuterol, DuoNebs as needed -Continue Wellbutrin 300 mg for tobacco abuse, patches- patiently actively trying to stop #Hypothyroidism-TSH 9.806, T4 wnl however on basline synthroid and has been continued and will check T3 w/ AM labs. Appears prior TSH was 12 and was on 50mcg in the past and presently on 75mcg Rec f/u PCP but will send message to consider further increase and repeat labs outpt #HTN- Currently holding losartan per PCP (02/26/2025) -- WAS ON 25mg but BP was below goal however is elevated at present time but in setting of fracture/pain/hospitalization however if remains elevated w/ pain control would consider RESUMING #HLD- Crestor #GERD/Vu's- Pantoprazole #OP- Fosamax #Neuroendocrine tumor- S/p resection 2011, octreotide DVT proph: SCDs ordered, chemo proph defer for OR today, can order following Dispo: continued inpatient stay, OR this afternoon with Dr Pemberton. Eventual likely need for rehab , CM to follow Admission and Anticipated Discharge Date Admission Date: March 09, 2025 Supervising Physician Co-Signing Physician Notes The patient was not seen by me. The chart was reviewed. Case discussed with ELLA Barerto. Agree with assessment and plan Subjective BRIDGE NOTE: ADMITTED AFTER MIDNIGHT, NO BILL Patient seen in emergency department, C12B, sister Mary and son Nicci in room. Pain stable at present but request not to move. Mouth dry, provided mouth swab. On supplemental NC, stable. Typically only uses at night and if out and walking. No increased SOB, no CP. Discussed OR for 1300, should be here shortly to take and then floor bed following. Reports she had tripped w/ her cane w/ the feet on it but does have walker. Lives in senior apartments, discussed likely benefit from rehab following. Patient and son in room report good stay at [facility] in the past. Questions/concerns addressed at this time, troch hector w/ Dr Pemberton this afternoon. Physical Exam 2 Physical Exam: General: 79yo elderly female, thin, cachectic appearing but NAD, laying in bed, son/sister in room HEENT: head atraumatic, normocephalic, mm dry, trachea midline Resp: even/unlabored, no wheezing, diminished in baseline, on supplemental O2 via NC CV: RRR, no significant m/r/g, no pitting edema, pulses present, cap refill wnl GI: +BS, soft/NT : linda w/ concentrated yellow urine MSK/Neuro: LEFT leg shortened, rotated, +tenderness along femur, did not attempt ROM at this time, calves nontender Psych: AOx3, cooperative with exam Results & Data Results & Data Vital Signs (Past 12 Hours) Vital Signs Temp Pulse Pulse Resp BP BP Pulse Ox 03/09/25 09:09 74 16 100 03/09/25 08:55 143/99 H 03/09/25 07:06 72 03/09/25 05:58 81 20 144/79 H 100 03/09/25 03:20 36.5 C 67 18 122/80 99 03/09/25 02:20 03/09/25 02:01 67 16 107/58 L 98 03/09/25 01:25 67 16 114/57 L 98 Pulse Ox O2 Del Method O2 Del Method O2 Flow Rate O2 Flow Rate 03/09/25 09:09 Room Air 03/09/25 08:55 03/09/25 07:06 03/09/25 05:58 Nasal Cannula 2 03/09/25 03:20 Nasal Cannula 2 03/09/25 02:20 98 Nasal Cannula 2 03/09/25 02:01 Nasal Cannula 2 03/09/25 01:25 Nasal Cannula 2 Laboratory Results 03/09/25 09:50 03/09/25 09:50 Mag 1.9 POC Glucose 112 B12 248 Vitamin D 29.1 TSH 9.806, T4 0.88 Diagnostic Findings Hip/Pelvis X-Ray 03/08/25 22:29 Exam(s): XR HIP + PELVIS, 1 view EXAM: XR Left Hip With Pelvis, 3 Views CLINICAL HISTORY: Hip trauma, fracture suspected, no prior imaging. TECHNIQUE: Three views of the left hip with pelvis. COMPARISON: CT pelvis 10/26/2024. FINDINGS: Bones are osteopenic. Acute impacted intertrochanteric and neck fracture through the proximal left femur with varus angulation of the distal fracture fragment. Left femoral head and acetabulum appear intact. No other fracture identified. Degenerative changes of the lumbar spine are present. Abundant stool throughout the colon. IMPRESSION: Acute impacted intertrochanteric and neck fracture through the proximal left femur with varus angulation of the distal fracture fragment. Electronically signed by: Manuelito Mtz M.D. 03/09/25 02:33 AM Chest X-Ray 03/08/25 23:36 Exam(s): XR CXR 1 VIEW EXAM: XR Chest, 1 View CLINICAL HISTORY: chest pain. TECHNIQUE: Frontal view of the chest. COMPARISON: CT chest 02-15-2025. FINDINGS: Heart is normal size. Lungs are hyperinflated. Mild diffuse interstitial prominence. Previously demonstrated lung nodules on CT are not distinctly visualized. No pleural effusion or pneumothorax. Bones are osteopenic. Degenerative changes of the thoracic spine. IMPRESSION: Hyperinflation. Interstitial lung disease. Previously demonstrated lung nodules on CT are not distinctly visualized. Electronically signed by: Manuelito Mtz M.D. 03/09/25 02:35 AM Femur X-Ray 03/09/25 06:37 EXAM: XR femur LT 2V routine CLINICAL HISTORY: Eval entire bone TECHNIQUE: X-ray images of the left femur were obtained in anteroposterior (AP) and lateral projections. COMPARISON: No prior studies are available for comparison. FINDINGS: Bone Structure: Osteopenia. Comminuted intertrochanteric fractures in the left femur. The femoral shaft and distal regions are normal in structure and alignment. Joint and Articular Surfaces: Mild degenerative changes in the left hip joint. Soft Tissues: Soft tissue swelling along the left proximal femur. Vascular calcifications noted. IMPRESSION: 1. Osteopenia. 2. Comminuted intertrochanteric fractures in the left femur. 3. Mild degenerative changes in the left hip joint. Disclaimer: A subtle bone abnormality or fracture may not be readily apparent on X-rays. Clinical correlation and further imaging, including CT, MRI, or follow-up X-rays, are advised if clinically warranted. Electronically signed by Timo Zuluaga 03-09-2025 07:[address] 03/09/25 06:37 EXAM: CT pelvis wo con CLINICAL HISTORY: preop planning TECHNIQUE: Contiguous axial CT images of pelvis were obtained without intravenous contrast. Coronal and sagittal reconstructions were likewise performed and indicated to increase the sensitivity for detecting clinically relevant pathology. CT scan was performed according to ALARA (as low as reasonable achievable). COMPARISON: None. FINDINGS: Diffuse osteopenia noted. Comminuted displaced fracture is noted involving intertrochanteric region of left femur. No destructive osseous lesion. The visualized muscles and tendons appear grossly unremarkable. No cortical destruction to suggest osteomyelitis. No abscess formation. No significant joint effusion. There are no soft tissue masses. Normal subcutaneous adipose space. Mild osteoporotic compression collapse of visualized lower lumbar vertebrae. Left iliopsoas muscle appears mildly bulky as compared to its counter part. IMPRESSION: 1. Diffuse osteopenia noted. 2. Comminuted displaced fracture is noted involving intertrochanteric region of left femur. Electronically signed by Jose L Egan 03-09-2025 08:17 AM PG Care Time/CCT Total # of Minutes Spent Total Time Spent with Patient: Total time spent is greater than 50% in coordination of care (as documented) at patient's floor/unit and/or counseling patient: Coding Level of Care Code None Diagnoses Osteoporotic hip fracture M80.059A COPD (chronic obstructive pulmonary disease) J44.9 COPD type: unspecified COPD (2) COPD (chronic obstructive pulmonary disease) COPD type: unspecified COPD Qualified Code(s): J44.9 - Chronic obstructive pulmonary disease, unspecified
[2025-03-09] MEDS ORDERED: LIDOCAINE 2% 2 ML VIAL/AMP(20MG/ML) INFIL ONE (13:23)
[2025-03-09] MEDS ORDERED: PROPOFOL IV EMULSION 10 MG/ML 20 ML VIAL IV ONE (13:23)
[2025-03-09] MEDS ORDERED: fentaNYL citrate PF 100 MCG/2 ML VIAL ONE (13:23)
[2025-03-09] MEDS ORDERED: MIDAZOLAM HCL 1 MG/ML 2ML VIAL ONE (13:24)
[2025-03-09] MEDS ORDERED: PHENYLEPHRINE HCL 10 MG/ML VIAL ONE (13:25)
[2025-03-09] MEDS ORDERED: PROMETHAZINE HCL 6.25 MG in SODIUM CHLORIDE 0.9% 50 ML IV PRN (14:57)
[2025-03-09] MEDS ORDERED: ePHEDrine sulfate 50 MG/ML AMP IV PRN (14:57)
[2025-03-09] MEDS ORDERED: ONDANSETRON INJ 2 MG/ML 2 ML VIAL IV PRN (14:57)
[2025-03-09] MEDS ORDERED: HYDROmorphone INJ 2 MG/ML SYR/VIAL IV PRN (14:57)
[2025-03-09] MEDS ORDERED: ATROPINE SULFATE 0.1 MG/ML 10ML SYR IV PRN (14:57)
[2025-03-09] MEDS ORDERED: fentaNYL citrate PF 100 MCG/2 ML VIAL IV PRN (14:57)
[2025-03-09] MEDS ORDERED: ROPIVACAINE 0.5% 5 MG/ML 30 ML VIAL ONE (14:58)
[2025-03-09] MEDS ORDERED: BUPIVACAINE 0.5 % 5 MG/1 ML PF 10ML VIAL ONE (15:01)
[2025-03-09] MEDS ORDERED: KETAMINE HCL 10MG/ML SYR ONE (15:10)
--- NOTE | 2025-03-09 15:19 | History & Physical Bridge Note ---
Date of Service March 09, 2025 History & Physical Bridge Note I have examined the patient, reviewed the History & Physical and in the interval since the performance of the History & Physical I have noted the following changes of clinical significance: This patient is a very medically frail 79-year-old female who presents to the emergency department after a ground-level fall complaining of left hip pain. The patient's history, physical exam, imaging findings are consistent with a left hip fracture. On careful review of the imaging, this does appear to be an intertrochanteric fracture with extension into the femoral neck. I had a very long discussion with the patient this morning regarding the nature of this injury. We discussed in great detail the pathoanatomy, pathophysiology, treatment options. I did express to the patient that given the significance of this fracture, my recommendation is for operative management. I discussed with her operative plan which would be for a cephalomedullary nail of her hip. I expressed to her that her fracture is somewhat atypical as it involves both the intertrochanteric and the femoral neck regions. I expressed to her that with or without surgery she is at a very high risk of avascular necrosis of the femoral head. I expressed to the patient there are risks associated with surgery. These risks include but are not limited to loss of life/limb, DVT, incomplete relief of pain, need for additional surgery, hardware complication, hardware failure, ia trogenic injury to bone/nerve/tendon/vessel, nonunion, malunion, hardware irritation, femoral head collapse, femoral head avascular necrosis. I expressed to the patient the alternatives to surgery which would include nonoperative care. Nonoperative care does carry with a higher risk of complications of immobilization including but not limited to DVT, decubitus ulcers, pneumonia. Also, in very clear terms, I expressed to the patient that in elderly patients after hip fracture, often times their level of mobility and independence decreases. Expressed to her that she may require more nursing care in the future and may not be nearly as ambulatory. Often times, after hip fracture, patients decreased 1 functional level of ambulation and if she is currently walking with a walker, she may not walk much after surgery. She expressed understanding to this. Through shared decision making model, after thorough discussion of risk, benefits, alternatives to surgical management, the patient is interested in pursuing surgery. Surgical plan: Open versus closed reduction and cephalomedullary nailing of the left hip Patient has been n.p.o. since midnight. [facility] I did discuss all of the above with the patient's sister and son as well.
[2025-03-09] MEDS ORDERED: ONDANSETRON INJ 2 MG/ML 2 ML VIAL ONE ×2 (16:14→16:15)
[2025-03-09] MEDS ORDERED: DEXAMETHASONE SOD INJ 4 MG/ML VIAL ONE ×2 (16:14→16:15)
[2025-03-09] MEDS ORDERED: VASOPRESSIN 20 UNIT/ML VIAL ONE (16:19)
--- NOTE | 2025-03-09 17:53 | Post Operative Brief Note ---
Immediate Post Op Note Date of Surgery March 09, 2025 Pre & Post Diagnosis Operation Date: 03/09/25 08:00 Pre-Op Diagnosis: Closed fracture of left hip Post-Op Diagnosis: Closed fracture of left hip I identified the patient and participated in the time-out.: Yes Procedure Operation Date: 03/09/25 08:00 Actual Procedures p Open Reduction, Cephalomedullary Nailing of the Left Hip, Physician Directed Fluroscopy Greater than 1 hour(Left) - Lloyd Pemberton DO Surgeon Lloyd Pemberton DO Medical Lead Abdulkadir Reyna PA-C Estimated Blood Loss 200 Findings Consistent with Post-Op Diagnosis Drains Vance Catheter Complications none Disposition Disposition: Recovery Room Overlapping Procedure I was present for: the critical portions of procedure. (the entire surgery)
--- NOTE | 2025-03-09 18:18 | Operative Report ---
Post Operative Report Pre & Post Diagnosis Operation Date: 03/09/25 08:00 Pre-Op Diagnosis: Closed fracture of left hip Post-Op Diagnosis: Closed fracture of left hip I identified the patient and participated in the time-out.: Yes Procedure Operation Date: 03/09/25 08:00 Actual Procedures p Open Reduction, Cephalomedullary Nailing of the Left Hip, Physician Directed Fluroscopy Greater than 1 hour(Left) - Lloyd Pemberton DO 1. Open reduction cephalomedullary nailing left hip 2. Surgeon Lloyd Pemberton DO Skip Locator Abdulkadir Reyna PA-C Estimated Blood Loss 200 Findings Consistent with Post-Op Diagnosis Specimens none Anesthesia Type Spinal Disposition Disposition: Recovery Room Indications This patient is a very medically frail 79-year-old female who presents to the emergency department after a ground-level fall complaining of left hip pain. The patient's history, physical exam, imaging findings are consistent with a left hip fracture. On careful review of the imaging, this does appear to be an intertrochanteric fracture with extension into the femoral neck. I had a very long discussion with the patient this morning regarding the nature of this injury. We discussed in great detail the pathoanatomy, pathophysiology, treatment options. I did express to the patient that given the significance of this fracture, my recommendation is for operative management. I discussed with her operative plan which would be for a cephalomedullary nail of her hip. I expressed to her that her fracture is somewhat atypical as it involves both the intertrochanteric and the femoral neck regions. I expressed to her that with or without surgery she is at a very high risk of avascular necrosis of the femoral head. I expressed to the patient there are risks associated with surgery. These risks include but are not limited to loss of life/limb, DVT, incomplete relief of pain, need for additional surgery, hardware complication, hardware failure, iatrogenic injury to bone/nerve/tendon/vessel, nonunion, malunion, hardware irritation, femoral head collapse, femoral head avascular necrosis. I expressed to the patient the alternatives to surgery which would include nonoperative care. Nonoperative care does carry with a higher risk of complications of immobilization including but not limited to DVT, decubitus ulcers, pneumonia. Also, in very clear terms, I expressed to the patient that in elderly patients after hip fracture, often times their level of mobility and independence decreases. Expressed to her that she may require more nursing care in the future and may not be nearly as ambulatory. Often times, after hip fracture, patients decreased 1 functional level of ambulation and if she is currently walking with a walker, she may not walk much after surgery. She expressed understanding to this. Through shared decision making model, after thorough discussion of risk, benefits, alternatives to surgical management, the patient is interested in pursuing surgery. Surgical plan: Open versus closed reduction and cephalomedullary nailing of the left hip Patient has been n.p.o. since midnight. We will plan to proceed to the operating room pending OR availability. I did discuss all of the above with the patient's sister and son as well. Description of Procedure after informed consent was obtained, the patient was correctly identified in the preoperative holding suite, the operative site was marked with the surgeon's initials, the date of surgery, and the word yes. The patient was then taken to the operative suite. The department of anesthesia administered Spinal anestheti c. The patient was transferred from the [facility] to the operative table. All bony prominences were well-padded. Briefing and timeout was performed. All implants were available and sterile at the time. BRIEFING AND DEBRIEFING: Pre and post operative briefing and debriefing was performed. Introductions were made, goals of the procedure were discussed, questions and concerns were addressed. The operative site markings were identified and appropriate. A time [id number] was performed, the patient's correct identity was confirmed and the correct operative sites were identified. The patients pre-operative antibiotic dosing and administration was confirmed along with other SCIP measures. The team was polled at the completion of the surgery and all team members were in agreement that the procedure was without complication, the counts are correct, the wound class was identified and suggestions for improvement were shared. after adequate anesthesia was induced, the patient was transferred in supine fashion from the hospital bed to the [place] table. Her legs were placed into the traction boots and these were secured to the lower extremity limbs. The left upper extremity was padded and draped across her chest and the right upper extremity was placed on a well-padded arm board up to the side. The right lower extremity was scissored underneath the left and at this point we pulled traction, gentle internal rotation and performed a closed reduction. At this point we identified the fracture on AP view was well reduced, however on the lateral the extension into the femoral neck was clearly evident. It was at this point that we decided we would need to perform an open reduction in order to hold this in place during canal preparation and light bulb placement to ensure no significant displacement. We then washed the lower extremity with a chlorhexidine scrub brush and we prepped and draped the left lower extremity in standard sterile fashion using ChloraPrep and a an [place] shower curtain We began by using fluoroscopy to abdulkadir out the anatomy the proximal femur. We would abdulkadir out the tip of the greater trochanter, aligned in line with the femoral shaft, and the projected trajectory of the lag bolt. We made a 3 cm incision approximately 3 cm proximal to the tip of the greater trochanter in line with the femoral shaft, dissected bluntly down through the gluteal fascia until we encountered the tip of the greater trochanter. A starting wire was then used to obtain a start point on the tip of the greater trochanter just medial to the tip and in line with the femoral shaft. We advanced the starting wire and seated it into the femoral shaft. At this point we would make a 6 cm incision on the lateral thigh in line with where our light bolt was intended to go and through this incision, we then incised the IT band. A Quintero elevator was then used to bluntly dissect over the anterior aspect of the proximal femur freeing all adherent soft tissue's. Next, through the same trajectory we introduced a bone hook, we rotated over the calcar and pulled gentle traction to align the fracture on the AP view and also to stabilize the fracture that extended into the femoral neck. We checked the reduction on AP and lateral views and were satisfied. Then, over the starting wire that we had placed previously we would use the opening reamer. We then used the long ball-tipped guidewire and advanced this into the femoral canal down to just proximal to the patella. We would then measure over the guidewire and select the large diameter nail available to us which ended up being the [employer] TFN alpha 11 mm x 130 degrees x 360 mm trochanteric start nail. We then used a 12.5 mm reamer to open the femoral canal and chatter was felt. We attached the nail onto the insertion handle and while continuing to hold the reduction with our bone hook, over the ball-tipped guidewire we advanced the nail from proximal to distal. We seated this until we were satisfied with the intended trajectory of the lag bolt and while continuing to hold the fracture well reduced we would place a supplementary pin external to the nail in order to hold the fracture in this reduction. We then adjusted the trajectory of the lag bolt on both the AP and lateral views until we were satisfied with its trajectory and we advanced a wire so as to be low within the femoral neck and end in a near center position in the femoral head. We measured over the guidewire and selected a 90 mm fenestrated lag bolt. we drilled over the guidewire. We then attached The screw to the handle, and advanced this over the guidewire until we were satisfied with his final position. Next, we would compress through the jig while continuing to hold the fracture reduced after removing the external reduction wire and good compression was achieved. We checked the final reduction on the AP and lateral views and then we tightened the locking bolt proximally to lock this in a static position. We then removed the bone hook checked additional fluoroscopic views and were satisfied. Next, we turned our attention distally where we would place a single interlocking screw in the static hole using a perfect [place] technique. This ended up measuring 36 mm in length. We then checked final fluoroscopic views and were satisfied. We began a thorough closure using 1 L of sterile saline. We then closed the deep gluteal fascia and IT band using 0 Vicryl sutures. In the subcutaneous tissue we used 2-0 Vicryl suture and we ran a 3-0 Monocryl in the subcuticular tissue. We wo uld seal the wounds with skin glue, place Acticoat Flex, 4 x 4's, Tegaderm over all wounds. The patient tolerated this procedure well and was transferred to the PACU in stable condition. Prior to transportation to PACU, all counts were correct and a briefing was performed at the end of the case. Physician-directed fluoroscopy for Greater than one hour was performed by myself to verify fracture alignment and the safe placement of all internal fixation. The final images saved to PACs showed views demonstrating satisfactory alignment of the fracture and stable internal fixation. Implant verification was performed by myself by reading and confirming the implant information on the packaging with the team before the sterile implants were opened. I was present for the entire procedure. Plan: Weight bearing status: nonweightbearing left lower extremity Wound care: keep dressings clean and dry Range of motion: as tolerated VTE Prophylaxis: okay to resume from orthopedic standpoint Antibiotics: perioperative Ancef Pain Control: Multimodal Vitamin D Replacement: labs pending Discharge Plan: pending PT/OT Follow Up: the patient will follow-up with myself in about 2 weeks for wound check. I attest to the content of the Intraoperative Record and any orders documented therein. Any exceptions are noted below.
--- NOTE | 2025-03-09 19:44 | XRay Report ---
EXAM: XR femur LT 2V routine CLINICAL HISTORY: post-op portable. TECHNIQUE: X-ray images of the left femur were obtained in anteroposterior (AP) and lateral projections. COMPARISON: Pre-op XR dated 03/09/2025. FINDINGS: Bone Structure: Diffuse osteopenia in visualized bones. Post-surgical changes in the form of an intramedullary nail in the left femur. Surgical hardware is intact and in situ. Well-approximated fracture of the intertrochanteric region. No significant displacement. Femoral shaft and distal regions are normal in structure and alignment. Joint and Articular Surfaces: Mild degenerative changes in the hip joint. Soft Tissues: Soft tissue edema in the thigh with foci of subcutaneous emphysema due to recent intervention. Vascular calcification IMPRESSION: 1. Interval post-surgical changes. 2. Well-approximated fracture of the left femoral intertrochanteric region without significant displacement. Surgical hardware is intact and well-positioned. 3. Osteoporosis. 4. Mild degenerative changes in the left hip joint. Disclaimer: A subtle bone abnormality or fracture may not be readily apparent on X-rays. Clinical correlation and further imaging, including CT, MRI, or follow-up X-rays, are advised if clinically warranted. Electronically signed by Timo Zuluaga 03-09-2025 7:44 PM
[2025-03-09] MEDS: ceFAZolin 2,000 MG/15 ML IV PUSH IV ONE (19:55)
[2025-03-09] MEDS: TRANEXAMIC ACID / 0.7% NACL 1000MG/100ML BAG IV ONE ×2 (19:56)
[2025-03-09] MEDS: ceFAZolin 2000MG 2,000 MG/15 ML SYR IV ONE ×2 (19:56)
[2025-03-09] MEDS: ROSUVASTATIN CALCIUM 20 MG TAB PO SCH (20:03)
--- NOTE | 2025-03-09 22:32 | Anesthesiology Progress Note ---
Date of Service March 09, 2025 Anesthesia Post Procedure Vital Signs Vital Signs: Temp Pulse Pulse Pulse Resp BP BP 03/09/25 19:20 73 16 109/58 L 03/09/25 19:10 36.4 C L 73 24 108/61 03/09/25 19:00 68 23 101/60 03/09/25 18:50 67 22 106/62 03/09/25 18:40 84 22 103/59 L 03/09/25 18:30 71 19 100/52 L 03/09/25 18:20 76 18 97/58 L 03/09/25 18:10 85 22 107/57 L 03/09/25 18:00 36.4 C L 83 21 100/59 L 03/09/25 13:27 37.1 C 81 16 125/58 L 03/09/25 13:15 134/82 03/09/25 13:06 79 24 03/09/25 09:09 74 16 03/09/25 08:55 143/99 H 03/09/25 07:06 72 03/09/25 05:58 81 20 144/79 H 03/09/25 03:20 36.5 C 67 18 122/80 03/09/25 02:20 03/09/25 02:01 67 16 107/58 L 03/09/25 01:25 67 16 114/57 L 03/09/25 00:46 65 03/09/25 00:03 69 18 114/57 L Pulse Ox Pulse Ox O2 Del Method O2 Del Method O2 Flow Rate O2 Flow Rate 03/09/25 19:20 94 Room Air 03/09/25 19:10 96 Room Air 03/09/25 19:00 97 Room Air 03/09/25 18:50 95 Room Air 03/09/25 18:40 95 Room Air 03/09/25 18:30 97 Room Air 03/09/25 18:20 97 Room Air 03/09/25 18:10 96 Room Air 03/09/25 18:00 100 Oxymask 5 03/09/25 13:27 98 Nasal Cannula 2 03/09/25 13:15 03/09/25 13:06 99 Nasal Cannula 2 03/09/25 09:09 100 Room Air 03/09/25 08:55 03/09/25 07:06 03/09/25 05:58 100 Nasal Cannula 2 03/09/25 03:20 99 Nasal Cannula 2 03/09/25 02:20 98 Nasal Cannula 2 03/09/25 02:01 98 Nasal Cannula 2 03/09/25 01:25 98 Nasal Cannula 2 03/09/25 00:46 03/09/25 00:03 100 Nasal Cannula 2 Transfer of Care Handoff Completed per policy Notes Mental Status: alert / awake / arousable Patient Amnestic to Procedure: Yes Nausea / Vomiting: adequately controlled Pain: adequately controlled Airway Patency, RR, SpO2: stable & adequate BP & HR: stable & adequate Hydration State: stable & adequate Anesthetic Complications: no major complications apparent
--- NOTE | 2025-03-10 00:40 | Electrocardiogram Report ---
Test Reason : Blood Pressure : */* mmHG Vent. Rate : 67 BPM Atrial Rate : 67 BPM P-R Int : 192 ms QRS Dur : 88 ms QT Int : 440 ms P-R-T Axes : 82 49 74 degrees QTcB Int : 464 ms Normal sinus rhythm Cannot rule out Anterior infarct , age undetermined Abnormal ECG When compared with ECG of 11-Sep-2024 02:21, Minimal criteria for Anterior infarct are now Present Confirmed by Alvin Walker ([id number]) on 03/10/2025 12:40:00 AM Referred By: REFERRED SELF Confirmed By: Alvin Walker
[2025-03-10] MEDS: LEVOTHYROXINE SODIUM 88 MCG TABLET PO SCH (05:46)
[2025-03-10] MEDS: CYCLOBENZAPRINE HCL 10 MG TAB PO PRN (05:49)
[2025-03-10] MEDS: ACETAMINOPHEN 325 MG TAB PO PRN (05:49)
--- NOTE | 2025-03-10 07:49 | Hospitalist Progress Note ---
Date of Service March 10, 2025 Assessment & Plan (1) Osteoporotic hip fracture: (2) COPD (chronic obstructive pulmonary disease): Plan 79-year-old female PMHx HTN, hypothyroidism, HLD, GERD, hyperactive bladder, OP, COPD, tobacco abuse, and neuroendocrine carcinoma presenting s/p ground-level fall and complaining of L hip pain on day [employer]. ED evaluation reveals no leukocytosis, H&H 11.4/35.2; PT/INR WNL; CMP with glucose 57, calcium 8.3; CK 67; troponin 7.8; TSH 9.86, pending free T4; UA with some protein and ketones but no infection; hip/pelvis XR acute impacted intertrochanteric and neck fracture through proximal L femur, varus angulation of distal fracture fragment; CXR hyperinflation, ILD, nodule not visualized; EKG NSR, 67 bpm.; Provided with Zofran 4 mg IV, Gully morphine 0.25 mg IV, fentanyl citrate 50 mcg IV, and acetaminophen 1 g IV in ED. EKG w/ NSR, CXR w hyperinflation, interstitial lung disease #Osteoporotic LEFT hip fracture Pt presenting for GLF, landing on L hip and on ground ~ 2 hours; current complaint some L hip pain, increased with any movement. Baseline cane use but does have a walker. Imaging w/ xray, CT noting comminuted displaced fracture is noted involving intertrochanteric region of left femur. Diffuse osteopenia Orthopedics consulted, Dr Pemberton s/p Open Reduction, Cephalomedullary Nailing of the Left Hip, Physician Directed Fluroscopy Greater than 1 hour(Left) - Lloyd Pemberton, DO 5/2. EBL 300cc WBC wnl, afebrile Hgb 10.7--> 8.6, acute blood loss anemia from troch nail/procedure but also suspect dilutional aspect from IVF ordered and have been continued @ 80cc/hr and will discontinue Linda in place, clear yellow urine, removal pending status w/ PT Vit D low normal 29, PO started. Pain control- APAP 1gm q8IV, will add oxycodone 5mg prn. Bowel regimen- added colace bid scheduled, miralax prn DVT proph: Added Lovenox SQ once daily PT/OT consults pending, WBAT w/ walker. Suspect likely will need IPR but will await therapy evals and CM to follow #Hypoglycemia Found to be hypoglycemic on arrival, Glu 57. Reports did not eat dinner the day of admission/poor intake reported. Not diabetic/no meds at baseline Hypoglycemia protocol ordered, BSG q4h while NPO and BSGs acceptable Monitor for any issues #COPD/tobacco use H/o COPD, 1L with exertion, 2L O2 at night per baseline (however denies using at night) Follows with pulmonology, most recent visit 02/23/2025. >28-daoh-sslh smoking history CXR hyperinflation, ILD, nodule not visualized (from prior CT) No evidence of exacerbation today Continue home meds Trelegy/hospital equivalent, albuterol, DuoNebs as needed Continue Wellbutrin 300 mg for tobacco abuse, patches- patiently actively trying to stop On room air at present 92%, denies sob. IVF dc'd to prevent overload/monitor for issues. Continue incentive spirometer (reports using this morning) #Hypothyroidism -TSH elevated 9.806, T4 wnl however checked T3 and LOW 1.75 and on baseline baseline Synthroid. Review prior TSH was 12 and Synthroid inc from 50--> 75mcg and messaged PCP - Synthroid further increased to 88mcg and rec for repeat TFT outpt/ PCP 4-6wks #HTN Currently holding losartan per PCP (02/26/2025, was on 25mg but BP was below goal) BP elevated on admit likely 2nd to fall/fx/pain, currently 115/65 and will remain OFF/monitor #B12 deficiency -- checked w/ balance issues at baseline and ws LOW normal 248 and starting 1000mcg PO replacement and would continue at [place]. #HLD- Crestor #GERD/Vu's- Pantoprazole #OP- Fosamax #Neuroendocrine tumor- S/p resection 2011, octreotide monthly w/ CCP DVT proph: SCDs ordered, lovenox SQ added today Dispo: continued inpatient stay, therapy evals pending and likely need for inpatient rehab. [facility] YUMIKO Pruitt to follow Admission and Anticipated Discharge Date Admission Date: March 09, 2025 Supervising Physician Co-Signing Physician Notes The patient was not seen by me. The chart was reviewed. Case discussed with ELLA Barreto. Agree with assessment and plan Subjective Eval this morning, resting in bed, pillow between legs. Prior reports not being able to feel her legs but did get spinal block, currently reporting improvement, able to wiggle toes, sensation and pulses intact. Pain controlled at present time, VSS, linda with clear yellow urine and abdomen nontender. Decent appetite, no CP/SOB. Waiting therapy evals, plan for eventual rehab. Uses flexeril as needed at times for muscle spasms to her neck, will ensure ordered. Questions/concerns addressed at this time. Physical Exam Physical Exam: General: 79yo elderly female, thin, resting, NAD, no family in room today HEENT: head atraumatic, normocephalic, mm dry, trachea midline Resp: even/unlabored, no wheezing, diminished in baseline, on room air CV: RRR, no significant m/r/g, no pitting edema, pulses present, cap refill wnl GI: +BS, soft/NT : linda w/ clear yellow urine MSK/Neuro: LEFT thigh with slight edema, dressings c/d/i, +tenderness, appropriate tenderness to incision, toes mobile, compartments soft/nontender ca lves, pulses present, dorsiflexion/plantarflexion intact, slight reduction w/ dorsiflexion on the left but improved Psych: AOx3, cooperative with exam Results & Data Results & Data Vital Signs (Past 12 Hours) Vital Signs Temp Pulse Resp BP BP Pulse Ox Pulse Ox 03/10/25 07:12 37.4 C 87 18 115/65 92 03/10/25 06:00 92 03/10/25 02:33 36.7 C 86 18 117/64 93 03/10/25 02:00 94 03/09/25 23:27 36.4 C L 76 14 110/65 94 03/09/25 22:34 03/09/25 22:00 93 O2 Del Method O2 Del Method 03/10/25 07:12 Room Air 03/10/25 06:00 Room Air 03/10/25 02:33 Room Air 03/10/25 02:00 Room Air 03/09/25 23:27 Room Air 03/09/25 22:34 Room Air 03/09/25 22:00 Room Air Laboratory Results 03/10/25 03/09/25 Range/Units 07:21 09:50 WBC 7.40 (4.8-10.8) K/ul RBC 2.88 L (4.20-5.40) M/uL Hgb 8.6 L (12.0-16.0) g/dl Hct 25.6 L (37.0-47.0) % MCV 88.9 (80.0-100.0) fL MCH 29.9 (25.0-34.0) pg MCHC 33.6 (32.0-36.0) g/dL RDW Std Deviation 46.6 H (36.4-46.3) fL RDW Coeff of Nichole 14.6 H (11.5-14.5) % Plt Count 86 L (130-400) K/uL MPV 10.9 (9.4-12.4) fL Sodium Pending Potassium Pending Chloride Pending Carbon Dioxide Pending Anion Gap Pending BUN Pending Creatinine Pending Est Cr Clr Drug Dosing Pending eGFR Pending BUN/Creatinine Ratio Pending Glucose Pending Calcium Pending Magnesium Pending Vitamin B12 248 (180-914) pg/ml Free T3 1.75 L (2.3-4.2) pg/ml Diagnostic Findings Femur X-Ray 03/09/25 17:52 EXAM: XR femur LT 2V routine CLINICAL HISTORY: post-op portable. TECHNIQUE: X-ray images of the left femur were obtained in anteroposterior (AP) and lateral projections. COMPARISON: Pre-op XR dated 03/09/2025. FINDINGS: Bone Structure: Diffuse osteopenia in visualized bones. Post-surgical changes in the form of an intramedullary nail in the left femur. Surgical hardware is intact and in situ. Well-approximated fracture of the intertrochanteric region. No significant displacement. Femoral shaft and distal regions are normal in structure and alignment. Joint and Articular Surfaces: Mild degenerative changes in the hip joint. Soft Tissues: Soft tissue edema in the thigh with foci of subcutaneous emphysema due to recent intervention. Vascular calcification IMPRESSION: 1. Interval post-surgical changes. 2. Well-approximated fracture of the left femoral intertrochanteric region without significant displacement. Surgical hardware is intact and well-positioned. 3. Osteoporosis. 4. Mild degenerative changes in the left hip joint. Disclaimer: A subtle bone abnormality or fracture may not be readily apparent on X-rays. Clinical correlation and further imaging, including CT, MRI, or follow-up X-rays, are advised if clinically warranted. Electronically signed by Timo Zuluaga 03-09-2025 7:44 PM PG Care Time/CCT Total # of Minutes Spent Total Time Spent with Patient: Total time spent is greater than 50% in coordination of care (as documented) at patient's floor/unit and/or counseling patient: Coding Level of Care Code 29359 SUB INP/OBS CARE 3/50MIN Diagnoses Osteoporotic hip fracture M80.059A COPD (chronic obstructive pulmonary disease) J44.9 COPD type: unspecified COPD (2) COPD (chronic obstructive pulmonary disease) COPD type: unspecified COPD Qualified Code(s): J44.9 - Chronic obstructive pulmonary disease, unspecified
[2025-03-10] MEDS: CYANOCOBALAMIN (B-12) 500 MCG TABLET PO SCH (08:14)
[2025-03-10] MEDS: ENOXAPARIN INJ 40 MG/0.4 ML SYR SQ SCH (08:24)
[2025-03-10 08:46] LABS: Hematocrit (blood only) 25.6 % (37.0-47.0); Hemoglobin 8.6 g/dl (12.0-16.0); Mean Corpuscular Hemoglobin 29.9 pg (25.0-34.0); Mean Corpuscular Hgb Conc 33.6 g/dL (32.0-36.0); Mean Corpuscular Volume 88.9 fL (80.0-100.0); Mean Platelet Volume 10.9 fL (9.4-12.4); Platelet Count 86 K/uL (130-400); RDW Coefficient of Variation 14.6 % (11.5-14.5); RDW Standard Deviation 46.6 fL (36.4-46.3); Red Blood Count 2.88 M/uL (4.20-5.40)
[2025-03-10] MEDS: DOCUSATE SODIUM 100 MG CAP PO SCH (10:04)
[2025-03-10 11:42] LABS: BUN Creatinine Ratio 16.3 (10-20); Calcium 8.4 mg/dl (8.6-10.3); Creatinine Clr Calc Pharmacy 40.5 ml/min; Magnesium 1.7 mg/dl (1.7-2.4)
--- NOTE | 2025-03-10 12:08 | Orthopedic Progress Note ---
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 Due to the comminuted nature of this fracture, the patient we nonweightbearing on her left lower extremity until early bone healing is seen on x-ray. She should work with PT and OT today to determine appropriate discharge plan, but patient is likely to require half-way facility. Okay for DVT prophylaxis Multimodal pain control Up and out of bed 3 times daily with all meals Patient will follow with me in about 2 weeks for wound check. Admission and Anticipated Discharge Date Admission Date: March 09, 2025 Subjective postoperative day #1 status post open reduction cephalomedullary nailing left hip for left intertrochanteric hip fracture. Patient doing well this morning. Denies significant pain. Review of Systems Review of Systems: All systems reviewed & are unremarkable except as noted in HPI & below Physical Exam Physical Exam: Left hip dressings clean dry and intact. Patient wiggles all toes. Foot warm and well-perfused. Results & Data Vital Signs (Past 12 Hours) Vital Signs Temp Pulse Resp BP Pulse Ox Pulse Ox O2 Del Method 03/10/25 11:27 37.0 C 88 18 123/72 94 Room Air 03/10/25 07:30 Room Air 03/10/25 07:12 37.4 C 87 18 115/65 92 Room Air 03/10/25 06:00 92 03/10/25 02:33 36.7 C 86 18 117/64 93 Room Air 03/10/25 02:00 94 O2 Del Method 03/10/25 11:27 03/10/25 07:30 03/10/25 07:12 03/10/25 06:00 Room Air 03/10/25 02:33 03/10/25 02:00 Room Air Diagnostic Findings Postoperative imaging reviewed. Demonstrates stable internal fixation of comminuted left intertrochanteric/femoral neck hip fracture. (9) Scoliosis of thoracolumbar spine Scoliosis type: unspecified scoliosis Qualified Code(s): M41.9 - Scoliosis, unspecified
[2025-03-10] MEDS: oxyCODONE HCL IR 5 MG TAB (IMMEDIATE RELEASE) PO PRN (14:04)
[2025-03-10] MEDS: Nursing to Pharmacy Communication SCH (20:03)
[2025-03-10] MEDS: MAGNESIUM OXIDE 400 MG TAB PO SCH (20:04)
--- NOTE | 2025-03-11 06:00 | Orthopedic Progress Note ---
<Statement entered by Lloyd Pemberton, - 03/13/25 13:15> I saw and evaluated the patient and agree with Abdulkadir Reyna PA-C POD 2 s/p L hip CMN doing well continue multimodal pain control NWB LLE follow up with myself in 2 weeks for wound check Date of Service March 11, 2025 Assessment & Plan (1) Osteoporotic hip fracture: Plan: 79-year-old female doing well postop day #2 status post open reduction cephalomedullary nailing left hip for left intertrochanteric/femoral neck hip fracture. Due to the comminuted nature of this fracture, the patient we nonweightbearing on her left lower extremity until early bone healing is seen on x-ray. She should work with PT and OT today to determine appropriate discharge plan, but patient is likely to require halfway facility. Okay for DVT prophylaxis Multimodal pain control Up and out of bed 3 times daily with all meals Patient will follow with Dr Pemberton in about 2 weeks for wound check. ortho will sign off at this time, please contact with any further questions or concerns. d/c instructions placed in chart. Plan . Admission and Anticipated Discharge Date Admission Date: March 09, 2025 Subjective postoperative day #2 status post open reduction cephalomedullary nailing left hip for left intertrochanteric hip fracture. Review of Systems Constitutional: no fever and no chills Respiratory: no cough and no dyspnea Cardiovascular: no chest pain, no dyspnea and no orthopnea Gastrointestinal: no abdominal pain, no nausea and no vomiting Physical Exam Physical Exam: Left hip dressings clean dry and intact. Patient wiggles all toes. Foot warm and well-perfused. calf soft, non-tender Results & Data Vital Signs (Past 12 Hours) Vital Signs Temp Pulse Resp BP Pulse Ox Pulse Ox O2 Del Method 03/11/25 02:00 93 03/10/25 20:37 Room Air 03/10/25 19:52 36.9 C 86 16 105/65 92 Room Air Laboratory Results Laboratory Results WBC 7.40 K/ul (4.8-10.8) 03/10/25 07:21 RBC 2.88 M/uL (4.20-5.40) L 03/10/25 07:21 Hgb 8.6 g/dl (12.0-16.0) L 03/10/25 07:21 Hct 25.6 % (37.0-47.0) L 03/10/25 07:21 MCV 88.9 fL (80.0-100.0) 03/10/25 07:21 MCH 29.9 pg (25.0-34.0) 03/10/25 07:21 MCHC 33.6 g/dL (32.0-36.0) 03/10/25 07:21 RDW Std Deviation 46.6 fL (36.4-46.3) H 03/10/25 07: RDW Coeff of Nichole 14.6 % (11.5-14.5) H 03/10/25 07:21 Plt Count 86 K/uL (130-400) L 03/10/25 07:21 MPV 10.9 fL (9.4-12.4) 03/10/25 07:21 Immature Gran % (Auto) 0.3 % 03/08/25 22:17 Neut % (Auto) 52.4 % 03/08/25 22:17 Lymph % (Auto) 34.2 % 03/08/25 22:17 [place] % (Auto) 9.9 % 03/08/25 22:17 Eos % (Auto) 2.6 % 03/08/25 22:17 Baso % (Auto) 0.6 % 03/08/25 22:17 Neut # (Auto) 3.80 K/uL (1.40-6.50) 03/08/25 22:17 Lymph # (Auto) 2.48 K/uL (1.20-3.40) 03/08/25 22:17 [place] # (Auto) 0.72 K/uL (0.11-0.59) H 03/08/25 22:17 Eos # (Auto) 0.19 K/uL (0.00-0.50) 03/08/25 22:17 Baso # (Auto) 0.04 K/uL (0.00-0.20) 03/08/25 22:17 Immature Gran # (Auto) 0.02 K/uL (0.01-0.20) 03/08/25 22:17 PT 11.9 Seconds (9.0-12.0) 03/08/25 22:17 INR 1.1 (0.9-1.1) 03/08/25 22:17 Sodium 136 mmol/L (136-145) 03/10/25 07:21 Potassium 4.0 mmol/L (3.5-5.1) 03/10/25 07:21 Chloride 103 mmol/L (98-107) 03/10/25 07:21 Carbon Dioxide 24 mmol/L (21-32) 03/10/25 07:21 Anion Gap 9 (3-11) 03/10/25 07:21 BUN 15 mg/dl (6-23) 03/10/25 07:21 Creatinine 0.92 mg/dl (0.6-1.2) 03/10/25 07:21 Est Cr Clr Drug Dosing 40.5 ml/min 03/10/25 07:21 eGFR 64.13 03/10/25 07:21 BUN/Creatinine Ratio 16.3 (10-20) 03/10/25 07:21 Glucose 137 mg/dl (70-99(Fasting)) H 03/10/25 07:21 POC Glucose 112 mg/dl (70-99) H 03/09/25 08:56 Calcium 8.4 mg/dl (8.6-10.3) L 03/10/25 07:21 Magnesium 1.7 mg/dl (1.7-2.4) 03/10/25 07:21 Total Bilirubin 0.6 mg/dl (0.2-1.0) 03/08/25 22:17 Direct Bilirubin 0.1 mg/dl (0-0.2) 03/08/25 22:17 AST 33 U/L (13-39) 03/08/25 22:17 ALT 23 U/L (7-52) 03/08/25 22:17 Alkaline Phosphatase 63 U/L (34-104) 03/08/25 22:17 Total Creatine Kinase 67 U/L (26-192) 03/08/25 22:17 Troponin I High Sens 7.8 pg/ml (0-14) 03/08/25 22:17 Total Protein 6.1 gm/dl (6.0-8.3) 03/08/25 22:17 Albumin 3.5 gm/dl (3.4-5.0) 03/08/25 22:17 Vitamin B12 248 pg/ml (180-914) 03/09/25 09:50 25-OH Vitamin D Total 29.1 ng/ml (30-100) L 03/09/25 04:08 TSH 9.806 uIu/ml (0.300-4.500) H 03/08/25 22:17 Free T4 0.88 ng/dl (0.61-1.60) 03/08/25 22:17 Free T3 1.75 pg/ml (2.3-4.2) L 03/10/25 07:21 Urine Color Yellow 03/08/25 23:39 Urine Appearance Clear (Clear) 03/08/25 23:39 Urine pH 5.5 (4.5-7.5) 03/08/25 23:39 Ur Specific [place] 1.021 (1.000-1.030) 03/08/25 23:39 Urine Protein 1+ (Negative) H 03/08/25 23:39 Urine Glucose (UA) Negative (Negative) 03/08/25 23:39 Urine Ketones Trace (Negative) H 03/08/25 23:39 Urine Blood Negative (Negative) 03/08/25 23:39 Urine Nitrite Negative (Negative) 03/08/25 23:39 Urine Bilirubin Negative (Negative) 03/08/25 23:39 Urine Urobilinogen Negative (Negative) 03/08/25 23:39 Ur Leukocyte Esterase Negative (Negative) 03/08/25 23:39 Urine WBC (Auto) 0-5 /hpf (0-5) 03/08/25 23:39 Urine RBC (Auto) 0-2 /hpf (0-2) 03/08/25 23:39 U Hyaline Cast (Auto) 0-2 /lpf (0-2) 03/08/25 23:39 U Epithel Cells (Auto) 0-2 /hpf (0-2) 03/08/25 23:39 Urine Bacteria (Auto) None Seen (None Seen) 03/08/25 23:39 Calcium Oxalate Crystal Present (None Prsent) A 03/08/25 23:39 Impressions Hip/Pelvis X-Ray 03/08/25 22:29 Exam(s): XR HIP + PELVIS, 1 view EXAM: XR Left Hip With Pelvis, 3 Views CLINICAL HISTORY: Hip trauma, fracture suspected, no prior imaging. TECHNIQUE: Three views of the left hip with pelvis. COMPARISON: CT pelvis 10/26/2024. FINDINGS: Bones are osteopenic. Acute impacted intertrochanteric and neck fracture through the proximal left femur with varus angulation of the distal fracture fragment. Left femoral head and acetabulum appear intact. No other fracture identified. Degenerative changes of the lumbar spine are present. Abundant stool throughout the colon. IMPRESSION: Acute impacted intertrochanteric and neck fracture through the proximal left femur with varus angulation of the distal fracture fragment. Electronically signed by: Manuelito Mtz M.D. 03/09/25 02:33 AM Chest X-Ray 03/08/25 23:36 Exam(s): XR CXR 1 VIEW EXAM: XR Chest, 1 View CLINICAL HISTORY: chest pain. TECHNIQUE: Frontal view of the chest. COMPARISON: CT chest 02-15-2025. FINDINGS: Heart is normal size. Lungs are hyperinflated. Mild diffuse interstitial prominence. Previously demonstrated lung nodules on CT are not distinctly visualized. No pleural effusion or pneumothorax. Bones are osteopenic. Degenerative changes of the thoracic spine. IMPRESSION: Hyperinflation. Interstitial lung disease. Previously demonstrated lung nodules on CT are not distinctly visualized. Electronically signed by: Manuelito Mtz M.D. 03/09/25 02:[address] 03/09/25 06:37 EXAM: CT pelvis wo con CLINICAL HISTORY: preop planning TECHNIQUE: Contiguous axial CT images of pelvis were obtained without intravenous contrast. Coronal and sagittal reconstructions were likewise performed and indicated to increase the sensitivity for detecting clinically relevant pathology. CT scan was performed according to ALARA (as low as reasonable achievable). COMPARISON: None. FINDINGS: Diffuse osteopenia noted. Comminuted displaced fracture is noted involving intertrochanteric region of left femur. No destructive osseous lesion. The visualized muscles and tendons appear grossly unremarkable. No cortical destruction to suggest osteomyelitis. No abscess formation. No significant joint effusion. There are no soft tissue masses. Normal subcutaneous adipose space. Mild osteoporotic compression collapse of visualized lower lumbar vertebrae. Left iliopsoas muscle appears mildly bulky as compared to its counter part. IMPRESSION: 1. Diffuse osteopenia noted. 2. Comminuted displaced fracture is noted involving intertrochanteric region of left femur. Electronically signed by Jose L Egan 03-09-2025 08:17 AM Femur X-Ray 03/09/25 17:52 EXAM: XR femur LT 2V routine CLINICAL HISTORY: post-op portable. TECHNIQUE: X-ray images of the left femur were obtained in anteroposterior (AP) and lateral projections. COMPARISON: Pre-op XR dated 03/09/2025. FINDINGS: Bone Structure: Diffuse osteopenia in visualized bones. Post-surgical changes in the form of an intramedullary nail in the left femur. Surgical hardware is intact and in situ. Well-approximated fracture of the intertrochanteric region. No significant displacement. Femoral shaft and distal regions are normal in structure and alignment. Joint and Articular Surfaces: Mild degenerative changes in the hip joint. Soft Tissues: Soft tissue edema in the thigh with foci of subcutaneous emphysema due to recent intervention. Vascular calcification IMPRESSION: 1. Interval post-surgical changes. 2. Well-approximated fracture of the left femoral intertrochanteric region without significant displacement. Surgical hardware is intact and well-positioned. 3. Osteoporosis. 4. Mild degenerative changes in the left hip joint. Disclaimer: A subtle bone abnormality or fracture may not be readily apparent on X-rays. Clinical correlation and further imaging, including CT, MRI, or follow-up X-rays, are advised if clinically warranted. Electronically signed by Timo Zuluaga 03-09-2025 7:44 PM
[2025-03-11] MEDS: NON-FORMULARY PATIENT'S OWN MED PO SCH (07:55)
--- NOTE | 2025-03-11 07:56 | Hospitalist Progress Note ---
Date of Service March 11, 2025 Assessment & Plan (1) Osteoporotic hip fracture: Plan 79-year-old female PMHx HTN, hypothyroidism, HLD, GERD, hyperactive bladder, OP, COPD, tobacco abuse, and neuroendocrine carcinoma presenting s/p ground-level fall and complaining of L hip pain on day [employer]. ED evaluation reveals no leukocytosis, H&H 11.4/35.2; PT/INR WNL; CMP with glucose 57, calcium 8.3; CK 67; troponin 7.8; TSH 9.86, pending free T4; UA with some protein and ketones but no infection; hip/pelvis XR acute impacted intertrochanteric and neck fracture through proximal L femur, varus angulation of distal fracture fragment; CXR hyperinflation, ILD, nodule not visualized; EKG NSR, 67 bpm.; Provided with Zofran 4 mg IV, [place] morphine 0.25 mg IV, fentanyl citrate 50 mcg IV, and acetaminophen 1 g IV in ED. EKG w/ NSR, CXR w hyperinflation, interstitial lung disease #Osteoporotic LEFT hip fracture Pt presenting for GLF, landing on L hip and on ground ~ 2 hours; current complaint some L hip pain, increased with any movement. Baseline cane use but does have a walker. Imaging w/ xray, CT noting comminuted displaced fracture is noted involving intertrochanteric region of left femur. Diffuse osteopenia Orthopedics consulted, Dr Pemberton s/p Open Reduction, nailing of LEFT hip by Dr Pemberton on 03/09. EBL 300cc WBC wnl, afebrile (low grade temp 37.7C this morning) Hgb 10.7--> 8.6 and was on continued IVF through 03/10 and suspect acute blood loss anemia and aspect of dilution from IVF. Repeat hgb stable 8.6 Linda to be removed pending ambulation w/ PT, NWB LLE w/ walker Vit D low normal, PO started Pain control - oxycodone 5mg added PO, tylenol 1gm IVq8 fell off and will make 1gm BID scheduled w/ additional prn if needed Bowel regimen- colace BID, will change miralax to scheduled daily and add senna/monitor DVT proph: lovenox SQ once daily PT/OT rec SNF, CM notified. Patient preference [place] Cares #Hypoglycemia Found to be hypoglycemic on arrival, Glu 57. Reports did not eat dinner the day of admission/poor intake reported. Not diabetic/no meds at baseline Hypoglycemia protocol ordered, BSG q4h while NPO and BSGs acceptable Monitor for any issues #COPD/tobacco use H/o COPD, 1L with exertion, 2L O2 at night per baseline (however denies using at night) Follows with pulmonology, most recent visit 02/23/2025. >85-yhry-pexg smoking history CXR hyperinflation, ILD, nodule not visualized (from prior CT), no exacerbation noted Continue home meds/trelegy equivalent, albuterol HFA as needed and duonebs if needed Continue incentive spirometry to prevent issues. Remains on wellbutrin/patches f or tobacco use and is actively trying to stop. Monitor for any issues #Hypothyroidism TSH elevated 9.806, T4 wnl but checked t3 w/ recent adj as well and LOW 1.75 --> Recent adj by pcp w/ synthroid to 75mcg and discussed TSH and rec'd to increase --> Synthroid further increased to 88mcg and rec for repeat TFT outpt/ PCP 4- 6wks #HTN Currently holding losartan per PCP (02/26/2025, was on 25mg but BP was below goal) BP elevated on admit likely 2nd to fall/fx/pain, currently 105/60 and will remain OFF/monitor. Likely should be stopped at sd #B12 deficiency Checked w/ balance issues at baseline and ws LOW normal 248 -Started 1000mcg PO replacement and would continue at sd. #HLD- Crestor #GERD/Vu's- Pantoprazole #OP- Fosamax #Neuroendocrine tumor- S/p resection 2011, octreotide monthly w/ CCP DVT proph: SCDs ordered, lovenox SQ added post-op per discussion w/ ortho Dispo: need for SNF, remains inpatient. CM to follow. Working on PT/bowel regimen. Needs inc rx Synthroid at dc Admission and Anticipated Discharge Date Admission Date: March 09, 2025 Supervising Physician Co-Signing Physician Notes The patient was not seen by me. The chart was reviewed. Case discussed with ELLA Barreto. Agree with assessment and plan Subjective Eval this morning, per nursing little confusion however ? delirium or waking up too early. Patient alert to person, knows in hospital, year 2024, that she fell and broke her hip and that she had surgery. Pain stable at present and reports "none if I don't move". Discussed bowels, is passing gas but no BM yet which she reports is not unusual if shes not up/moving around. Ice pack to be changed to hip, will continue. No fever/chills, chest pain, shortness of breath, abdominal pain or nausea at this time. Questions/concerns addressed. Physical Exam Physical Exam: General: 79yo elderly female, thin, resting, NAD, no family in room today HEENT: head atraumatic, normocephalic, mm improved, trachea midline Resp: even/unlabored, no wheezing, diminished in baseline, on room air CV: RRR, no significant m/r/g, no pitting edema, pulses present, cap refill wnl GI: +BS, soft/NT : linda w/ clear yellow urine MSK/Neuro: LEFT thigh with slight edema, ice pack in place (warm, changing w/ aide), dressings c/d/i, appropriate tenderness, no significant hematoma, no erythema/cellulitis, toes mobile, compartments soft, plantar/dorsiflexion intact, pulses present Psych: AOx3, cooperative with exam Results & Data Results & Data Vital Signs (Past 12 Hours) Vital Signs Temp Pulse Resp BP Pulse Ox Pulse Ox O2 Del Method 03/11/25 07:10 37.7 C H 94 H 20 105/60 91 Room Air 03/11/25 02:00 93 03/10/25 20:37 Room Air Laboratory Results 03/11/25 03/10/25 Range/Units 08:15 07:21 WBC 7.78 (4.8-10.8) K/ul RBC 2.84 L (4.20-5.40) M/uL Hgb 8.6 L (12.0-16.0) g/dl Hct 25.3 L (37.0-47.0) % MCV 89.1 (80.0-100.0) fL MCH 30.3 (25.0-34.0) pg MCHC 34.0 (32.0-36.0) g/dL RDW Std Deviation 49.4 H (36.4-46.3) fL RDW Coeff of Nichole 15.3 H (11.5-14.5) % Plt Count 96 L (130-400) K/uL MPV 10.8 (9.4-12.4) fL Immature Gran % (Auto) 0.4 % Neut % (Auto) 69.5 % Lymph % (Auto) 20.4 % [place] % (Auto) 9.3 % Eos % (Auto) 0.3 % Baso % (Auto) 0.1 % Neut # (Auto) 5.41 (1.40-6.50) K/uL Lymph # (Auto) 1.59 (1.20-3.40) K/uL [place] # (Auto) 0.72 H (0.11-0.59) K/uL Eos # (Auto) 0.02 (0.00-0.50) K/uL Baso # (Auto) 0.01 (0.00-0.20) K/uL Immature Gran # (Auto) 0.03 (0.01-0.20) K/uL Sodium 134 L 136 (136-145) mmol/L Potassium 3.8 4.0 (3.5-5.1) mmol/L Chloride 102 103 (98-107) mmol/L Carbon Dioxide 26 24 (21-32) mmol/L Anion Gap 6 9 (3-11) BUN 19 15 (6-23) mg/dl Creatinine 1.00 0.92 (0.6-1.2) mg/dl Est Cr Clr Drug Dosing 37.3 40.5 ml/min eGFR 58.02 64.13 BUN/Creatinine Ratio 19.0 16.3 (10-20) Glucose 98 137 H (70-99(Fasting)) mg/dl Calcium 7.9 L 8.4 L (8.6-10.3) mg/dl Magnesium 1.8 1.7 (1.7-2.4) mg/dl Free T3 1.75 L (2.3-4.2) pg/ml PG Care Time/CCT Total # of Minutes Spent Total Time Spent with Patient: Total time spent is greater than 50% in coordination of care (as documented) at patient's floor/unit and/or counseling patient: Coding Level of Care Code 09950 SUB INP/OBS CARE 3/50MIN Diagnoses Osteoporotic hip fracture M80.059A
[2025-03-11] MEDS: ACETAMINOPHEN 500 MG TAB PO SCH (07:58)
[2025-03-11 08:40] LABS: Basophils # (auto) 0.01 K/uL (0.00-0.20); Basophils % (auto) 0.1 %; Eosinophils # (auto) 0.02 K/uL (0.00-0.50); Eosinophils % (auto) 0.3 %; Hematocrit (blood only) 25.3 % (37.0-47.0); Hemoglobin 8.6 g/dl (12.0-16.0); Immature Granulocytes # (auto) 0.03 K/uL (0.01-0.20); Immature Granulocytes % (auto) 0.4 %; Lymphocytes # (auto) 1.59 K/uL (1.20-3.40); Lymphocytes % (auto) 20.4 %; Mean Corpuscular Hemoglobin 30.3 pg (25.0-34.0); Mean Corpuscular Volume 89.1 fL (80.0-100.0); Mean Platelet Volume 10.8 fL (9.4-12.4); Monocytes # (auto) 0.72 K/uL (0.11-0.59); Monocytes % (auto) 9.3 %; Neutrophils # (auto) 5.41 K/uL (1.40-6.50); Neutrophils % (auto) 69.5 %; Platelet Count 96 K/uL (130-400); RDW Coefficient of Variation 15.3 % (11.5-14.5); RDW Standard Deviation 49.4 fL (36.4-46.3); Red Blood Count 2.84 M/uL (4.20-5.40); White Blood Count 7.78 K/ul (4.8-10.8)
[2025-03-11 08:52] LABS: Calcium 7.9 mg/dl (8.6-10.3); Creatinine Clr Calc Pharmacy 37.3 ml/min; Magnesium 1.8 mg/dl (1.7-2.4); Potassium 3.8 mmol/L (3.5-5.1)
[2025-03-11] MEDS: SENNA 8.6 MG TAB PO SCH (09:55)
[2025-03-11] MEDS: POLYETHYLENE (MIRALAX) 17 GM PACK PO SCH (09:55)
--- NOTE | 2025-03-12 08:03 | Fluoroscopy Report ---
FL femur LT 2V CLINICAL HISTORY: left troch nail COMPARISON STUDY: 03/09/2025 FLUOROSCOPY TIME: 274 seconds FLUOROSCOPY IMAGES: 7 EXPOSURE DOSE: 47 mGy FINDINGS: Fluoroscopy was provided for left femoral gamma nail. IMPRESSION: Intraoperative fluoroscopy. ACT 112: Negative or not required by law. Electronically signed by: Umer Hendricks M.D. 03/12/2025 8:02 AM
[2025-03-12 11:59] LABS: Mean Corpuscular Hemoglobin 29.9 pg (25.0-34.0); Mean Corpuscular Hgb Conc 33.3 g/dL (32.0-36.0); Mean Corpuscular Volume 89.6 fL (80.0-100.0); Mean Platelet Volume 10.8 fL (9.4-12.4); Platelet Count 77 K/uL (130-400); RDW Standard Deviation 48.7 fL (36.4-46.3); Red Blood Count 2.68 M/uL (4.20-5.40); White Blood Count 5.45 K/ul (4.8-10.8)
[2025-03-12 12:14] LABS: BUN Creatinine Ratio 15.5 (10-20); Calcium 7.8 mg/dl (8.6-10.3); Creatinine Clr Calc Pharmacy 38.4 ml/min; Potassium 3.6 mmol/L (3.5-5.1)
--- NOTE | 2025-03-12 17:28 | Hospitalist Progress Note ---
"Date of Service March 12, 2025 Assessment & Plan (1) Osteoporotic hip fracture: Plan 79-year-old female PMHx HTN, hypothyroidism, HLD, GERD, hyperactive bladder, OP, COPD, tobacco abuse, and neuroendocrine carcinoma presenting s/p ground-level fall and complaining of L hip pain on day [employer]. ED evaluation reveals no leukocytosis, H&H 11.4/35.2; PT/INR WNL; CMP with glucose 57, calcium 8.3; CK 67; troponin 7.8; TSH 9.86, pending free T4; UA with some protein and ketones but no infection; hip/pelvis XR acute impacted intertrochanteric and neck fracture through proximal L femur, varus angulation of distal fracture fragment; CXR hyperinflation, ILD, nodule not visualized; EKG NSR, 67 bpm.; Provided with Zofran 4 mg IV, [place] morphine 0.25 mg IV, fentanyl citrate 50 mcg IV, and acetaminophen 1 g IV in ED. EKG w/ NSR, CXR w hyperinflation, interstitial lung disease #Osteoporotic LEFT hip fracture Pt presenting for GLF, landing on L hip and on ground ~ 2 hours; current complaint some L hip pain, increased with any movement. Baseline cane use but does have a walker. Imaging w/ xray, CT noting comminuted displaced fracture is noted involving intertrochanteric region of left femur. Diffuse osteopenia Orthopedics consulted, Dr Pemberton s/p Open Reduction, nailing of LEFT hip by Dr Pemberton on 03/09. EBL 300cc WBC wnl, afebrile (low grade temp 37.7C this morning) Hgb 10.7--> 8.6 and was on continued IVF through 03/10 and suspect acute blood loss anemia and aspect of dilution from IVF. Repeat hgb stable 8.6 Vance to be removed pending ambulation w/ PT, NWB LLE w/ walker Vit D low normal, PO started Pain control - oxycodone 5mg added PO, tylenol 1gm IVq8 fell off and will make 1gm BID scheduled w/ additional prn if needed Bowel regimen- colace BID, will change miralax to scheduled daily and add senna/monitor DVT proph: lovenox SQ once daily PT/OT rec SNF, CM notified. Patient preference [facility] Update on 5/5: [facility] expected to be able to accept patient this week; will let CM know when to submit SNF auth #Anemia | thrombocytopenia Patient's Hgb continues to downtrend 8.6 -> 8.0 Platelet count dropped from 96 -> 77 No signs of active bleed on clinical exam on 03/12 However, out of an abundance of caution will hold a.m. enoxaparin on 03/13 Spot-check of H&H ordered Continue to trend CBC #Hypoglycemia Found to be hypoglycemic on arrival, Glu 57. Reports did not eat dinner the day of admission/poor intake reported. Not diabetic/no meds at baseline Hypoglycemia protocol ordered, BSG q4h while NPO and BSGs acceptable Monitor for any issues #COPD/tobacco use H/o COPD, 1L with exertion, 2L O2 at night per baseline (however denies using at night) Follows with pulmonology, most recent visit 02/23/2025. >[id number] smoking history CXR hyperinflation, ILD, nodule not visualized (from prior CT), no exacerbation noted Continue home meds/trelegy equivalent, albuterol HFA as needed and duonebs if needed Continue incentive spirometry to prevent issues. Remains on wellbutrin/patches for tobacco use and is actively trying to stop. Monitor for any issues #Hypothyroidism TSH elevated 9.806, T4 wnl but checked t3 w/ recent adj as well and LOW 1.75 --> Recent adj by pcp w/ synthroid to 75mcg and discussed TSH and rec'd to increase --> Synthroid further increased to 88mcg and rec for repeat TFT outpt/ PCP 4- 6wks #HTN Currently holding losartan per PCP (02/26/2025, was on 25mg but BP was below goal) BP elevated on admit likely 2nd to fall/fx/pain, currently 105/60 and will remain OFF/monitor. Likely should be stopped at dc #B12 deficiency Checked w/ balance issues at baseline and ws LOW normal 248 -Started 1000mcg PO replacement and would continue at vt. #HLD- Crestor #GERD/Vu's- Pantoprazole #OP- Fosamax #Neuroendocrine tumor- S/p resection 2011, octreotide monthly w/ CCP DVT proph: SCDs ordered, lovenox SQ added post-op per discussion w/ ortho Dispo: need for SNF, remains inpatient. CM to follow. Working on PT/bowel regimen. Needs inc rx Synthroid at dc Admission and Anticipated Discharge Date Admission Date: March 09, 2025 Subjective Mrs. Krishnan is resting peacefully in bed and has no new complaints this morning. She is still having pain in her left hip, which she rates a 3/10 when she lies still. Occasionally it will radiate down her left leg. She is okay when she lies still, but does report that she had pain with movements when working with physical therapy. Pain medication is currently managing her pain well. Patient previously ambulated with a cane prior to her fall. She had been taking hydrocodone in the past for her lower back pain, but again, her her pain is currently managed. Her only other concern at this time is constipation, as her last bowel movement was 2 days ago. ROS: Patient endorses left hip pain, nausea, and change in bowel habits (constipation x 2 days) Patient denies fever, chills, night sweats, headache, chest pain, chest palpitations, SOB, abdominal pain, N/V/D, or numbness or tingling going down the left leg. Review of Systems Review of Systems: See HPI above Physical Exam Physical Exam: General: no acute distress; pleasant affect; non-toxic appearing; frail appearing; cooperative; SpO2 93% on RA HEENT: normocephalic, atraumatic; no scleral icterus; PERRLA w/ EOMs intact; vision and hearing grossly intact Neck: supple; no lymphadenopathy; trachea midline Skin: warm, dry without signs of tenting; no cyanosis; no rashes, bruising, lesions, or erythema noted CV: chest wall NTP; RRR; S1/S2 normal; no murmurs/rubs/gallops; pulses intact and symmetric at radial, DP, and PT Lungs: no acute respiratory distress; symmetrical chest wall expansion; clear breath sounds across all lung plascencia w/o adventitious sounds; no wheezing ABD: Soft, NTP; BS present; no rebound/guarding; no distention LLE: Left hip is well-dressed without signs of erythema or drainage; mild left lateral hip swelling; mildly TTP MSK: no tics or fasciculations; no edema noted in the LEs b/l, nonerythematous; patient demonstrates ability to wiggle toes bilaterally Neuro: A&Ox3; normal mood and affect; fluent speech; no focal deficits; sensation intact and symmetric in the lower extremities bilaterally assessed via light touch Results & Data Results & Data Vital Signs (Past 12 Hours) Vital Signs Temp Pulse Resp BP BP Pulse Ox Pulse Ox 03/12/25 16:27 36.9 C 84 17 104/66 96 03/12/25 07:40 03/12/25 07:18 37.1 C 82 18 107/64 93 03/12/25 07:00 95 O2 Del Method O2 Del Method 03/12/25 16:27 Room Air 03/12/25 07:40 Room Air 03/12/25 07:18 Room Air 03/12/25 07:00 Room Air, Non-rebreather PG Care Time/CCT Total # of Minutes Spent Total Time Spent with Patient: Total time spent is greater than 50% in coordination of care (as documented) at patient's floor/unit and/or counseling patient: [place] [address] SUB INP/OBS CARE 2/35MIN Patient Type Established History Comprehensive Exam Comprehensive Medical Decision Making Moderate Complexity Diagnoses Osteoporotic hip fracture M80.059A"
[2025-03-12 18:14] LABS: Hematocrit (blood only) 26.8 % (37.0-47.0); Hemoglobin 8.9 g/dl (12.0-16.0)
[2025-03-13 07:49] LABS: Hematocrit (blood only) 26.4 % (37.0-47.0); Hemoglobin 8.7 g/dl (12.0-16.0); Mean Corpuscular Hemoglobin 29.5 pg (25.0-34.0); Mean Corpuscular Volume 89.5 fL (80.0-100.0); Mean Platelet Volume 11.1 fL (9.4-12.4); Platelet Count 105 K/uL (130-400); RDW Coefficient of Variation 15.2 % (11.5-14.5); RDW Standard Deviation 49.1 fL (36.4-46.3); Red Blood Count 2.95 M/uL (4.20-5.40); White Blood Count 5.75 K/ul (4.8-10.8)
--- NOTE | 2025-03-13 12:35 | XRay Report ---
XR tibia fibula LT 2V CLINICAL HISTORY: S/p fall; fx r/o COMPARISON: None FINDINGS: No fracture or dislocation seen at the left tibia or fibula. IMPRESSION: No fracture seen. ACT 112: Negative or not required by law. Electronically signed by: Umer Hendricks M.D. 03/13/2025 12:34 PM
[2025-03-13] MEDS: ENOXAPARIN INJ 40 MG/0.4 ML SYR SQ ONE (13:52)
--- NOTE | 2025-03-13 14:29 | Hospitalist Progress Note ---
Date of Service March 13, 2025 Assessment & Plan (1) Osteoporotic hip fracture: Plan 79-year-old female PMHx HTN, hypothyroidism, HLD, GERD, hyperactive bladder, OP, COPD, tobacco abuse, and neuroendocrine carcinoma presenting s/p ground-level fall and complaining of L hip pain on day [employer]. ED evaluation reveals no leukocytosis, H&H 11.4/35.2; PT/INR WNL; CMP with glucose 57, calcium 8.3; CK 67; troponin 7.8; TSH 9.86, pending free T4; UA with some protein and ketones but no infection; hip/pelvis XR acute impacted intertrochanteric and neck fracture through proximal L femur, varus angulation of distal fracture fragment; CXR hyperinflation, ILD, nodule not visualized; EKG NSR, 67 bpm.; Provided with Zofran 4 mg IV, [place] morphine 0.25 mg IV, fentanyl citrate 50 mcg IV, and acetaminophen 1 g IV in ED. EKG w/ NSR, CXR w hyperinflation, interstitial lung disease #Osteoporotic LEFT hip fracture Pt presenting for GLF, landing on L hip and on ground ~ 2 hours; current complaint some L hip pain, increased with any movement. Baseline cane use but does have a walker. Imaging w/ xray, CT noting comminuted displaced fracture is noted involving intertrochanteric region of left femur. Diffuse osteopenia Orthopedics consulted, Dr Pemberton s/p Open Reduction, nailing of LEFT hip by Dr Pemberton on 03/09. EBL 300cc WBC WNL Vance to be removed pending ambulation w/ PT, NWB LLE w/ walker Vit D low normal, PO started Pain control - oxycodone 5mg added PO, tylenol 1gm IVq8 fell off and will make 1gm BID scheduled w/ additional prn if needed Bowel regimen- colace BID, will change miralax to scheduled daily and add senna/monitor DVT proph: lovenox SQ once daily PT/OT rec SNF, CM notified Per CM, accepted by [facility] on 03/13, with potential discharge on 03/15 #Anemia | thrombocytopenia Patient's Hgb continues to downtrend 8.6 -> 8.0 -> 8.7 Platelet count dropped from 96 -> 77 -> 105 Contusion noted on left lower extremity; however, no fracture seen on XR tibia- fibula LT on 03/13 Enoxaparin initially held morning of 03/13; okay to resume as labs are uptrending Continue to monitor with daily CBC #Hypoglycemia Found to be hypoglycemic on arrival, Glu 57. Reports did not eat dinner the day of admission/poor intake reported. Not diabetic/no meds at baseline Hypoglycemia protocol ordered Monitor for any issues #COPD/tobacco use H/o COPD, 1L with exertion, 2L O2 at night per baseline (however denies using at night) Follows with pulmonology, most recent visit 02/23/2025. >51-[id number]-kwie smoking history CXR hyperinflation, ILD, nodule not visualized (from prior CT), no exacerbation noted Continue home meds/trelegy equivalent, albuterol HFA as needed and duonebs if needed Continue incentive spirometry to prevent issues. Remains on wellbutrin/patches for tobacco use and is actively trying to stop. Monitor for any issues #Hypothyroidism TSH elevated 9.806, T4 wnl but checked t3 w/ recent adj as well and LOW 1.75 --> Recent adj by pcp w/ synthroid to 75mcg and discussed TSH and rec'd to increase --> Synthroid further increased to 88mcg and rec for repeat TFT outpt/ PCP 4- 6wks #HTN Currently holding losartan per PCP (02/26/2025, was on 25mg but BP was below goal) BP elevated on admit likely 2nd to fall/fx/pain, currently 105/60 and will remain OFF/monitor. Likely should be stopped at [place] #B12 deficiency Checked w/ balance issues at baseline and ws LOW normal 248 -Started 1000mcg PO replacement and would continue at [place]. #HLD- Crestor #GERD/Vu's- Pantoprazole #OP- Fosamax #Neuroendocrine tumor- S/p resection 2011, octreotide monthly w/ CCP DVT proph: SCDs ordered, lovenox SQ added post-op per discussion w/ ortho Dispo: Continued stay on MedSurg. CM to follow. Working on PT/bowel regimen. Accepted at ; expected discharge on 03/15 Admission and Anticipated Discharge Date Admission Date: March 09, 2025 Subjective Mrs. Waters is resting peacefully in bed this morning. She reports that she slept "really good" last night and has been taking catnaps this morning. She has been eating and drinking well, and reports her left hip pain is well-managed at this time. She rates the pain 3 out of 10 at present while lying flat in bed, but does report she still having pain whenever physical therapy gets her up on the side of the bed. She reports that every day, she is feeling a little bit better. ROS: Patient endorses lightheadedness when sitting up on the edge of the bed, and left hip pain that is worse with movements. Patient denies fever, chills, night sweats, headache, chest pain, chest palpitations, SOB, cough, abdominal pain, N/V/D, urinary symptoms, saddle anesthesia, or numbness or tingling going down the legs. Review of Systems Review of Systems: See HPI above Physical Exam Physical Exam: General: no acute distress; pleasant affect; non-toxic appearing; frail appearing; cooperative; SpO2 92% on RA HEENT: normocephalic, atraumatic; no scleral icterus; PERRLA; vision and hearing intact Neck: supple; no lymphadenopathy; trachea midline Skin: warm, dry without signs of tenting; no cyanosis CV: chest wall NTP; RRR; S1/S2 normal; no murmurs/rubs/gallops; pulses intact and symmetric at radial, DP, and PT Lungs: no acute respiratory distress; symmetrical chest wall expansion; clear breath sounds across all lung plascencia w/o adventitious sounds; no wheezing ABD: Soft, NTP; BS present; no rebound/guarding; no distention LLE: Dressing along the left hip is without signs of erythema or infection; left hip is TTP; left parsons contusion noted, TTP : Vance in place draining clear yellow urine MSK: no tics or fasciculations; no edema noted in the LEs b/l, nonerythematous; patient demonstrates ability to wiggle toes bilaterally Neuro: A&Ox3; normal mood and affect; fluent speech; no focal deficits; patient report sensation is intact and symmetric in lower extremity bilaterally assessed via light touch Results & Data Results & Data Vital Signs (Past 12 Hours) Vital Signs Temp Pulse Resp BP Pulse Ox Pulse Ox O2 Del Method 03/13/25 12:13 92 03/13/25 09:30 Room Air 03/13/25 07:25 36.8 C 86 18 118/72 91 Room Air 03/13/25 04:00 95 O2 Del Method 03/13/25 12:13 Room Air 03/13/25 09:30 03/13/25 07:25 03/13/25 04:00 Room Air, Non-rebreather PG Care Time/CCT Total # of Minutes Spent Total Time Spent with Patient: Total time spent is greater than 50% in coordination of care (as documented) at patient's floor/unit and/or counseling patient: Coding [place] [address] SUB INP/OBS CARE 2/35MIN Patient Type Established History Comprehensive Exam Comprehensive Medical Decision Making Moderate Complexity Diagnoses Osteoporotic hip fracture M80.059A
[2025-03-13] MEDS: POLYETHYLENE (MIRALAX) 17 GM PACK PO PRN (20:06)
--- NOTE | 2025-03-14 09:39 | Hospitalist Progress Note ---
"Date of Service March 14, 2025 Assessment & Plan (1) Osteoporotic hip fracture: Plan 79-year-old female PMHx HTN, hypothyroidism, HLD, GERD, hyperactive bladder, OP, COPD, tobacco abuse, and neuroendocrine carcinoma presenting s/p ground-level fall and complaining of L hip pain on day [employer]. Left hip fracture noted on imaging on 03/08. S/p open reduction with Dr. Pemberton on 03/09. Awaiting SNF placement. #Osteoporotic LEFT hip fracture Pt presenting for GLF, landing on L hip and on ground ~ 2 hours; current complaint some L hip pain, increased with any movement. Baseline cane use but does have a walker. Imaging w/ xray, CT noting comminuted displaced fracture is noted involving intertrochanteric region of left femur. Diffuse osteopenia Orthopedics consulted, Dr Pemberton s/p Open Reduction, nailing of LEFT hip by Dr Pemberton on 03/09. EBL 300cc WBC WNL Vance to be removed pending ambulation w/ PT, NWB LLE w/ walker Vit D low normal, PO started Pain control - oxycodone 5mg added PO, tylenol 1gm IVq8 fell off and will make 1gm BID scheduled w/ additional prn if needed Bowel regimen- colace BID, will change miralax to scheduled daily and add senna/monitor DVT proph: lovenox SQ once daily PT/OT rec SNF, CM notified Per CM, accepted by [facility] on 03/[facility], with potential discharge on 03/15 #Anemia | thrombocytopenia Patient's Hgb continues to downtrend 8.6 -> 8.0 -> 8.7 -> 9.1 Platelet count dropped from 96 -> 77 -> 105 -> 136 Contusion noted on left lower extremity; however, no fracture seen on XR tibia- fibula LT on 03/13 Okay to continue enoxaparin Continue to monitor with daily CBC #Hypoglycemia (resolved) Found to be hypoglycemic on arrival, Glu 57. Reports did not eat dinner the day of admission/poor intake reported. Not diabetic/no meds at baseline Hypoglycemia protocol ordered Monitor for any issues #COPD/tobacco use H/o COPD, 1L with exertion, 2L O2 at night per baseline (however denies using at night) Follows with pulmonology, most recent visit 02/23/2025. >66-[id number]-[id number] smoking history CXR hyperinflation, ILD, nodule not visualized (from prior CT), no exacerbation noted Continue home meds/trelegy equivalent, albuterol HFA as needed and duonebs if n eeded Continue incentive spirometry to prevent issues. Remains on wellbutrin/patches for tobacco use and is actively trying to stop. Monitor for any issues #Hypothyroidism TSH elevated 9.806, T4 wnl but checked t3 w/ recent adj as well and LOW 1.75 --> Recent adj by pcp w/ synthroid to 75mcg and discussed TSH and rec'd to increase --> Synthroid further increased to 88mcg and rec for repeat TFT outpt/ PCP 4- 6wks #HTN Currently holding losartan per PCP (02/26/2025, was on 25mg but BP was below goal) BP elevated on admit likely 2nd to fall/fx/pain, currently 105/60 and will remain OFF/monitor. Likely should be stopped at [place] #B12 deficiency Checked w/ balance issues at baseline and ws LOW normal 248 -Started 1000mcg PO replacement and would continue at [place]j. #HLD- Crestor #GERD/Vu's- Pantoprazole #OP- Fosamax #Neuroendocrine tumor- S/p resection 2011, octreotide monthly w/ CCP DVT proph: SCDs ordered, lovenox SQ added post-op per discussion w/ ortho Dispo: Continued stay on MedSurg. CM to follow. Working on PT/bowel regimen. Accepted at ; expected discharge on 03/15 Admission and Anticipated Discharge Date Admission Date: March 09, 2025 Subjective Mrs. Waters is doing well this morning. She did have difficulty sleeping last night, and reports she woke up at 2 AM with nausea and back pain. She was given medication at that time, and reports that her nausea has largely resolved. She still having some mild lower back pain, which she attributes to laying in bed. Her left hip pain is currently 8/10. No radiation when she lies still, but does have radiation down the legs when she is up working with PT. Patient reports she has been eating and drinking okay this morning. ROS: Patient endorses nausea (resolved), lower back pain, and left hip pain. Patient denies fever, chills, night sweats, dizziness, lightheadedness, headach e, chest pain, chest palpitations, SOB, pleuritic CP, abdominal pain, vomiting, or numbness or tingling in her legs. Updated patient regarding insurance authorization for SNF placement, expected discharge to [facility] tomorrow on 03/15. Review of Systems Review of Systems: See HPI above Physical Exam Physical Exam: General: no acute distress; pleasant affect; non-toxic appearing; frail appearin g; cooperative; SpO2 95% on RA HEENT: normocephalic, atraumatic; no scleral icterus; PERRLA; vision and hearing intact Neck: supple; no lymphadenopathy; trachea midline Skin: warm, dry without signs of tenting; no cyanosis CV: chest wall NTP; RRR; S1/S2 normal; no murmurs/rubs/gallops; pulses intact and symmetric at radial, DP, and PT Lungs: no acute respiratory distress; symmetrical chest wall expansion; clear breath sounds across all lung plascencia w/o adventitious sounds; no wheezing ABD: Soft, NTP; BS present; no rebound/guarding; no distention LLE: Dressing along the left hip is without signs of erythema or infection; left hip is NTP today MSK: no tics or fasciculations; no edema noted in the LEs b/l, nonerythematous; patient demonstrates ability to wiggle toes bilaterally Neuro: A&Ox3; normal mood and affect; fluent speech; no focal deficits; patient report sensation is intact and symmetric in lower extremity bilaterally assessed via light touch Results & Data Results & Data Vital Signs (Past 12 Hours) Vital Signs Temp Pulse Resp BP Pulse Ox Pulse Ox O2 Del Method 03/14/25 07:44 36.8 C 84 15 115/68 95 Room Air 03/14/25 04:00 94 03/14/25 00:00 94 O2 Del Method 03/14/25 07:44 03/14/25 04:00 Room Air 03/14/25 00:00 Room Air PG Care Time/CCT Total # of Minutes Spent Total Time Spent with Patient: Total time spent is greater than 50% in coordination of care (as documented) at patient's floor/unit and/or counseling patient: C[place] [address] SUB INP/OBS CARE 25MIN Patient Type Established History Detailed Exam Detailed Medical Decision Making Low Complexity Diagnoses Osteoporotic hip fracture M80.059A"
[2025-03-14 14:28] LABS: Hematocrit (blood only) 27.6 % (37.0-47.0); Hemoglobin 9.1 g/dl (12.0-16.0); Mean Corpuscular Hemoglobin 29.8 pg (25.0-34.0); Mean Corpuscular Volume 90.5 fL (80.0-100.0); Mean Platelet Volume 10.6 fL (9.4-12.4); Platelet Count 136 K/uL (130-400); RDW Coefficient of Variation 14.8 % (11.5-14.5); RDW Standard Deviation 48.2 fL (36.4-46.3); Red Blood Count 3.05 M/uL (4.20-5.40); White Blood Count 5.56 K/ul (4.8-10.8)
[2025-03-14 14:45] LABS: BUN Creatinine Ratio 15.8 (10-20); Calcium 8.1 mg/dl (8.6-10.3); Creatinine Clr Calc Pharmacy 36.9 ml/min; Potassium 3.5 mmol/L (3.5-5.1)
[2025-03-14 19:48] VITALS: RESP 16
--- NOTE | 2025-03-15 07:54 | Discharge Summary ---
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 Left hip fracture noted on imaging on 03/08. S/p open reduction with Dr. Pemberton on 03/09. Patient being transferred to on 03/15 for SNF placement. Day of discharge 03/15: Patient reports she is doing well this morning, and is eager to had to SNF. She is still having left hip pain. After sitting up and getting on the side of the bed, she reports her pain is 8/10, with radiation down to the ankle. Worse with movements. Other than that, she has had no setbacks overnight. No fevers. Not feeling dizzy or lightheaded when sitting on the side of the bed. Overall, she is doing well this morning. ROS: Patient endorses left hip pain. Patient denies fever, chills, night sweats, dizziness/lightheadedness, headache, CP, SOB, abdominal pain, N/V/D, or changes in urinary/bowel habits. #Osteoporotic LEFT hip fracture Pt presenting for GLF, landing on L hip and on ground ~ 2 hours; current complaint some L hip pain, increased with any movement. Baseline cane use but does have a walker. Imaging w/ xray, CT noting comminuted displaced fracture is noted involving intertrochanteric region of left femur. Diffuse osteopenia Orthopedics consulted, Dr Pemberton s/p Open Reduction, nailing of LEFT hip by Dr Pemberton on 03/09. EBL 300cc WBC WNL Vance to be removed pending ambulation w/ PT, NWB LLE w/ walker Vit D low normal, PO started Pain control - oxycodone 5mg added PO, tylenol 1gm IVq8 fell off and will make 1gm BID scheduled w/ additional prn if needed Bowel regimen- colace BID, will change miralax to scheduled daily and add senna/monitor DVT proph: lovenox SQ once daily PT/OT rec SNF, CM notified Per CM, accepted by center care on 03/13, with potential discharge on 03/15 #Anemia | thrombocytopenia (Improving) Patient's Hgb continues to downtrend 8.6 -> 8.0 -> 8.7 -> 9.1 Platelet count dropped from 96 -> 77 -> 105 -> 136 Contusion noted on left lower extremity; however, no fracture seen on XR tibia- fibula LT on 03/13 Okay to continue enoxaparin Continue to monitor with daily CBC #Hypoglycemia (resolved) Found to be hypoglycemic on arrival, Glu 57. Reports did not eat dinner the day of admission/poor intake reported. Not diabetic/no meds at baseline Hypoglycemia protocol ordered Monitor for any issues #COPD/tobacco use H/o COPD, 1L with exertion, 2L O2 at night per baseline (however denies using at night) Follows with pulmonology, most recent visit 02/23/2025. >84-[id number] smoking history CXR hyperinflation, ILD, nodule not visualized (from prior CT), no exacerbation noted Continue home meds/trelegy equivalent, albuterol HFA as needed and duonebs if needed Continue incentive spirometry to prevent issues. Remains on wellbutrin/patches for tobacco use and is actively trying to stop. Monitor for any issues #Hypothyroidism TSH elevated 9.806, T4 wnl but checked t3 w/ recent adj as well and LOW 1.75 --> Recent adj by pcp w/ synthroid to 75mcg and discussed TSH and rec'd to increase --> Synthroid further increased to 88mcg and rec for repeat TFT outpt/ PCP 4- 6wks #HTN Currently holding losartan per PCP (02/26/2025, was on 25mg but BP was below goal) BP elevated on admit likely 2nd to fall/fx/pain, currently 105/60 and will remain OFF/monitor. Likely should be stopped at dc #B12 deficiency Checked w/ balance issues at baseline and ws LOW normal 248 -Started 1000mcg PO replacement and would continue at ca. #HLD- Crestor #GERD/Vu's- Pantoprazole #OP- Fosamax #Neuroendocrine tumor- S/p resection 2011, octreotide monthly w/ CCP DVT proph: SCDs ordered, lovenox SQ added post-op per discussion w/ ortho Dispo: Discharge to SNF Admission HPI Per Admitting Provider 79-year-old female PMHx HTN, hypothyroidism, HLD, GERD, hyperactive bladder, OP, COPD, tobacco abuse, and neuroendocrine carcinoma presenting s/p ground-level fall and complaining of L hip pain on day [employer]. States that she was using her rolling walker when it got caught under her feet and she tripped over it. Landed on her left side, did not hit anything other than her hip. Denying symptoms prior to the fall to include chest pain, shortness of breath, numbness or tingling, or weakness. Patient laid on the ground for approximately 2 hours and was unable to get herself up. No known LOC. Patient states that she has had falls before, but did not have any symptoms prior to this 1. Complaining of improved L hip pain, but no tingling in the leg. Did have some nausea with vomiting following pain med administration, but no abdominal pain. No headaches or vision changes. Denying chest pain, shortness of breath, palpitations, abdominal pain, D/C, URI symptoms, fever/chills, LUTS, or LOC. Patient states that her last meal between breakfast and lunch time the day [employer]IX DEVELOPER. Patient does not take any blood thinners. Again, did not hit head. ED evaluation reveals no leukocytosis, H&H 11.4/35.2; PT/INR WNL; CMP with glucose 57, calcium 8.3; CK 67; troponin 7.8; TSH 9.86, pending free T4; UA with some protein and ketones but no infection; hip/pelvis XR acute impacted intertrochanteric and neck fracture through proximal L femur, varus angulation of distal fracture fragment; CXR hyperinflation, ILD, nodule not visualized; EKG NSR, 67 bpm.; Provided with Zofran 4 mg IV, [place] morphine 0.25 mg IV, fentanyl citrate 50 mcg IV, and acetaminophen 1 g IV in ED. Please see Dr. Mercado's attestation for adjustments/additions to treatment plan. Admission Exam Per Admitting Provider General: No acute distress Skin: Warm and dry; varicose veins bilaterally (LE) Head: Normocephalic, atraumatic Eyes: PERRL, conjunctivae clear, sclera non-icteric; wearing glasses ENT: External ear and ear canal without swelling; nose atraumatic; no teeth, tongue normal appearance, pharynx normal Neck: Supple, no LAD Cardio: RRR, no M/G/R, S1 and S2 normal Resp: No respiratory distress, Lungs CTA in all lobes bilaterally, no wheezes, rales, or rhonchi Abdomen: Soft, symmetric, nontender; No masses or hepatosplenomegaly; Bowel sounds normoactive MSK: LLE shortened, no ecchymosis noted; pulses palpable and equal; no edema. Neuro: Awake, alert; Sensation intact bilaterally; CN grossly intact Psych: Appropriate mood and affect; good judgement and insight. Son present in room at time of visit. Discharge Exam General: no acute distress; pleasant affect; sat patient up in her bed with the help of METER SUPERVISOR, patient did exhibit moderate physical distress due to moving her left hip; non-toxic appearing; frail appearing; cooperative; SpO2 94% on RA HEENT: normocephalic, atraumatic; no scleral icterus; PERRLA; vision and hearing intact Neck: supple; no lymphadenopathy; trachea midline Skin: warm, dry without signs of tenting; no cyanosis CV: chest wall NTP; RRR; S1/S2 normal; no murmurs/rubs/gallops; pulses intact and symmetric at radial, DP, and PT Lungs: no acute respiratory distress; symmetrical chest wall expansion; clear breath sounds across all lung plascencia w/o adventitious sounds; no wheezing ABD: Soft, NTP; BS present; no rebound/guarding; no distention LLE: Dressing along the left hip is without signs of erythema or infection; left hip is NTP today MSK: no tics or fasciculations; no edema noted in the LEs b/l, nonerythematous; patient demonstrates ability to wiggle toes bilaterally Neuro: A&Ox3; normal mood and affect; fluent speech; no focal deficits; patient report sensation is intact and symmetric in lower extremity bilaterally assessed via light touch Discharge Plan Discharge Items Patient Disposition: Transfer [facility] Reason For Visit: HIP FX Discharge Diagnosis: Hip fracture Condition on Discharge: Fair Goals: You have been hospitalized for an urgent problem which required surgery. During your stay at [facility], we have made an effort to correct the problem that brought you to the hospital while keeping you as comfortable as possible. Surgery and medications were used to bring your condition under control and your discharge instructions will include directions for any medications you should take after leaving the hospital. Please make sure to follow the advice of your surgeon regarding follow up with the surgeon and with your primary care provider. Activity: As commented below Activity Comment: non-weight bearing LLE with walker Weightbearing: Left non-weightbearing Non-emergency contact: Primary Care Provider and Surgeon Call non-emergency contact if: you have any medication questions, your symptoms worsen, your pain is not controlled, your pain is concerning for you and you have a fever Follow-up/Referrals: Rosy Delgado MD [Primary Care Provider] - Lloyd Pemberton DO [Surgeon] - (2 wks) Diet: Regular Diet Texture: Easy to Chew Addtl Attending Provider Instructions: You have been hospitalized after a fall and found to have a hip fracture. Orthopedics was consulted, Dr Pemberton, and you underwent NAILING which is not a replacement but to nail the bones back together. Repeat imaging show improvement in the alignment of the bones and you are to continue ambulation but NON WEIGHT BEARING on the left lower extremity with a walker for now per orthopedics. You should continue Lovenox once daily for blood clot prevention at discharge per discussion with orthopedics given high risk and fracture from acute trauma. Please continue once daily and monitor for any bleeding/issues and can discuss with orthopedics in follow up if able to transition to aspirin twice daily for ongoing prevention until ambulation improved back to baseline. You should continue tylenol and hydrocodone-tylenol (percocet) for pain. Cautious not to exceed 3000mg tylenol in a 24hour period of time. Please continue bowel regimen while on pain control to prevent constipation. Your B12 level was a little low and we have started replacement. Low levels can contribute to balance and memory problems. Your thyroid level was checked and elevated. I discussed this with Dr Delgado and you have been increased to 88mcg daily and should have repeat testing with her in 4-8 weeks to see if any further adjustment is needed. It is also recommended that you continue to hold your losartan (blood pressure medication) until seen by your PCP. You are being discharged on enoxaparin, which is a blood thinner being given to prevent blood clots in your left leg. Please continue to take this every 24 hour until seen for follow-up. Therapy evaluations were undertaken and recommend inpatient detention for ongoing therapy to improve ambulation. Case management has set up for rehab/detention to [facility]. You should follow up with primary care in 7-10 days after discharge to monitor your progress after discharge. Orthopedics follow up in [address] Pemberton for wound check. Please return to the ER with any fever/chills, chest pain, shortness of breath, increased pain/swelling or drainage from incision or for any other symptoms concerning for you. It has been a pleasure being a part of the medical team providing for you while you have been in the hospital. Take care! Pending Studies at Discharge: No Stand-Alone Forms: My [facility] Skilled Items Patient informed of condition?: Yes DNR: No Discharge Level of Care: Acute rehab Communicable Disease: No Discharge Prognosis: Stable Lines: None Urinary Catheter: No Medications and DC Order Prescriptions: New levothyroxine [Synthroid] 88 mcg Tablet 88 mcg PO DAILYBB Qty: 30 0RF cyanocobalamin (vitamin B-12) 500 mcg Tablet 500 mcg PO QAM Qty: 30 0RF enoxaparin [Lovenox] 40 mg/0.4 mL Syringe 40 mg subcut Q24H Qty: 4 0RF magnesium hydroxide [Milk of Magnesia] 400 mg/5 mL Suspension 30 ml PO DAILY PRN (Reason: constipation) Qty: 355 0RF docusate sodium 100 mg Capsule 100 mg PO BID Qty: 60 0RF bisacodyl 10 mg Suppository 10 mg [place] DAILY PRN (Reason: constipation) Qty: 12 0RF polyethylene glycol 3350 [Miralax] 17 gram Powder In Packet 17 g PO DAILY Qty: 30 0RF sennosides [Senokot] 8.6 mg Tablet 8.6 mg PO QAM Qty: 14 0RF polyethylene glycol 3350 [Miralax] 17 gram Powder In Packet 17 g PO DAILY PRN (Reason: constipation) Qty: 30 0RF Continued octreotide,microspheres 20 mg suspension,extended rel recon 20 mg IM MONTHLY Qty: 1 0RF Rx Instructions: AT OFFICE ipratropium-albuterol 0.5 mg-3 mg(2.5 mg base)/3 mL solution for nebulization 3 ml NEB Q4 PRN (Reason: sob) Qty: 180 5RF fluticasone propionate [Flonase Allergy Relief] 50 mcg/actuation spray,suspension 2 spray INTRANASAL QAM Qty: 11.1 6RF albuterol sulfate [Ventolin HFA] 90 mcg/actuation HFA aerosol inhaler 2 puff INHALATION Q4H PRN (Reason: Shortness Of Breath) Qty: 18 3RF Trelegy Ellipta 100-62.5-25 mcg blister with device 1 inh INH QAM Qty: 60 5RF hydrocodone-acetaminophen 5-325 mg tablet 1 tab PO Q6H PRN (Reason: Pain) Qty: 30 0RF (DME) EZ Twist Tubing Misc See Rx Instructions .Route Qty: 10 0RF Rx Instructions: As directed ondansetron HCl 4 mg tablet 4 mg PO Q6H Patient Comments: CONFIRMED W/ PT AND ON CC DC SUMMARY 09/25 pantoprazole 40 mg tablet,delayed release (DR/EC) 40 mg PO QAM Qty: 30 5RF rosuvastatin [Crestor] 40 mg tablet 40 mg PO HS Qty: 90 3RF cyclobenzaprine 10 mg tablet 10 mg PO TID PRN (Reason: muscle spasm) Qty: 90 6RF acetaminophen 325 mg tablet 325 mg PO Q6H PRN (Reason: Pain) (DME) Portable Oxygen Misc See Rx Instructions .Route Qty: 1 0RF Rx Instructions: 1 L via nasal cannula to be used at all times with exertion magnesium oxide 400 mg magnesium Tablet 400 mg PO QAM bupropion HCl 300 mg tablet extended release 24 hr 300 mg PO QAM Held losartan [Cozaar] 25 mg tablet 25 mg PO .DAILY ON HOLD Hold Instructions: continue to hold until seen by PCP or having elevations in SBP >160 Discontinued levothyroxine 75 mcg tablet 75 mcg PO DAILY 90 Days Qty: 90 3RF Discharge Orders: Discharge Order (Routine); Ordered 03/15/25 Ordered By: Bala Ruiz Admission Data Admit Date/Time: 03/09/25 00:34 Attending Provider: Herminio Walton Admit Provider: Zane Mercado Primary Care Provider: Rosy Delgado Other Providers: [place]; Zane Mercado; Lloyd Pemberton Other Interventions: Discharge Summary Assessment (RN) Last Done: 03/15/25 09:51 Hospital Stay Data Consultations 03/09/25 00:03 ED Decision to Admit Stat 03/09/25 01:54 Consult Orthopedic Surgery Routine Procedures Performed Operation Date: 03/09/25 08:00 Actual Procedures p Open Reduction, Cephalomedullary Nailing of the Left Hip, Physician Directed Fluroscopy Greater than 1 hour(Left) - Lloyd Pemberton, DO Diagnostic Imagining Performed 03/09/25 06:37 CT pelvis wo con Stat 03/09/25 14:30 FL femur LT 2V Routine Discharge Instructions Given to Patient (Per Discharging Provider) You have been hospitalized after a fall and found to have a hip fracture. Orthopedics was consulted, Dr Pemberton, and you underwent NAILING which is not a replacement but to nail the bones back together. Repeat imaging show improvement in the alignment of the bones and you are to continue ambulation but NON WEIGHT BEARING on the left lower extremity with a walker for now per orthopedics. You should continue Lovenox once daily for blood clot prevention at discharge per discussion with orthopedics given high risk and fracture from acute trauma. Please continue once daily and monitor for any bleeding/issues and can discuss with orthopedics in follow up if able to transition to aspirin twice daily for ongoing prevention until ambulation improved back to baseline. You should continue tylenol and hydrocodone-tylenol (percocet) for pain. Cautious not to exceed 3000mg tylenol in a 24hour period of time. Please continue bowel regimen while on pain control to prevent constipation. Your B12 level was a little low and we have started replacement. Low levels can contribute to balance and memory problems. Your thyroid level was checked and elevated. I discussed this with Dr Delgado and you have been increased to 88mcg daily and should have repeat testing with her in 4-8 weeks to see if any further adjustment is needed. It is also recommended that you continue to hold your losartan (blood pressure medication) until seen by your PCP. You are being discharged on enoxaparin, which is a blood thinner being given to prevent blood clots in your left leg. Please continue to take this every 24 hour until seen for follow-up. Therapy evaluations were undertaken and recommend inpatient detention for ongoing therapy to improve ambulation. Case management has set up for [facility] You should follow up with primary care in 7-10 days after discharge to monitor your progress after discharge. Orthopedics follow up in [address] Pemberton for wound check. Please return to the ER with any fever/chills, chest pain, shortness of breath, increased pain/swelling or drainage from incision or for any other symptoms concerning for you. It has been a pleasure being a part of the medical team providing for you while you have been in the hospital. Take care! Supervising Physician Co-Signing Physician Notes I personally examined the patient and verified all sharma points of history and exam, discussed case, and agree with decision making with Anand LLANOS No new problems. For rehab today. Vitals noted, in general she is awake pleasant no distress. Breathing unlabored no accessory muscle use good effort. Skin without rashes pallor or icterus. Neuro without focal deficits. Hip fracturenow stable for rehab. Going to [facility]. Otherwise as above. Total Time Total Time Spent Total Time Spent (In Minutes): 35 C[place] [address] INP/OBS DISCH >30 MIN Patient Type Established Medical Decision Making Moderate Complexity Diagnoses Osteoporotic hip fracture M80.059A"
[2025-03-15 08:05] VITALS: BP 139/75; PULSE 85; TEMP 98.8; O2SAT 94
== END 2025-03-15 10:21 | DRG 481 ==
LOC: ED 22:01 → EDINP 03-09 00:34 → SUATTDRO 03-09 00:34 → EDINP 03-09 13:22 → 3N 03-09 19:44